=== PATIENT | female | born 1940 | race Caucasian/White ===

== ENCOUNTER → 2018-01-26 07:07 | Outpatient (CLI) | payer MEDICARE, SELFPAY ==
[2018-01-26 07:34] LABS: Hemoglobin A1C% w Est Avg Glu 7.6 % (4.0-6.0)
[2018-01-26 07:50] LABS: Alanine Aminotransferase 28 IU/L (9-52); Aspartate Aminotransferase 26 IU/L (14-36); BUN Creatinine Ratio 33.3 (6-22); Blood Urea Nitrogen 30 mg/dL (7-17); Calcium 10.1 mg/dL (8.4-10.2); Carbon Dioxide 30 mmol/L (22-32); Chloride 100 mmol/L (98-107); Cholesterol 102 mg/dL (140-199); Estimated Glomerular Filt Rate > 60.0 mL/min (>60); Glucose 122 mg/dL (80-110); HDL Cholesterol 42 mg/dL (40-60); HEMOLYSIS < 15 (0-50); LDL Cholesterol Calculated 40 mg/dL (<100); Potassium 4.6 mmol/L (3.4-5.1); Sodium 141 mmol/L (137-145); Triglycerides 101 mg/dL (35-150)
== END ==
PROVIDERS: PCP Internal Medicine; Visit Provider Internal Medicine
DX: I10 Essential (primary) hypertension (principal); E78.00 Pure hypercholesterolemia, unspecified; E11.9 Type 2 diabetes mellitus without complications
CPT/HCPCS: 36415; 80048; 80061; 83036; 84450; 84460

== ENCOUNTER → 2018-09-05 11:50 | Outpatient (CLI) | payer MEDICARE, SELFPAY ==
--- NOTE | 2018-09-05 | DI.RAD.S_ITS ---
PROCEDURE: XR CHEST 2V INDICATIONS: BRONCHITIS TECHNIQUE: 2 views of the chest were acquired. COMPARISON: [facility], , CHEST 1 VIEW, 09/18/2014, 17:53. FINDINGS: Surgical changes and devices: None. Lungs and pleura: Lungs are clear. No pleural effusions or pneumothorax. Bilateral perihilar infiltrates and peribronchial cuffing consistent with bronchitis or bronchopneumonia. Mediastinum: Mediastinal contours are normal. Heart size is normal. Bones and chest wall: No suspicious bony abnormalities. Soft tissues appear unremarkable. IMPRESSION: Bilateral perihilar infiltrates and peribronchial cuffing consistent with bronchitis. Dictated by: Santos Mujica M.D. on 09/05/2018 at 14:16 Approved by: Santos Mujica M.D. on 09/05/2018 at 14:25
== END ==
PROVIDERS: PCP Internal Medicine; Visit Provider Student in an Organized Health Care Education/Training Program
DX: J20.9 Acute bronchitis, unspecified (principal)
CPT/HCPCS: 71046

== ENCOUNTER → 2019-02-24 08:32 | Outpatient (CLI) | payer MEDICARE, SELFPAY | PROVIDERS: PCP Internal Medicine; Visit Provider Internal Medicine | DX: E11.9 Type 2 diabetes mellitus without complications (principal) | CPT/HCPCS: 36415; 83036 ==

== ENCOUNTER 2019-05-08 10:48 | Emergency (ER) | payer MEDICARE, SELFPAY ==
[2019-05-08] VITALS (8 sets, daily range): BP systolic 110–154; BP diastolic 63–100; PULSE 72–122; RESP 20–27; TEMP 36.3; O2SAT 96–98; BMI 24.0
--- NOTE | 2019-05-08 11:20 | DI.RAD.S_ITS ---
PROCEDURE: XR CHEST 2V INDICATIONS: shortness of breath TECHNIQUE: 2 views of the chest were acquired. COMPARISON: [facility], CR, XR CHEST 2V, 09/05/2018, 12:02. FINDINGS: Surgical changes and devices: None. Lungs and pleura: Interstitial prominence within the perihilar regions is present. There slight blunting of left costophrenic angle. No large area of consolidation, effusion, or pneumothorax is evident. Mediastinum: Mediastinal contours are normal. The heart is enlarged, which is increased in the interim. Bones and chest wall: No suspicious bony abnormalities. Soft tissues appear unremarkable. IMPRESSION: 1. Cardiomegaly with mild to moderate vascular congestion, likely representing developing pulmonary edema. No definite pneumonia. 2. Trace left effusion. Dictated by: Clark Bolaños M.D. on 05/08/2019 at 10:39 Approved by: Clark Bolaños M.D. on 05/08/2019 at 10:42
[2019-05-08 11:30] LABS: Add Manual Diff / Slide Review NO; Basophils Absolute Auto 0 /uL (0-100); Basophils Percent Auto 0.5 % (0-2); Eosinophils Absolute Auto 200 /uL (0-450); Eosinophils Percent Auto 2.9 % (2-4); Hematocrit 28.4 % (36-46); Lymphocytes Absolute Auto 1700 /uL (1100-4500); Lymphocytes Percent Auto 22.3 % (25-40); Mean Corpuscular HGB Conc 31.7 % (30-36); Mean Corpuscular Hemoglobin 22.5 PG (26-34); Mean Corpuscular Volume 71.2 fL (80-100); Monocytes Absolute Auto 600 /uL (0-900); Monocytes Percent Auto 7.2 % (3-14); Neutrophils Absolute Auto 5200 /uL (1500-7000); Neutrophils Percent Auto 67.1 % (50-75); Platelet Count 299 X10^3/uL (150-400); Red Blood Cell Count 3.99 X10^6/uL (4.0-5.2); Red Cell Distribution Width 18.4 % (11.6-14.8); White Blood Cell Count 7.8 X10^3/uL (4.5-11.0)
[2019-05-08 11:36] LABS: Alanine Aminotransferase 67 IU/L (<35); Albumin 3.8 g/dL (3.5-5.0); Albumin Globulin Ratio 1.7 (1.0-2.8); Alkaline Phosphatase 99 U/L (38-126); Aspartate Aminotransferase 47 IU/L (14-36); BUN Creatinine Ratio 27.5 (6-22); Blood Urea Nitrogen 22 mg/dL (7-17); Calcium 8.6 mg/dL (8.4-10.2); Carbon Dioxide 22 mmol/L (22-32); Chloride 106 mmol/L (98-107); Estimated Glomerular Filt Rate > 60.0 mL/min (>60); Globulin 2.3 g/dL (1.7-4.1); Glucose 241 mg/dL (80-110); HEMOLYSIS < 15 (0-50); Potassium 4.2 mmol/L (3.4-5.1); Sodium 139 mmol/L (137-145); Total Protein 6.1 g/dL (6.3-8.2)
[2019-05-08 11:53] LABS: Lactate (Lactic Acid) 2.8 mmol/L (0.7-2.1)
--- NOTE | 2019-05-08 12:31 | ED_ITS ---
HPI - SOB/Dyspnea General Chief Complaint: Shortness of Breath/Dyspnea Stated Complaint: suspected hearrt attack Time Seen by Provider: 05/08/19 11:12 Source: patient Mode of arrival: Ambulatory Limitations: no limitations History of Present Illness HPI Narrative: Patient comes emergency department complaining of shortness of breath, especially with this is been going on since this morning, she states. Patient states she has chronic ?puffiness? of her bilateral ankles and feet, but this has not seemed worse than usual. Patient denies any chest pain, nausea or vomiting, fever chills, or cough. She states that she has a history of coronary artery disease and had 3 stents placed back in 2014. She states she sees Dr. Rosa for Cardiology, but her last visit was in 2017. Patient denies any other complaints at this time. Related Data Home Medications Medication Instructions Recorded Confirmed atorvastatin [Lipitor] 20 mg PO DAILY #0 08/22/17 05/08/19 allopurinol 200 mg PO DAILY 05/08/19 05/08/19 aspirin 325 mg PO DAILY 05/08/19 05/08/19 codeine-guaifenesin [Guaifenesin 5 ml PO Q4-6H PRN 05/08/19 05/08/19 AC] gabapentin 300 mg PO TID 05/08/19 05/08/19 insulin NPH isoph U-100 human 10 unit SUBCUT BID 05/08/19 05/08/19 [Novolin N NPH U-100 Insulin] lidocaine HCl 1 applic TOPICAL TID PRN 05/08/19 05/08/19 lisinopril 40 mg PO DAILY 05/08/19 05/08/19 metformin 1,000 mg PO BID 05/08/19 05/08/19 valacyclovir [Valtrex] 2,000 mg PO BID 05/08/19 05/08/19 Previous Rx's Medication Instructions Recorded diltiazem HCl [Cardizem CD] 240 mg PO DAILY #20 cap 05/08/19 furosemide [Lasix] 20 mg PO QAM #7 tab 05/08/19 Allergies Allergy/AdvReac Type Severity Reaction Status Date / Time No Known Drug Allergies Allergy Verified 02/18/19 08:50 Review of Systems Constitutional Constitutional: Denies chills, Denies fatigue, Denies fever(s), Denies frequent falls, Denies lethargy and Denies weakness Eyes Eyes: Denies change in vision, Denies eye discharge, Denies irritation and Den ies loss of vision ENT Ears, Nose, Mouth, and Throat: Denies change in voice, Denies dizziness, Denies neck pain, Denies sore throat and Denies throat swelling Cardiovascular Cardiovascular: Denies chest pain, Denies irregular heart rhythm, Denies lightheadedness, Denies palpitations, Reports dyspnea, Reports dyspnea on exer tion and Denies orthopnea Respiratory Respiratory: Denies cough, Reports dyspnea, Reports dyspnea on exertion and Denies wheezing Gastrointestinal Gastrointestinal: Denies abdominal pain, Denies change in bowel habits, Denies diarrhea, Denies nausea and Denies vomiting Genitourinary Genitourinary: Denies hematuria, Denies flank pain, Denies urinary incontinence and Denies urinary urgency Musculoskeletal Musculoskeletal: Denies back pain, Denies muscle weakness, Denies neck pain, Denies numbness and Denies tingling Integumentary/Breasts Skin/Breast: Denies pruritus, Denies erythema, Denies rash and Denies wounds Neurologic Neurologic: Denies behavioral changes, Denies confusion, Denies dizziness, Denies frequent falls, Denies loss of vision, Denies numbness, Denies tingling and Denies weakness Psychiatric Psychiatric: Denies anxiety, Denies behavioral changes, Denies confusion, Denies depression, Denies homicidal ideation and Denies suicidal ideation Endocrine Endocrine: Denies fatigue, Denies flushing and Denies palpitations Hematologic/Lymphatic Hematologic/Lymphatic: Denies easy bruising Allergic/Immunologic Allergic/Immunologic: Denies urticaria, Denies throat swelling and Denies wheezing Patient History Medical History CAD (coronary artery disease) (Acute) HTN (hypertension) (Acute) Surgical History H/O coronary angioplasty (Acute) Social History Smoking Status: Never smoker alcohol intake frequency: other Substance Use Type: does not use Exam Initial Vital Signs Initial Vital Signs: Vital Signs Temperature 97.3 F L 05/08/19 10:57 Pulse Rate 115 H 05/08/19 10:57 Respiratory Rate 20 05/08/19 10:57 Blood Pressure 154/100 H 05/08/19 10:57 Pulse Oximetry 96 05/08/19 10:57 Const General: cooperative and well developed Nutritional Appearance: well nourished Orientation: alert, awake, oriented x3 and not confused [facility] Head: normocephalic and atraumatic Ears: external ears normal Nose: external nose normal and No nasal discharge Face and sinus: face symmetric and No dry mucous membranes Mouth: oral mucosae normal and moist mucous membranes Teeth and gingiva: dentition normal Eyes General: appearance normal, both eyes and all related structures Eyelids: eyelids normal Conjunctivae: conjunctivae normal Sclera: sclerae normal Pupils: PERRL EOM: EOM intact bilaterally Neck Neck: normal visual inspection, trachea midline, No lymphadenopathy, No midline deformity and No JVD Lymphatic: No lymphedema Chest Chest: normal inspection of the chest Resp Effort & Inspection: normal respiratory effort, able to speak in complete sentences, no respiratory distress and no use of accessory muscles Auscultation: clear to auscultation bilaterally, no rales, no rhonchi and no wheezes Cardio Rate: regular rate Rhythm: regular rhythm Heart Sounds: no click, no gallops, no murmurs and no rubs Pulses: normal peripheral pulses GI Inspection: non-distended Palpation: soft, no hepatosplenomegaly, No guarding, No pulsatile mass and No tender Auscultation: normal bowel sounds Back/Spine/Pelvis Back: No CVA tenderness Cervical Spine: cervical ROM normal and No pain with cervical ROM Thoracic/Lumbar Spine: thoracic and lumbar spine normal to inspection Skin General: no rashes or lesions noted, No jaundice and No petechiae Neuro General: alert, oriented x3, gait normal and no focal motor deficits Speech: speech normal Extrem General: full ROM, no clubbing, cyanosis or edema, no pedal edema and no calf tenderness Psych Appearance: well kempt Mental Status: mental status grossly normal Attitude: cooperative Thought Content: normal and suicidality Judgment: judgment good Course Course Course Narrative: Patient was worked up with labs, EKG, and chest x-ray. She was found to be atrial fibrillation with mild RVR, as as to CHF. She was treated with IV Cardizem and Lasix, to which she did respond very well. patient was found to be feeling much better, and had urinated quite a bit in the emergency department. I felt she was stable for discharge home. The patient is established with Dr. Rosa of Cardiology, with whom she can follow up. I have advised her to call Dr. Rosa's office to set up a follow-up appointment to determine a good long-term plan for her conditions. Orders Ordered: Discontinued Medications Diltiazem HCl (Cardizem) 20 mg IV NOW ONE Stop: 05/08/19 12:29 Last Admin: 05/08/19 12:32 Dose: 20 mg Documented by: PAZ Furosemide (Lasix) 40 mg IV NOW ONE Stop: 05/08/19 13:46 Last Admin: 05/08/19 13:49 Dose: 40 mg Documented by: PAZ Vital Signs Vital signs: Vital Signs - 8 hr 05/08/19 10:57 05/08/19 11:39 05/08/19 12:00 Temperature 97.3 F L Pulse Rate 115 H 79 114 H Respiratory Rate 20 27 H 27 H Blood Pressure 154/100 H Blood Pressure [Left Arm] 137/78 120/63 Pulse Oximetry 96 97 97 MDM - SOB/Dyspnea Medical Records Attestation: I reviewed the patient's medical records. Lab Data Attestation: I reviewed the patient's lab results. Result diagrams: 05/08/19 11:13 05/08/19 11:13 Labs: Lab Results 05/08/19 05/08/19 05/08/19 Range/Units 11:13 11:13 11:25 WBC 7.8 (4.5-11.0) X10^3/uL RBC 3.99 L (4.0-5.2) X10^6/uL Hgb 9.0 L (12.0-16.0) g/dL Hct 28.4 L (36-46) % MCV 71.2 L (80-100) fL MCH 22.5 L (26-34) PG MCHC 31.7 (30-36) % RDW 18.4 H (11.6-14.8) % Plt Count 299 (150-400) X10^3/uL Neut % (Auto) 67.1 (50-75) % Lymph % (Auto) 22.3 L (25-40) % [place] % (Auto) 7.2 (3-14) % Eos % (Auto) 2.9 (2-4) % Baso % (Auto) 0.5 (0-2) % Neut # (Auto) 5200 (9495-8095) /uL Lymph # (Auto) 1700 (4837-2918) /uL [place] # (Auto) 600 (0-900) /uL Eos # (Auto) 200 (0-450) /uL Baso # (Auto) 0 (0-100) /uL Sodium 139 (137-145) mmol/L Potassium 4.2 (3.4-5.1) mmol/L Chloride 106 (98-107) mmol/L Carbon Dioxide 22 (22-32) mmol/L BUN 22 H (7-17) mg/dL Creatinine 0.80 (0.52-1.04) mg/dL Estimated GFR > 60.0 (>60) mL/min BUN/Creatinine Ratio 27.5 H (6-22) Glucose 241 H (80-110) mg/dL Lactate (0.7-2.1) mmol/L Calcium 8.6 (8.4-10.2) mg/dL Total Bilirubin 1.0 (0.2-1.3) mg/dL AST 47 H (14-36) IU/L ALT 67 H (<35) IU/L Alkaline Phosphatase 99 (38-126) U/L Total Creatine Kinase 53 (30-135) U/L CK-MB (CK-2) TNP CK-MB (CK-2) Rel Index TNP Troponin I 0.016 (0.01-0.034) ng/mL B-Natriuretic Peptide (<100) Total Protein 6.1 L (6.3-8.2) g/dL Albumin 3.8 (3.5-5.0) g/dL Globulin 2.3 (1.7-4.1) g/dL Albumin/Globulin Ratio 1.7 (1.0-2.8) 05/08/19 05/08/19 05/08/19 Range/Units 11:35 12:29 13:47 WBC (4.5-11.0) X10^3/uL RBC (4.0-5.2) X10^6/uL Hgb (12.0-16.0) g/dL Hct (36-46) % MCV (80-100) fL MCH (26-34) PG MCHC (30-36) % RDW (11.6-14.8) % Plt Count (150-400) X10^3/uL Neut % (Auto) (50-75) % Lymph % (Auto) (25-40) % [place] % (Auto) (3-14) % Eos % (Auto) (2-4) % Baso % (Auto) (0-2) % Neut # (Auto) (2413-1463) /uL Lymph # (Auto) (9200-6271) /uL [place] # (Auto) (0-900) /uL Eos # (Auto) (0-450) /uL Baso # (Auto) (0-100) /uL Sodium (137-145) mmol/L Potassium (3.4-5.1) mmol/L Chloride (98-107) mmol/L Carbon Dioxide (22-32) mmol/L BUN (7-17) mg/dL Creatinine (0.52-1.04) mg/dL Estimated GFR (>60) mL/min BUN/Creatinine Ratio (6-22) Glucose (80-110) mg/dL Lactate 2.8 H 2.6 H (0.7-2.1) mmol/L Calcium (8.4-10.2) mg/dL Total Bilirubin (0.2-1.3) mg/dL AST (14-36) IU/L ALT (<35) IU/L Alkaline Phosphatase (38-126) U/L Total Creatine Kinase (30-135) U/L CK-MB (CK-2) CK-MB (CK-2) Rel Index Troponin I (0.01-0.034) ng/mL B-Natriuretic Peptide 239 H (<100) Total Protein (6.3-8.2) g/dL Albumin (3.5-5.0) g/dL Globulin (1.7-4.1) g/dL Albumin/Globulin Ratio (1.0-2.8) 05/08/19 05/08/19 Range/Units 13:47 13:47 WBC (4.5-11.0) X10^3/uL RBC (4.0-5.2) X10^6/uL Hgb (12.0-16.0) g/dL Hct (36-46) % MCV (80-100) fL MCH (26-34) PG MCHC (30-36) % RDW (11.6-14.8) % Plt Count (150-400) X10^3/uL Neut % (Auto) (50-75) % Lymph % (Auto) (25-40) % [place] % (Auto) (3-14) % Eos % (Auto) (2-4) % Baso % (Auto) (0-2) % Neut # (Auto) (5995-2261) /uL Lymph # (Auto) (5707-9017) /uL [place] # (Auto) (0-900) /uL Eos # (Auto) (0-450) /uL Baso # (Auto) (0-100) /uL Sodium (137-145) mmol/L Potassium (3.4-5.1) mmol/L Chloride (98-107) mmol/L Carbon Dioxide (22-32) mmol/L BUN (7-17) mg/dL Creatinine (0.52-1.04) mg/dL Estimated GFR (>60) mL/min BUN/Creatinine Ratio (6-22) Glucose (80-110) mg/dL Lactate (0.7-2.1) mmol/L Calcium (8.4-10.2) mg/dL Total Bilirubin (0.2-1.3) mg/dL AST (14-36) IU/L ALT (<35) IU/L Alkaline Phosphatase (38-126) U/L Total Creatine Kinase (30-135) U/L CK-MB (CK-2) CK-MB (CK-2) Rel Index Troponin I 0.014 (0.01-0.034) ng/mL B-Natriuretic Peptide 262 H (<100) Total Protein (6.3-8.2) g/dL Albumin (3.5-5.0) g/dL Globulin (1.7-4.1) g/dL Albumin/Globulin Ratio (1.0-2.8) Imaging Data Chest x-ray: Radiologist's impression: [address] [address] XRay Report Signed Patient: Carlos Zhang#: [id number] : 1Acct:[id number] Age/Sex: 78 / FDate of Service: 05/08/19 Loc: ED Accession Number: [id number] Procedure: XR chest 2V Ordering Provider: Joyce Hua MD PROCEDURE: XR CHEST 2V INDICATIONS: shortness of breath TECHNIQUE: 2 views of the chest were acquired. COMPARISON: [facility], CR, XR CHEST 2V, 09/05/2018, 12:02. FINDINGS: Surgical changes and devices: None. Lungs and pleura: Interstitial prominence within the perihilar regions is present. There slight blunting of left costophrenic angle. No large area of consolidation, effusion, or pneumothorax is evident. Mediastinum: Mediastinal contours are normal. The heart is enlarged, which is increased in the interim. Bones and chest wall: No suspicious bony abnormalities. Soft tissues appear unremarkable. IMPRESSION: 1. Cardiomegaly with mild to moderate vascular congestion, likely representing developing pulmonary edema. No definite pneumonia. 2. Trace left effusion. Dictated by: Clark Bolaños M.D. on 05/08/2019 at 10:39 Approved by: Clark Bolaños M.D. on 05/08/2019 at 10:42 ECG Data Attestation: I personally reviewed and interpreted this ECG as follows: (See below) Interpretation: Twelve lead EKG performed May 08, 2018 at 10:59 a.m., as well as follows: Irregular ventricular rhythm with a rate of 119 beats per minute P waves in [place] intervals undetectable QRS duration 90 milliseconds QTC interval [address] T wave changes Interpretation: Atrial fibrillation with rapid ventricular response; borderline right axis deviation; nonspecific ST T wave abnormality, no signs of acute ischemia; abnormal EKG as interpreted by ED MD. Discharge Plan Departure Patient Disposition: Home Clinical Impression: Atrial fibrillation with rapid ventricular response Congestive heart failure Qualifiers: Heart failure type: unspecified Heart failure chronicity: acute on chronic Qualified Code(s): I50.9 - Heart failure, unspecified Discharge Date/Time: 05/08/19 14:53 Instructions: DI for Heart Failure, DI for Atrial Fibrillation Activity Restrictions/Additional Instructions: There is no evidence of heart attack or pneumonia today. You do have an irregular heart rhythm called atrial fibrillation. Thishas caused some mild congestive heart failure, meaning that there has been some back up of your blood between the right heart and the left heart, and this has caused some fluid to buildup in your lungs. You have been started on a diuretic medication for this today. It is important that you follow up with Dr. Rosa for a recheck regarding these issues. You will be started on a temporary course of a diuretic from the emergency department today, and you also be started on medication for the atrial fibrillation. However, it is up to Dr. Rosa to determine the best long-term plan for these conditions. Please call her office 1st thing tomorrow morning to make an appointment to follow up with her in the next week or two. Prescriptions: New furosemide [Lasix] 20 mg tablet 20 mg PO QAM Qty: 7 RF: 0 diltiazem HCl [Cardizem CD] 240 mg capsule,extended release 24hr 240 mg PO DAILY Qty: 20 RF: 0 No Action atorvastatin [Lipitor] 20 MG tablet 20 mg PO DAILY Qty: 0 RF: 0 allopurinol 100 mg Tablet 200 mg PO DAILY RF: 0 metformin 1,000 mg Tablet 1,000 mg PO BID RF: 0 Novolin N NPH U-100 Insulin 100 unit/mL Suspension 10 unit SUBCUT BID RF: 0 codeine-guaifenesin [Guaifenesin AC] 10-100 mg/5 mL Liquid 5 ml PO Q4-6H PRN (Reason: Cough) RF: 0 lisinopril 40 mg Tablet 40 mg PO DAILY RF: 0 lidocaine HCl 2 % Cream 1 applic TOPICAL TID PRN (Reason: pain) RF: 0 valacyclovir [Valtrex] 1,000 MG tablet 2,000 mg PO BID RF: 0 gabapentin 300 mg Capsule 300 mg PO TID RF: 0 aspirin 325 mg Tablet 325 mg PO DAILY RF: 0 Referrals: Sayda Rosa MD [Physician] - Fariha Rollins MD [Primary Care Provider] -
[2019-05-08] MEDS: dilTIAZem 5 MG/ML SDV 20 MG IV (12:32)
[2019-05-08 12:35] LABS: Creatine Kinase 53 U/L (30-135)
[2019-05-08 12:49] LABS: Troponin I 0.016 ng/mL (0.01-0.034)
[2019-05-08 12:55] LABS: B Type Natriuretic Peptide 239 (<100)
[2019-05-08 13:38] LABS: Reflexed Lactate in 2 Hours Y
[2019-05-08] MEDS: FUROSEMIDE 40 MG/4 ML VIAL IV (13:49)
[2019-05-08 14:06] LABS: Lactate 2HR (Lactic Acid Rflx) 2.6 mmol/L (0.7-2.1)
[2019-05-08 14:08] LABS: B Type Natriuretic Peptide 262 (<100)
[2019-05-08 14:18] LABS: Troponin I 0.014 ng/mL (0.01-0.034)
== END 2019-05-08 14:53 | disposition home or self-care (01) ==
PROVIDERS: Emergency Provider Emergency Medicine; PCP Internal Medicine
DX: I48.20 Chronic atrial fibrillation, unspecified (principal); I50.9 Heart failure, unspecified
CPT/HCPCS: 36415; 71046; 80053; 82550; 83605; 83880; 84484; 85025; 93005; 96374; 96375; 99284; 99285; J1940

== ENCOUNTER → 2019-05-16 17:28 | Outpatient (CLI) | payer MEDICARE, SELFPAY ==
[2019-05-16 18:21] LABS: Magnesium 1.1 mg/dL (1.6-2.3)
[2019-05-16 18:37] LABS: Free T4, Direct Thyroxine 0.97 ng/dL (0.78-2.19)
[2019-05-16 18:51] LABS: Thyroid Stimulating Hormone 2.38 uIU/mL (0.47-4.68)
== END ==
PROVIDERS: PCP Internal Medicine; Visit Provider Internal Medicine
DX: I48.0 Paroxysmal atrial fibrillation (principal)
CPT/HCPCS: 36415; 83735; 84439; 84443

== ENCOUNTER → 2019-05-19 14:39 | Outpatient (CLI) | payer MEDICARE, SELFPAY ==
--- NOTE | 2019-05-19 | DI.ECHO.S_ITS ---
[facility]---------+ [facility] +---------+ : : [address] [place] : : : : [id number] : : : : Phone: [phone]+ Echocardiogram Report + + :Name: RIZWAN SOLIMAN Study Date: 05/19/2019 Height: 64 in : :[facility] Weight: 139 lb : : Gender: Female BSA: 1.7 m2 : :: 1940 Age: 78 yrs BP: 144/78 mmHg: :Reason For Study: Atrial fibrillation - paroxysmal : :Ordering Physician: Sayda : :Moe Escobar Performed By: Flaquita Roman : :Referring: Fariha Rollins : + + Interpretation Summary Afib with controlled rate. Normal LV size and wall thickness; normal wall motion and LV systolic function. Low normal ejection fraction. EF is 50-55%. Severe LA enlargement; mild-moderate RA enlargement. No significant valvular abnormalities. Compared to prior study 01/17/2014 afib is new. LA enlargement progressed from mild to severe. Procedure: A two-dimensional transthoracic echocardiogram with color flow and Doppler was performed. The study quality was technically good. Comparison is made with the echocardiogram of 01-17-14. The patient was in atrial fibrillation with heart rates between 58-84 bpm during the exam. Left Ventricle: The left ventricle is normal in size. There is normal left ventricular wall thickness. The ejection fraction is estimated to be 55-60%. Diastolic function could not be accurately assessed due to atrial fibrillation. Right Ventricle: Borderline right ventricular enlargement. The right ventricular systolic function is normal. Atria: The left atrium is severely dilated. The right atrium is mild to moderately dilated. The interatrial septum is intact with no evidence for an atrial septal defect. Mitral Valve: The mitral valve is grossly normal. There is mild mitral regurgitation. Aortic Valve: The aortic valve is trileaflet. The aortic valve opens well. There is no aortic regurgitation. Tricuspid Valve: The tricuspid valve is not well visualized, but is grossly normal. There is mild tricuspid regurgitation. The right ventricular systolic pressure is estimated to be at least 34 mmHg based on an estimated right atrial pressure of 3 mm Hg. Pulmonic Valve: The pulmonic valve is not well seen, but is grossly normal. There is trace pulmonic regurgitation. Great Vessels: The aortic root is normal size. The dimensions of the ascending aorta are normal. The ascending aorta is normal in size. The IVC is of normal diameter and collapses greater than 50% with a sniff. This suggests a low right atrial pressure of 3 mm Hg. Pericardium/ Pleura There is no pericardial effusion. There is no pleural effusion. MMode/2D Measurements & Calculations LVIDd: 5.3 cm Ao root diam: 2.9 cm LVIDs: 3.7 cm Aortic Jxn: 2.3 cm FS: 29.9 % asc Aorta Diam: 3.0 cm EPSS: 0.69 cm Ao Arch Diam (Prox Trans): 3.0 cm IVSd: 1.0 cm LVPWd: 1.0 cm LV marcos. diameter/BSA (cm/m^2): 3.1 LV sys. diameter/BSA (cm/m^2): 2.2 LA dimension: 4.9 cm RA long axis: 5.8 cm LA A2 area: 27.1 cm2 RA area: 22.1 cm2 LA A4 area: 27.8 cm2 RA vol: 71.9 ml LA length (vol): 6.7 cm RA : 42.9 ml/m2 LA vol: 95.8 ml IVC diam: 1.5 cm LA vol index: 57.2 ml/m2 RVDd major: 6.4 cm RVD1 (basal): 4.1 cm RVD2 (mid): 3.6 cm Doppler Measurements & Calculations Ao V2 max: 146.0 cm/sec MV E max evelio: 104.1 cm/sec Ao V2 mean: 89.2 cm/sec MV A max evelio: 24.8 cm/sec Ao max P.5 mmHg MV E/A: 4.2 Ao mean P.8 mmHg MV dec time: 0.16 sec Ao V2 VTI: 28.7 cm MV P1/2t: 39.2 msec TR max evelio: 277.3 cm/sec MV P1/2t max evelio: 103.5 cm/sec TR max P.8 mmHg MVA(P1/2t): 5.6 cm2 PA V2 max: 97.4 cm/sec PA V2 mean: 58.3 cm/sec PA mean P.6 mmHg PA Accel Time: 0.10 sec Electronically signed by: Sayda Rosa M.D. on Reading Physician:05/23/2019 12:15 PM
== END ==
PROVIDERS: Family Provider Internal Medicine; PCP Internal Medicine; Visit Provider Internal Medicine
DX: I08.1 Rheumatic disorders of both mitral and tricuspid valves (principal); I48.0 Paroxysmal atrial fibrillation
CPT/HCPCS: 93306

== ENCOUNTER → 2019-07-01 09:32 | Outpatient (CLI) | payer MEDICARE, SELFPAY ==
[2019-07-01 10:33] LABS: Alanine Aminotransferase 15 IU/L (<35); Albumin Globulin Ratio 1.5 (1.0-2.8); Alkaline Phosphatase 85 U/L (38-126); Aspartate Aminotransferase 23 IU/L (14-36); BUN Creatinine Ratio 36.7 (6-22); Bilirubin Total 0.5 mg/dL (0.2-1.3); Blood Urea Nitrogen 33 mg/dL (7-17); Calcium 9.2 mg/dL (8.4-10.2); Carbon Dioxide 26 mmol/L (22-32); Chloride 103 mmol/L (98-107); Cholesterol 143 mg/dL (140-199); Estimated Glomerular Filt Rate > 60.0 mL/min (>60); Globulin 2.6 g/dL (1.7-4.1); Glucose 130 mg/dL (80-110); HDL Cholesterol 36 mg/dL (40-60); HEMOLYSIS < 15 (0-50); LDL Cholesterol Calculated 84 mg/dL (<100); Potassium 4.3 mmol/L (3.4-5.1); Sodium 138 mmol/L (137-145); Total Protein 6.6 g/dL (6.3-8.2); Triglycerides 114 mg/dL (35-150)
[2019-07-01 10:50] LABS: Hemoglobin A1C% w Est Avg Glu 7.4 % (4.0-6.0)
== END ==
PROVIDERS: Family Provider Internal Medicine; PCP Internal Medicine; Visit Provider Internal Medicine
DX: E11.65 Type 2 diabetes mellitus with hyperglycemia (principal); E78.00 Pure hypercholesterolemia, unspecified; I10 Essential (primary) hypertension
CPT/HCPCS: 36415; 80053; 80061; 83036

== ENCOUNTER → 2019-07-08 08:20 | Outpatient (CLI) | payer MEDICARE, SELFPAY ==
[2019-07-08 09:19] LABS: Add Manual Diff / Slide Review NO; Basophils Absolute Auto 0 /uL (0-100); Basophils Percent Auto 0.4 % (0-2); Eosinophils Absolute Auto 300 /uL (0-450); Eosinophils Percent Auto 3.4 % (2-4); Hematocrit 31.5 % (36-46); Hemoglobin 9.8 g/dL (12.0-16.0); Lymphocytes Absolute Auto 2500 /uL (1100-4500); Lymphocytes Percent Auto 29.4 % (25-40); Mean Corpuscular Hemoglobin 21.3 PG (26-34); Mean Corpuscular Volume 68.7 fL (80-100); Monocytes Absolute Auto 500 /uL (0-900); Monocytes Percent Auto 6.5 % (3-14); Neutrophils Absolute Auto 5100 /uL (1500-7000); Neutrophils Percent Auto 60.3 % (50-75); Platelet Count 341 X10^3/uL (150-400); Red Blood Cell Count 4.58 X10^6/uL (4.0-5.2); Red Cell Distribution Width 19.9 % (11.6-14.8); White Blood Cell Count 8.4 X10^3/uL (4.5-11.0)
[2019-07-08 10:24] LABS: Hypochromasia 1+
[2019-07-08 10:25] LABS: Acanthocytes 1+; Anisocytosis 1+; Microcytosis 2+
== END ==
PROVIDERS: PCP Internal Medicine; Visit Provider Internal Medicine
DX: D64.89 Other specified anemias (principal)
CPT/HCPCS: 36415; 85025

== ENCOUNTER → 2020-03-08 08:49 | Outpatient (CLI) | payer MEDICARE, SELFPAY ==
[2020-03-08 09:45] LABS: Hemoglobin A1C% w Est Avg Glu 9.1 % (4.0-6.0)
[2020-03-08 10:00] LABS: Alanine Aminotransferase 28 IU/L (<35); Albumin 3.9 g/dL (3.5-5.0); Albumin Globulin Ratio 1.6 (1.0-2.8); Alkaline Phosphatase 115 U/L (38-126); Aspartate Aminotransferase 31 IU/L (14-36); BUN Creatinine Ratio 28.2 (6-22); Bilirubin Total 0.7 mg/dL (0.2-1.3); Blood Urea Nitrogen 29 mg/dL (7-17); Calcium 9.4 mg/dL (8.4-10.2); Carbon Dioxide 28 mmol/L (22-32); Chloride 101 mmol/L (98-107); Cholesterol 142 mg/dL (140-199); Estimated Glomerular Filt Rate 51.7 mL/min (>60); Globulin 2.5 g/dL (1.7-4.1); Glucose 148 mg/dL (80-110); HDL Cholesterol 42 mg/dL (40-60); HEMOLYSIS < 15 (0-50); LDL Cholesterol Calculated 65 mg/dL (<100); Potassium 5.3 mmol/L (3.4-5.1); Sodium 140 mmol/L (137-145); Total Protein 6.4 g/dL (6.3-8.2); Triglycerides 173 mg/dL (35-150)
== END ==
PROVIDERS: PCP Internal Medicine; Referring Provider Internal Medicine; Visit Provider Internal Medicine
DX: I10 Essential (primary) hypertension (principal); E78.00 Pure hypercholesterolemia, unspecified; E11.9 Type 2 diabetes mellitus without complications
CPT/HCPCS: 36415; 80053; 80061; 83036

== ENCOUNTER → 2020-04-16 14:11 | Outpatient (CLI) | payer MEDICARE, SELFPAY ==
[2020-04-18 07:29] LABS: COVID19 Sendout Not Detected (Not Detect)
== END ==
PROVIDERS: PCP Internal Medicine; Visit Provider Physician Assistant
DX: R05 Cough (principal); R06.02 Shortness of breath; R42 Dizziness and giddiness; R50.9 Fever, unspecified
CPT/HCPCS: 87635

== ENCOUNTER → 2020-07-03 14:37 | Outpatient (ROUT) | payer MEDICARE, SELFPAY ==
[2020-07-03 14:47] LABS: Add Manual Diff / Slide Review NO; Basophils Absolute Auto 100 /uL (0-100); Basophils Percent Auto 0.6 % (0-2); Eosinophils Absolute Auto 300 /uL (0-450); Hematocrit 37.5 % (36-46); Hemoglobin 11.4 g/dL (12.0-16.0); Lymphocytes Absolute Auto 2100 /uL (1100-4500); Lymphocytes Percent Auto 24.9 % (25-40); Mean Corpuscular HGB Conc 30.4 % (30-36); Mean Corpuscular Hemoglobin 22.4 PG (26-34); Mean Corpuscular Volume 73.6 fL (80-100); Monocytes Absolute Auto 600 /uL (0-900); Monocytes Percent Auto 7.3 % (3-14); Neutrophils Absolute Auto 5500 /uL (1500-7000); Neutrophils Percent Auto 63.2 % (50-75); Platelet Count 300 X10^3/uL (150-400); Red Blood Cell Count 5.09 X10^6/uL (4.0-5.2); Red Cell Distribution Width 20.1 % (11.6-14.8); White Blood Cell Count 8.6 X10^3/uL (4.5-11.0)
[2020-07-03 14:58] LABS: HEMOLYSIS < 15 (0-50); Iron 33 ug/dL (37-170)
[2020-07-03 15:00] LABS: Alanine Aminotransferase 21 IU/L (<35); Albumin 3.8 g/dL (3.5-5.0); Albumin Globulin Ratio 1.6 (1.0-2.8); Alkaline Phosphatase 152 U/L (38-126); Aspartate Aminotransferase 28 IU/L (14-36); BUN Creatinine Ratio 30.5 (6-22); Bilirubin Total 0.6 mg/dL (0.2-1.3); Blood Urea Nitrogen 25 mg/dL (7-17); Calcium 9.1 mg/dL (8.4-10.2); Carbon Dioxide 29 mmol/L (22-32); Chloride 102 mmol/L (98-107); Cholesterol 161 mg/dL (140-199); Estimated Glomerular Filt Rate > 60.0 mL/min (>60); Globulin 2.4 g/dL (1.7-4.1); Glucose 222 mg/dL (80-110); HDL Cholesterol 36 mg/dL (40-60); HEMOLYSIS < 15 (0-50); LDL Cholesterol Calculated 76 mg/dL (<100); Potassium 4.2 mmol/L (3.4-5.1); Sodium 137 mmol/L (137-145); Total Protein 6.2 g/dL (6.3-8.2); Triglycerides 243 mg/dL (35-150)
[2020-07-03 15:38] LABS: Anisocytosis 2+; Hypochromasia 1+; Microcytosis 2+; Platelet Estimate Adequate on smear; Poikilocytosis 1+
[2020-07-03 15:52] LABS: Percent Iron Saturation 6 % (15-50); Total Iron Binding Capacity 587 ug/dL (265-497); Transferrin 455 mg/dL (206-381)
[2020-07-03 16:19] LABS: Ferritin 6 ng/mL (11-264)
[2020-07-03 16:49] LABS: Folate > 20.0 ng/mL (2.76-20.0); Vitamin B12 645 pg/mL (239-931)
== END ==
PROVIDERS: PCP Internal Medicine; Visit Provider Internal Medicine
DX: I10 Essential (primary) hypertension (principal); D64.9 Anemia, unspecified; E78.5 Hyperlipidemia, unspecified
CPT/HCPCS: 80053; 80061; 82607; 82728; 82746; 83540; 83550; 85025

== ENCOUNTER → 2021-05-17 09:27 | Outpatient (CLI) | payer MEDICARE, SELFPAY ==
--- NOTE | 2021-05-17 | DI.MG.S_ITS ---
BILATERAL DIGITAL SCREENING MAMMOGRAM 3D/2D WITH CAD: 05/17/2021 CLINICAL: Routine screening. Family history of breast cancer. Comparison is made to exams dated: 11/06/2016 mammogram, 06/18/2010 mammogram, and 04/02/2009 mammogram - [facility]. The tissue of both breasts is heterogeneously dense. This may lower the sensitivity of mammography. Current study was also evaluated with a Computer Aided Detection (CAD) system. There are benign calcifications in both breasts. No significant masses, calcifications, or other findings are seen in either breast. There has been no significant interval change. IMPRESSION: BENIGN There is no mammographic evidence of malignancy. A 1 year screening mammogram is recommended. This exam was interpreted at Station ID: [id number]. NOTE: For mammograms, a report in lay terms will be sent to the patient. Approximately 15% of breast malignancies will not be visualized mammographically. In the management of a palpable breast mass, a negative mammogram must not discourage biopsy of a clinically suspicious lesion. Electronically Signed By: Wiliam spear/brooklynn:05/19/2021 09:57:46 letter sent: Normal Exam ACR BI-RADS Category 2: Benign Finding(s) [id number]
== END ==
PROVIDERS: PCP Internal Medicine; Referring Provider Internal Medicine; Visit Provider Internal Medicine
DX: Z12.31 Encounter for screening mammogram for malignant neoplasm of breast (principal); Z80.3 Family history of malignant neoplasm of breast
CPT/HCPCS: 77063; 77067

== ENCOUNTER → 2021-06-23 13:45 | Outpatient (ROUT) | payer MEDICARE, SELFPAY ==
[2021-06-23 13:53] LABS: INR 3.1 (0.9-1.3); Prothrombin Time 35.3 SECONDS (10.1-12.7)
== END ==
PROVIDERS: PCP Internal Medicine; Visit Provider Internal Medicine
DX: I48.91 Unspecified atrial fibrillation (principal); D68.69 Other thrombophilia
CPT/HCPCS: 85610

== ENCOUNTER 2022-08-20 10:09 | Inpatient (IN) | payer MEDICARE, SELFPAY ==
[2022-08-20] VITALS (23 sets, daily range): BP systolic 97–164; BP diastolic 61–96; PULSE 78–114; RESP 16–24; TEMP 36.4–36.8; O2SAT 92–98; BMI 26.9
--- NOTE | 2022-08-20 10:18 | DI.RAD.S_ITS ---
PROCEDURE: XR ANKLE LT 2V INDICATIONS: fall, deformity ankle TECHNIQUE: 2 views of the ankle were acquired. COMPARISON: None. FINDINGS: Bones: There is a comminuted fracture with mild displacement of the distal fibula. Mildly displaced medial malleolar fracture is present. Soft tissues: Ankle edema is present. Achilles tendon appears normal. IMPRESSION: Comminuted distal fibular fracture as well as mildly displaced medial malleolar fracture. Dictated by: Jil Veliz M.D. on 08/20/2022 at 11:22 Approved by: Jil Veliz M.D. on 08/20/2022 at 11:24
--- NOTE | 2022-08-20 10:18 | DI.RAD.S_ITS ---
PROCEDURE: XR ELBOW RT MIN 3V INDICATIONS: fall, deformity ankle TECHNIQUE: 3 views of the elbow were acquired. COMPARISON: None. FINDINGS: Bones: There is a comminuted fracture of the proximal ulna at the olecranon. There is a displaced fracture fragment. Soft tissues: [id number] elbow joint effusion. No suspicious soft tissue calcifications. IMPRESSION: [id number] effusion with comminuted mildly displaced olecranon fracture. Dictated by: Jil Veliz M.D. on 08/20/2022 at 11:24 Approved by: Jil Veliz M.D. on 08/20/2022 at 11:25
--- NOTE | 2022-08-20 10:19 | DI.CT.S_ITS ---
PROCEDURE: CT HEAD/BRAIN WO CON INDICATIONS: Trauma TECHNIQUE: Noncontrast 4.5 mm thick angled axial sections acquired from the foramen magnum to the vertex, with coronal and sagittal reformats. For radiation dose reduction, the following was used: automated exposure control, adjustment of mA and/or kV according to patient size. COMPARISON: None. FINDINGS: Image quality: Excellent. CSF spaces: Basal cisterns are patent. No extra-axial fluid collections. Ventricles are normal in size and shape. Brain: No midline shift. No intracranial masses or hemorrhage. [place]-white matter interface is normal. Skull and face: Calvarium and visualized facial bones are intact, without suspicious lesions. Sinuses: Visualized sinuses and mastoids are clear. IMPRESSION: No evidence acute intracranial abnormality. Dictated by: Rito Ruiz M.D. on 08/20/2022 at 10:40 Approved by: Rito Ruiz M.D. on 08/20/2022 at 10:41
--- NOTE | 2022-08-20 10:19 | DI.RAD.S_ITS ---
PROCEDURE: XR CHEST 1V INDICATIONS: fall, deformity ankle TECHNIQUE: One view of the chest was acquired. COMPARISON: [facility], CR, XR CHEST 2V, 05/08/2019, 11:21. [facility], CR, XR CHEST 2V, 09/05/2018, 12:02. FINDINGS: Surgical changes and devices: None. Lungs and pleura: Elevation of the right hemidiaphragm as before. No definite suspicious focal airspace opacity. Mediastinum: Cardiac silhouette is at the upper limit of normal in size. Mediastinal and hilar contours appear similar to before. Bones and chest wall: No suspicious bony lesions. Overlying soft tissues appear unremarkable. IMPRESSION: No acute cardiopulmonary abnormality. Dictated by: Fercho Medina M.D. on 08/20/2022 at 10:55 Approved by: Fercho Medina M.D. on 08/20/2022 at 10:58
--- NOTE | 2022-08-20 10:19 | DI.CT.S_ITS ---
PROCEDURE: CT CERVICAL SPINE WO CON INDICATIONS: Trauma TECHNIQUE: Noncontrast 3 mm thick sections acquired from the skull base to the T4 level. Sagittal and coronal reformats were then constructed. For radiation dose reduction, the following was used: automated exposure control, adjustment of mA and/or kV according to patient size. COMPARISON: None. FINDINGS: Image quality: Excellent. Bones: No fractures or dislocations. Visualized superior ribs are intact. Cervical spondylosis. Findings include ossification of the posterior longitudinal ligament, which results in canal stenosis, most notably at C4-C5. Soft tissues: Prevertebral soft tissues are normal in thickness. No paravertebral hematomas. No apical pneumothoraces. IMPRESSION: 1. No evidence of acute cervical fracture or dislocation. 2. 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 Dictated by: Rito Ruiz M.D. on 08/20/2022 at 10:41 Approved by: Rito Ruiz M.D. on 08/20/2022 at 10:43
--- NOTE | 2022-08-20 10:20 | ED_ITS ---
HPI - Trauma General Chief Complaint: Fall Stated Complaint: Fall Time Seen by Provider: 08/20/22 10:18 Source: patient, family, EMS and old records reviewed Mode of arrival: EMS Limitations: no limitations History of Present Illness HPI narrative: This is an 81-year-old female who presents after having a fall. Reported that she was walking her dog tripped and fell. Patient does not actually recall the episode she is able to tell me it is actually a family member's dog. Patient does not recall what happened she does not have obvious head trauma but complaint of pain in her neck, right elbow and left ankle. Patient denies headache currently. No vision changes. She is little bit repetitive. She denies chest pain or shortness of breath. No nausea or vomiting. No loss of bowel or bladder control. She denies any hip or pelvic pain. Patient can tell me she takes aspirin, atorvastatin, lisinopril and states she is on some other medications but can not recall these. She currently denies any major surgeries her chart notes prior coronary angioplasty. She denies any known drug allergies. Denies tobacco, alcohol or illicit. She has family that has been living with her the past week but is out of town currently but have been contacted and are returning. Medics state she is been repetitive her mentation has been improving but she does not recall even talking to her family on the phone when they initially called them with the medics. Related Data Home Medications Medication Instructions Recorded Confirmed atorvastatin 20 mg tablet (Lipitor) 20 mg PO DAILY ##0 08/22/17 01/19/21 allopurinol 100 mg tablet 200 mg PO DAILY 05/08/19 01/19/21 aspirin 325 mg tablet 325 mg PO DAILY 05/08/19 01/19/21 codeine 10 mg-guaifenesin 100 mg/5 5 ml PO Q4-6H PRN Cough 05/08/19 01/19/21 mL oral liquid (Guaifenesin AC) gabapentin 300 mg capsule 300 mg PO TID 05/08/19 01/19/21 insulin NPH isoph U-100 human 100 10 unit SUBCUT BID 05/08/19 01/19/21 unit/mL subcutaneous suspension (Novolin N NPH U-100 Insulin isophane) lidocaine HCl 2 % topical cream 1 applic topical TID PRN pain 05/08/19 01/19/21 metformin 1,000 mg tablet 1,000 mg PO BID 05/08/19 01/19/21 valacyclovir 1 gram tablet 2,000 mg PO BID 05/08/19 01/19/21 (Valtrex) lisinopril 40 mg tablet 20 mg PO DAILY 01/19/21 01/19/21 warfarin 5 mg tablet 5 mg PO DAILY 01/19/21 01/19/21 Previous Rx's Medication Instructions Recorded diltiazem HCl 240 mg 240 mg PO DAILY #20 caps 05/08/19 capsule,extended release 24 hr (Cardizem CD) furosemide 20 mg tablet (Lasix) 20 mg PO QAM #7 tabs 05/08/19 Allergies Allergy/AdvReac Type Severity Reaction Status Date / Time No Known Drug Allergies Allergy Verified 08/20/22 10:28 Review of Systems Review of Systems ROS Unobtainable: All systems reviewed & are unremarkable except as noted in HPI and below Patient History Medical History CAD (coronary artery disease) HTN (hypertension) Paroxysmal atrial fibrillation Type 2 diabetes mellitus Surgical History H/O coronary angioplasty Family History Father CAD (coronary artery disease) Mother Cancer Social History household members: family Smoking Status: Never smoker alcohol intake: current Smoking Status: Never smoker alcohol intake frequency: other Substance Use Type: does not use Exam Narrative Exam Narrative: GEN: C-collar prior to arrival. Patient appears in mild distress. HEAD: No evidence of trauma, no raccoon/Wallace sign. NECK: Nontender, painless range of motion, trachea midline [Negative/positive] Nexus criteria, there is mild in lead line tenderness, distracting injury, positive for altered mental status,no neuro deficit, recent EtOH. EYES: PERRLA, EOMI ENT: External inspection normal, trachea is midline, TM's are normal no hemotypanum, Nares are clear, no septal hematoma, no dental or oral injury, airway is normal and with normal occlusion, No bony tenderness RESP: Chest is nontender and has symmetric movement, no ecchymosis, breath sounds are normal no crackles, wheezes or rales CVS: Heart sounds are normal, no murmur noted, No JVD. ABG/GI: Nontender, soft, normal bowel sounds, no distention, no organomegaly, pelvic rock is negative NEURO: Oriented AOx3, neuro is grossly intact, sensation and motor is normal all 4 extremities moving, cranial nerves II through XII are intact, GCS is 14 PSYCH: Normal mood and affect SKIN: Intact, warm and dry, no crepitus and without decubitus BACK: No CVA tenderness, no vertebral tenderness, no step-off's, no crepitus EXT:Patient has obvious hematoma in the right elbow she has tenderness over the elbow itself but does move it, patient also has some deformity of the left ankle. She is neurovascularly intact with sensation in bilateral upper and lower extremities. Patient has palpable pulses bilateral upper and lower extremities. Hips are nontender, no pedal edema, normal color and temperature, normal range of motion of extremities with normal tendon exam and patient's others extremities. Initial Vital Signs Initial Vital Signs: Vital Signs Pulse Rate 82 08/20/22 10:21 Respiratory Rate 16 08/20/22 10:21 Blood Pressure 163/82 H 08/20/22 10:21 Pulse Oximetry 97 08/20/22 10:21 Oxygen Delivery Method Room Air 08/20/22 10:[address] Head Rule Patient on blood thinners: Yes GCS < 15 at 2 hr post trauma: Yes Age greater or equal to 65 years: Yes GCS Angela coma scale eye opening: Spontaneous Angela coma scale verbal response: Orientated Angela coma scale motor response: Obey commands [place] coma scale total score: 15 Nexus Score for C-Spine Focal Neurologic deficit present: No Midline spinal tenderness present: No Altered level of conciousness present: Yes Intoxication present: No Distracting Injury Present: No Nexus Criteria for C-spine: 1 Course Orders Ordered: ED Orders 08/20/22 16:52 EKG-12 Lead Stat 08/21/22 05:00 Complete Blood Count AUTO DIFF DAILY Comprehensive Metabolic Panel DAILY Magnesium DAILY Prothrombin Time INR DAILY 08/22/22 05:00 Complete Blood Count AUTO DIFF DAILY Comprehensive Metabolic Panel DAILY Magnesium DAILY Prothrombin Time INR DAILY 08/23/22 05:00 Complete Blood Count AUTO DIFF DAILY Comprehensive Metabolic Panel DAILY Magnesium DAILY Prothrombin Time INR DAILY Acetaminophen (Acetaminophen 325 Mg Tablet) 650 mg PO Q6H PRN PRN Reason: Fever/Mild Pain (1-3) Dextrose (Dextrose 50 % In Water 25 Gm/50 Ml Syringe) 25 gm IV PRN PRN PRN Reason: Hypoglycemia Diltiazem HCl (Diltiazem Cd 240 Mg Cap) 240 mg PO DAILY NATASHA Hydromorphone HCl (Hydromorphone 0.5 Mg Inj) 0.5 mg IV Q2H PRN PRN Reason: Pain, Severe (7-10) Insulin Glargine (Insulin Glargine 100 Unit/Ml 3ml Pen) 10 unit SUBCUT 2100 NATASHA Insulin Human Lispro (Insulin Lispro 100 Unit/Ml 3ml Vial) 0 unit SUBCUT ACHS NATASHA; Protocol Methocarbamol (Methocarbamol 500 Mg Tablet) 750 mg PO QID PRN PRN Reason: Muscle Spasm Last Admin: 08/20/22 19:04 Dose: 750 mg Documented By: MM Naloxone HCl (Naloxone 0.4 Mg/Ml Vial) 0.2 mg IV Q2MIN PRN PRN Reason: Opiate Reversal Ondansetron HCl (Ondansetron 4 Mg/2 Ml Inj) 4 mg IV Q4HR PRN PRN Reason: Nausea And Vomiting Oxycodone HCl (Oxycodone Ir 5 Mg Tablet) 5 mg PO Q3H PRN PRN Reason: Pain, Moderate (4-6) Last Admin: 08/20/22 19:03 Dose: 5 mg Documented By: MARCELLA Discontinued Medications Dextrose (Dextrose 50 % In Water 25 Gm/50 Ml Syringe) 25 gm IV PRN PRN; Protocol PRN Reason: Hypoglycemia Diltiazem HCl (Diltiazem Cd 240 Mg Cap) 240 mg PO NOW ONE Stop: 08/20/22 16:54 Last Admin: 08/20/22 17:39 Dose: 240 mg Documented By: RB Diphtheria/Tetanus/Acell Pertussis (Tet,Diph,Pertuss(Acell),Vac/Pf 0.5 Ml Syringe) 0.5 ml IM .ONCE ONE Stop: 08/20/22 10:19 Last Admin: 08/20/22 11:05 Dose: 0.5 ml Documented By: JALYN Sodium Chloride (Normal Saline 0.9%) 1,000 mls @ 500 mls/hr IV BOLUS ONE Stop: 08/20/22 18:53 Last Admin: 08/20/22 17:52 Dose: 500 mls/hr Documented By: RB Insulin Human Lispro (Insulin Lispro 100 Unit/Ml 3ml Vial) 5 unit SUBCUT NOW ONE Stop: 08/20/22 16:56 Last Admin: 08/20/22 18:55 Dose: Not Given Documented By: MM Morphine Sulfate (Morphine 4 Mg/Ml Inj) 4 mg IV NOW ONE Stop: 08/20/22 11:01 Last Admin: 08/20/22 11:05 Dose: 4 mg Documented By: JALYN Morphine Sulfate (Morphine 4 Mg/Ml Inj) 4 mg IV NOW ONE Stop: 08/20/22 13:08 Last Admin: 08/20/22 13:12 Dose: 4 mg Documented By: JALYN Ondansetron HCl (Ondansetron 4 Mg/2 Ml Inj) 4 mg IV Q6HR PRN PRN Reason: Nausea And Vomiting Last Admin: 08/20/22 11:05 Dose: 4 mg Documented By: JALYN Phytonadione (Phytonadione (Vit K1) 5 Mg Tablet) 10 mg PO NOW ONE Stop: 08/20/22 16:54 Last Admin: 08/20/22 17:40 Dose: 10 mg Documented By: SANDRA Vital Signs Vital signs: Vital Signs - 8 hr 08/20/22 12:30 08/20/22 12:30 08/20/22 12:41 Pulse Rate 80 81 Respiratory Rate Blood Pressure 161/78 H Pulse Oximetry 94 92 08/20/22 12:41 08/20/22 13:00 08/20/22 13:00 Pulse Rate 83 Respiratory Rate Blood Pressure 136/77 142/80 H Pulse Oximetry 92 08/20/22 13:30 08/20/22 13:30 08/20/22 14:00 Pulse Rate 99 H Respiratory Rate Blood Pressure 131/77 138/69 Pulse Oximetry 93 08/20/22 14:00 08/20/22 14:30 08/20/22 14:30 Pulse Rate 93 H 109 H Respiratory Rate Blood Pressure 121/64 Pulse Oximetry 92 94 08/20/22 15:00 08/20/22 15:01 08/20/22 15:01 Pulse Rate 99 H 106 H Respiratory Rate Blood Pressure 97/61 Pulse Oximetry 92 93 08/20/22 15:30 08/20/22 15:30 08/20/22 16:00 Pulse Rate 112 H Respiratory Rate Blood Pressure 107/72 129/70 Pulse Oximetry 94 08/20/22 16:00 08/20/22 16:30 08/20/22 16:30 Pulse Rate 103 H 108 H Respiratory Rate Blood Pressure 124/70 Pulse Oximetry 92 93 08/20/22 17:00 08/20/22 17:00 Pulse Rate 114 H Respiratory Rate 22 Blood Pressure 139/84 Pulse Oximetry 93 MDM - Trauma Lab Data 08/20/22 10:32 08/20/22 10:32 Labs: Lab Results 08/20/22 08/20/22 08/20/22 Range/Units 10:32 10:32 10:32 WBC 10.9 (4.5-11.0) X10^3/uL RBC 4.86 (4.0-5.2) X10^6/uL Hgb 15.0 (12.0-16.0) g/dL Hct 46.4 H (36-46) % MCV 95.4 (80-100) fL MCH 30.8 (26-34) PG MCHC 32.2 (30-36) % RDW 14.8 (11.6-14.8) % Plt Count 246 (150-400) X10^3/uL Neut % (Auto) 63.7 (50-75) % Lymph % (Auto) 29.4 (25-40) % [place] % (Auto) 5.5 (3-14) % Eos % (Auto) 1.2 L (2-4) % Baso % (Auto) 0.2 (0-2) % Neut # (Auto) 6900 (2606-9032) /uL Lymph # (Auto) 3200 (6900-0919) /uL [place] # (Auto) 600 (0-900) /uL Eos # (Auto) 100 (0-450) /uL Baso # (Auto) 0 (0-100) /uL PT 25.4 H (10.1-12.7) SECONDS INR 2.2 H (0.9-1.3) APTT 34 (26-36) SECONDS Sodium (137-145) mmol/L Potassium (3.4-5.1) mmol/L Chloride (98-107) mmol/L Carbon Dioxide (22-32) mmol/L BUN (7-17) mg/dL Creatinine (0.52-1.04) mg/dL Estimated GFR (>60) mL/min BUN/Creatinine Ratio (6-22) Glucose (80-110) mg/dL Lactate (0.7-2.1) mmol/L Calcium (8.4-10.2) mg/dL Total Bilirubin (0.2-1.3) mg/dL AST (14-36) IU/L ALT (<35) IU/L Alkaline Phosphatase (38-126) U/L Total Creatine Kinase 109 (30-135) U/L CK-MB (CK-2) 1.45 (<2.37) ng/mL CK-MB (CK-2) Rel Index 1.3 L (1.5-5.0) % Troponin I < 0.012 (0.01-0.034) ng/mL Total Protein (6.3-8.2) g/dL Albumin (3.5-5.0) g/dL Globulin (1.7-4.1) g/dL Albumin/Globulin Ratio (1.0-2.8) Lipase (23-300) U/L Ethyl Alcohol ( - 10) mg/dL 08/20/22 08/20/22 08/20/22 Range/Units 10:32 10:32 12:45 WBC (4.5-11.0) X10^3/uL RBC (4.0-5.2) X10^6/uL Hgb (12.0-16.0) g/dL Hct (36-46) % MCV (80-100) fL MCH (26-34) PG MCHC (30-36) % RDW (11.6-14.8) % Plt Count (150-400) X10^3/uL Neut % (Auto) (50-75) % Lymph % (Auto) (25-40) % [place] % (Auto) (3-14) % Eos % (Auto) (2-4) % Baso % (Auto) (0-2) % Neut # (Auto) (7712-1534) /uL Lymph # (Auto) (4832-3350) /uL [place] # (Auto) (0-900) /uL Eos # (Auto) (0-450) /uL Baso # (Auto) (0-100) /uL PT (10.1-12.7) SECONDS INR (0.9-1.3) APTT (26-36) SECONDS Sodium 137 (137-145) mmol/L Potassium 3.8 (3.4-5.1) mmol/L Chloride 100 (98-107) mmol/L Carbon Dioxide 28 (22-32) mmol/L BUN 18 H (7-17) mg/dL Creatinine 0.93 (0.52-1.04) mg/dL Estimated GFR > 60 (>60) mL/min BUN/Creatinine Ratio 19.4 (6-22) Glucose 296 H (80-110) mg/dL Lactate 2.5 H 1.6 (0.7-2.1) mmol/L Calcium 8.7 (8.4-10.2) mg/dL Total Bilirubin 1.3 (0.2-1.3) mg/dL AST 32 (14-36) IU/L ALT 27 (<35) IU/L Alkaline Phosphatase 121 (38-126) U/L Total Creatine Kinase (30-135) U/L CK-MB (CK-2) (<2.37) ng/mL CK-MB (CK-2) Rel Index (1.5-5.0) % Troponin I (0.01-0.034) ng/mL Total Protein 6.9 (6.3-8.2) g/dL Albumin 4.1 (3.5-5.0) g/dL Globulin 2.8 (1.7-4.1) g/dL Albumin/Globulin Ratio 1.5 (1.0-2.8) Lipase 213 (23-300) U/L Ethyl Alcohol < 10 ( - 10) mg/dL Point of Care Testing Glucose POC [address] scan - head: Radiologist's Impression: [address] [address] [address] Scan Report Signed Patient: Sue Zhang MR#: [id number] : 1940 Acct:[id number] Age/Sex: 81 / F Date of Service: 08/20/22 Loc: ED Accession Number: [id number] ?? Procedure: CT head/brain wo con Ordering Provider: Ayde Diallo D.O. PROCEDURE:? CT HEAD/BRAIN WO CON ? INDICATIONS:? Trauma ? TECHNIQUE:? Noncontrast 4.5 mm thick angled axial sections acquired from the foramen magnum to the vertex, with coronal and sagittal reformats.? For radiation dose reduction, the following was used:? automated exposure control, adjustment of mA and/or kV according to patient size.? ? COMPARISON:? None. ? FINDINGS:? Image quality:? Excellent.? ? CSF spaces:? Basal cisterns are patent.? No extra-axial fluid collections.? Ventricles are normal in size and shape.? ? Brain:? No midline shift.? No intracranial masses or hemorrhage.? Marin-white matter interface is normal.? ? Skull and face:? Calvarium and visualized facial bones are intact, without suspicious lesions.? ? Sinuses:? Visualized sinuses and mastoids are clear.? ? IMPRESSION:? No evidence acute intracranial abnormality. ? ? Dictated by: Rito Ruiz M.D. on 08/20/2022 at 10:40 ? ? Approved by: Rito Ruiz M.D. on 08/20/2022 at 10:41?? CT - cervical spine: Radiologist's Impression: [place] [address] CT Scan Report Signed Patient: Sue Zhang MR#: [id number] : 1940 Acct:[id number] Age/Sex: 81 / F Date of Service: 08/20/22 Loc: ED Accession Number: [id number] ?? Procedure: CT head/brain wo con Ordering Provider: Ayde Diallo D.O. PROCEDURE:? CT HEAD/BRAIN WO CON ? INDICATIONS:? Trauma ? TECHNIQUE:? Noncontrast 4.5 mm thick angled axial sections acquired from the foramen magnum to the vertex, with coronal and sagittal reformats.? For radiation dose reduction, the following was used:? automated exposure control, adjustment of mA and/or kV according to patient size.? ? COMPARISON:? None. ? FINDINGS:? Image quality:? Excellent.? ? CSF spaces:? Basal cisterns are patent.? No extra-axial fluid collections.? Ventricles are normal in size and shape.? ? Brain:? No midline shift.? No intracranial masses or hemorrhage.? Marin-white matter interface is normal.? ? Skull and face:? Calvarium and visualized facial bones are intact, without suspicious lesions.? ? Sinuses:? Visualized sinuses and mastoids are clear.? ? IMPRESSION:? No evidence acute intracranial abnormality. ? ? Dictated by: Rito Ruiz M.D. on 08/20/2022 at 10:40 ? ? Approved by: Rito Ruiz M.D. on 08/20/2022 at 10:41?? Chest x-ray: Radiologist's Impression: Close Head CT (Signed) Rito Ruiz - 08/20/22 Chest X-Ray (Signed) Fercho Medina - 08/20/[address] (Signed) Rito Ruiz - 08/20/22 Elbow X-Ray (Signed) Jil Veliz - 08/20/22 Ankle X-Ray (Signed) Jil Veliz - 08/20/22 Mammogram Screening (Signed) Wiliam Burns - 05/17/21 Echocardiogram Ultrasound (Signed) Sayda Rosa - 05/19/19 Chest X-Ray (Signed) Clark Bolaños - 05/08/19 Chest X-Ray (Signed) Woodrow Mujica - 09/05/18 [place] [address] XRay Report Signed Patient: Sue Zhang MR#: [id number] : 1940 Acct:[id number] Age/Sex: 81 / F Date of Service: 08/20/22 Loc: ED Accession Number: [id number] ?? Procedure: XR chest 1V Ordering Provider: Ayde Diallo D.O. PROCEDURE:? XR CHEST 1V ? INDICATIONS:? fall, deformity ankle ? TECHNIQUE:? One view of the chest was acquired.? ? COMPARISON:? [facility], CR, XR CHEST 2V, 05/08/2019, 11:21.? [facility], , XR CHEST 2V, 09/05/2018, 12:02. ? FINDINGS:? ? Surgical changes and devices:? None.? ? Lungs and pleura:? Elevation of the right hemidiaphragm as before.? No definite suspicious focal airspace opacity. ? Mediastinum:? Cardiac silhouette is at the upper limit of normal in size.? Mediastinal and hilar contours appear similar to before. ? Bones and chest wall:? No suspicious bony lesions.? Overlying soft tissues appear unremarkable.? ? IMPRESSION:? No acute cardiopulmonary abnormality. ? ? Dictated by: Fercho Medina M.D. on 08/20/2022 at 10:55 ? ? Approved by: Fercho Medina M.D. on 08/20/2022 at 10:58?? Extremity x-ray #1: Radiologist's Impression: Close Head CT (Signed) Rito Ruiz - 08/20/22 Chest X-Ray (Signed) Fercho Medina - 08/20/[address] (Signed) Rito Ruiz - 08/20/22 Elbow X-Ray (Signed) Jil Veliz - 08/20/22 Ankle X-Ray (Signed) Jil Veliz - 08/20/22 Mammogram Screening (Signed) KatyWiliam - 05/17/21 Echocardiogram Ultrasound (Signed) Sayda Rosa - 05/19/19 Chest X-Ray (Signed) Clark Bolaños - 05/08/19 Chest X-Ray (Signed) Woodrow Mujica - 09/05/18 [place] [address] XRay Report Signed Patient: Sue Zhang MR#: [id number] : 1940 Acct:[id number] Age/Sex: 81 / F Date of Service: 08/20/22 Loc: ED Accession Number: [id number] ?? Procedure: XR elbow RT min 3V Ordering Provider: Ayde Diallo D.O. PROCEDURE:? XR ELBOW RT MIN 3V ? INDICATIONS:? fall, deformity ankle ? TECHNIQUE:? 3 views of the elbow were acquired.? ? COMPARISON:? None. ? FINDINGS:? ? Bones:? There is a comminuted fracture of the proximal ulna at the olecranon.? There is a displaced fracture fragment. ? Soft tissues:? [id number] elbow joint effusion.? No suspicious soft tissue calcifications.? ? ? IMPRESSION:? [id number] effusion with comminuted mildly displaced olecranon fracture. ? ? Dictated by: Jil Veliz M.D. on 08/20/2022 at 11:24 ? ? Approved by: Jil Veliz M.D. on 08/20/2022 at 11:25?? Extremity x-ray #2: Radiologist's Impression: Sue Zhang??81??F??1940 ? Allergy/Adv: No Known Drug Allergies Close Head CT (Signed) [place] - 08/20/22 Chest X-Ray (Signed) Fercho Medina - 08/20/[address] (Signed) Rito Ruiz - 08/20/22 Elbow X-Ray (Signed) Jil Veliz - 08/20/22 Ankle X-Ray (Signed) Jil Veliz - 08/20/22 Mammogram Screening (Signed) Wiliam Burns - 05/17/21 Echocardiogram Ultrasound (Signed) Sayda Rosa - 05/19/19 Chest X-Ray (Signed) Clark Bolaños - 05/08/19 Chest X-Ray (Signed) Woodrow Mujica - 09/05/18 [place] [address] XRay Report Signed Patient: Sue Zhang MR#: [id number] : 1940 Acct:[id number] Age/Sex: 81 / F Date of Service: 08/20/22 Loc: ED Accession Number: [id number] ?? Procedure: XR ankle LT 2V Ordering Provider: Ayde Diallo D.O. PROCEDURE:? XR ANKLE LT 2V ? INDICATIONS:? fall, deformity ankle ? TECHNIQUE: 2 views of the ankle were acquired.? ? COMPARISON:? None. ? FINDINGS:? ? Bones:? There is a comminuted fracture with mild displacement of the distal fibula.? Mildly displaced medial malleolar fracture is present. ? Soft tissues:? Ankle edema is present.? Achilles tendon appears normal.? ? ? IMPRESSION:? Comminuted distal fibular fracture as well as mildly displaced medial malleolar fracture. ? Dictated by: Jil Veliz M.D. on 08/20/2022 at 11:22 ? ? Approved by: Jil Veliz M.D. on 08/20/2022 at 11:24?? MDM Narrative Medical decision making narrative: This is an 81-year-old female who presents with possibly be on stronger thinners but is on aspirin daily according to the patient she is repetitive confused no clear obvious head trauma but appears to have fallen. There is reported witnessed that patient tripped on her dog while walking the. Head CT is negative C-spine is negative this was obtained based on age, confusion and she complained of some mild pain. She is obvious fracture in the elbow and ankle and x-ray, chest x-ray is negative. Patient's labs otherwise are well-appearing and patient mentation has significantly improved here. She is not had any other changes to her workup, exam findings or other changes that make me suspect a different cause of her symptoms today other than trauma causing concussion. Patient case was discussed with Dr. Lewis from Orthopedic surgery regarding her elbow and ankle fracture. She recommends elbow placed in a posterior splint position of comfort greater than 90? proximally 120?, ankle should be placed in a posterior and stirrup splint and can follow up with the office, patient will likely require surgical repair. Patient was placed in splints here. She feels she is likely to be able to be home even though she has a fractured her right arm and left ankle, she does have family locally she lives on the ground floor. Discussed with patient we will see how she is getting around the department once family has arrived. While patient was here developed appears to be atrial flutter with variable AV block rate of 101 QRS 86 QTC 459. Patient has known atrial rhythm. She is anticoagulant warfarin. She did miss her daily medications. Patient case was discussed with Dr. Wing who accepts for inpatient asked that we give her home Cardizem dose, 5 units of Humalog subcutaneous, fluids, vitamin K for reversal. I spoke with Orthopedic surgery, Dr. Higgins and she plans to repair the patient tomorrow patient is NPO after midnight. Discharge Plan Departure Patient Disposition: Admitted As Inpatient Clinical Impression: Concussion, Elbow fracture, right Ankle fracture Qualifiers: Encounter type: initial encounter Fracture type: closed Laterality: left Qualified Code(s): S82.892A - Other fracture of left lower leg, initial encounter for closed fracture Admit Date/Time: 08/20/22 17:17 Admit Provider: Arthur Wing
[2022-08-20 10:35] LABS: Add Manual Diff / Slide Review NO; Basophils Absolute Auto 0 /uL (0-100); Basophils Percent Auto 0.2 % (0-2); Eosinophils Absolute Auto 100 /uL (0-450); Eosinophils Percent Auto 1.2 % (2-4); Hematocrit 46.4 % (36-46); Lymphocytes Absolute Auto 3200 /uL (1100-4500); Lymphocytes Percent Auto 29.4 % (25-40); Mean Corpuscular HGB Conc 32.2 % (30-36); Mean Corpuscular Hemoglobin 30.8 PG (26-34); Mean Corpuscular Volume 95.4 fL (80-100); Monocytes Absolute Auto 600 /uL (0-900); Monocytes Percent Auto 5.5 % (3-14); Neutrophils Absolute Auto 6900 /uL (1500-7000); Neutrophils Percent Auto 63.7 % (50-75); Platelet Count 246 X10^3/uL (150-400); Red Blood Cell Count 4.86 X10^6/uL (4.0-5.2); Red Cell Distribution Width 14.8 % (11.6-14.8); White Blood Cell Count 10.9 X10^3/uL (4.5-11.0)
[2022-08-20 10:38] LABS: INR 2.2 (0.9-1.3); Prothrombin Time 25.4 SECONDS (10.1-12.7)
[2022-08-20 10:40] LABS: PTT Partial Thromboplastin Tim 34 SECONDS (26-36)
[2022-08-20 10:42] LABS: Creatine Kinase 109 U/L (30-135); Lactate (Lactic Acid) 2.5 mmol/L (0.7-2.1)
[2022-08-20 10:44] LABS: Alanine Aminotransferase 27 IU/L (<35); Albumin 4.1 g/dL (3.5-5.0); Albumin Globulin Ratio 1.5 (1.0-2.8); Alkaline Phosphatase 121 U/L (38-126); Aspartate Aminotransferase 32 IU/L (14-36); BUN Creatinine Ratio 19.4 (6-22); Bilirubin Total 1.3 mg/dL (0.2-1.3); Blood Urea Nitrogen 18 mg/dL (7-17); Calcium 8.7 mg/dL (8.4-10.2); Carbon Dioxide 28 mmol/L (22-32); Chloride 100 mmol/L (98-107); Estimated Glomerular Filt Rate > 60 mL/min (>60); Ethanol (ETOH) < 10 mg/dL; Globulin 2.8 g/dL (1.7-4.1); Glucose 296 mg/dL (80-110); HEMOLYSIS < 15 (0-50); Lipase 213 U/L (23-300); Potassium 3.8 mmol/L (3.4-5.1); Sodium 137 mmol/L (137-145); Total Protein 6.9 g/dL (6.3-8.2)
[2022-08-20 10:55] LABS: Troponin I < 0.012 ng/mL (0.01-0.034)
[2022-08-20 10:58] LABS: CKMB % Relative Index 1.3 % (1.5-5.0); Creatine Kinase MB 1.45 ng/mL (<2.37)
[2022-08-20] MEDS: TET,DIPH,PERTUSS(ACELL),VAC/PF 0.5 ML SYRINGE IM (11:05)
[2022-08-20] MEDS: ONDANSETRON 4 MG/2 ML INJ IV ×2 (11:05→22:59)
[2022-08-20] MEDS: MORPHINE 4 MG/ML INJ IV ×2 (11:05→13:12)
--- NOTE | 2022-08-20 11:12 | PC.NURSE ---
C collar removed per verbal order from Dr Diallo. Pt medicated for pain. Pt's friends are at bedside. Daughter enroute to hospital
[2022-08-20 12:32] LABS: Reflexed Lactate in 2 Hours Y
[2022-08-20 13:15] LABS: Lactate 2HR (Lactic Acid Rflx) 1.6 mmol/L (0.7-2.1)
[2022-08-20] MEDS: dilTIAZem CD 240 MG CAP PO (17:39)
[2022-08-20] MEDS: PHYTONADIONE (VIT K1) 5 MG TABLET 10 MG PO (17:40)
[2022-08-20 17:51] LABS: COVID19 -Nasal RAPID Negative (Negative)
[2022-08-20] MEDS: SODIUM CHLORIDE 0.9% 1,000 ML 500 ML IV (17:52)
--- NOTE | 2022-08-20 18:16 | PM.HP.1 ---
History of Present Illness History of Present Illness Date Patient Seen: 08/20/22 Time Patient Seen: 18:16 Chief complaint: fall, Narrative: This is an 81 year old fmeale with PMH of CAD, HTN, pafib, DM2 on insulin, prior CVA who presents after a mechanical fall. She does not recall the fall itself. Family at bedside report speaking to witness, who said that two larger dogs came up to her and encircles around her when she fell. It is still unclear if she hit her head. Patient currently feels sore all over, including all extremities and R chest wall. She denies recent chest pain, shortness of breath, dyspnea on exertion, palpitations, lower extremity edema. Family does report she has been sharp all week since they have been staying with her, but today in the ER she is a bit confused and slow. In the emergency room, the patient was initially hypertensive but improved with pain control. She initially appeared to be in sinus rhythm, but did develop atrial flutter with RVR. She was given her home dose of diltiazem which she probably missed this morning. A right olecranon fracture, as well as a left tibia and fibula fracture. Orthopedic surgery was consulted and plans to fix at least 1 of her extremities tomorrow. EKG showed atrial flutter without evidence of acute ischemia. She did have a CT of her head which showed no bleeding. Laboratory evaluation was unremarkable except for her INR of 2.2, as well as a glucose of 296. Troponin was negative. Patient History Medical History CAD (coronary artery disease) HTN (hypertension) Paroxysmal atrial fibrillation Type 2 diabetes mellitus Surgical History H/O coronary angioplasty Family & Social History Family History Father CAD (coronary artery disease) Mother Cancer Safety & Behavioral: Feels Safe in Current Yes Environment Been Physically Hurt or No Threatened By a Person Tobacco & Substance use: Smoking Status Never smoker alcohol intake frequency other Substance Use Type does not use Meds Home Medications and Allergies Home Medications Medication Instructions Recorded Confirmed Type atorvastatin 20 mg tablet (Lipitor) 20 mg PO DAILY ##0 08/22/17 01/19/21 History allopurinol 100 mg tablet 200 mg PO DAILY 05/08/19 01/19/21 History aspirin 325 mg tablet 325 mg PO DAILY 05/08/19 01/19/21 History codeine 10 mg-guaifenesin 100 mg/5 5 ml PO Q4-6H PRN Cough 05/08/19 01/19/21 History mL oral liquid (Guaifenesin AC) diltiazem HCl 240 mg 240 mg PO DAILY #20 caps 05/08/19 01/19/21 Rx capsule,extended release 24 hr (Cardizem CD) furosemide 20 mg tablet (Lasix) 20 mg PO QAM #7 tabs 05/08/19 01/19/21 Rx gabapentin 300 mg capsule 300 mg PO TID 05/08/19 01/19/21 History insulin NPH isoph U-100 human 100 10 unit SUBCUT BID 05/08/19 01/19/21 History unit/mL subcutaneous suspension (Novolin N NPH U-100 Insulin isophane) lidocaine HCl 2 % topical cream 1 applic topical TID PRN pain 05/08/19 01/19/21 History metformin 1,000 mg tablet 1,000 mg PO BID 05/08/19 01/19/21 History valacyclovir 1 gram tablet 2,000 mg PO BID 05/08/19 01/19/21 History (Valtrex) lisinopril 40 mg tablet 20 mg PO DAILY 01/19/21 01/19/21 History warfarin 5 mg tablet 5 mg PO DAILY 01/19/21 01/19/21 History Allergies Allergy/AdvReac Type Severity Reaction Status Date / Time No Known Drug Allergies Allergy Verified 08/20/22 10:28 Review of Systems Review of Systems Narrative: All other systems reviewed with the patient and are negative unless otherwise stated. Exam Vital Signs (past 8 hours): - 08/20/22 10:24 08/20/22 10:21 08/20/22 10:21 Temperature 98.2 F Pulse Rate 82 Respiratory Rate 16 Blood Pressure 163/82 H Pulse Oximetry 97 Oxygen Delivery Method Room Air 08/20/22 10:50 08/20/22 10:52 08/20/22 10:52 Temperature Pulse Rate 81 82 Respiratory Rate Blood Pressure 164/96 H Pulse Oximetry 96 Oxygen Delivery Method Room Air 08/20/22 11:00 08/20/22 11:00 08/20/22 11:30 Temperature Pulse Rate 86 Respiratory Rate Blood Pressure 161/79 H 137/79 Pulse Oximetry 98 Oxygen Delivery Method 08/20/22 11:30 08/20/22 12:00 08/20/22 12:00 Temperature Pulse Rate 78 80 Respiratory Rate Blood Pressure 148/74 H Pulse Oximetry 92 93 Oxygen Delivery Method Room Air 08/20/22 12:30 08/20/22 12:30 08/20/22 12:41 Temperature Pulse Rate 80 81 Respiratory Rate Blood Pressure 161/78 H Pulse Oximetry 94 92 Oxygen Delivery Method 08/20/22 12:41 08/20/22 13:00 08/20/22 13:00 Temperature Pulse Rate 83 Respiratory Rate Blood Pressure 136/77 142/80 H Pulse Oximetry 92 Oxygen Delivery Method 08/20/22 13:30 08/20/22 13:30 08/20/22 14:00 Temperature Pulse Rate 99 H Respiratory Rate Blood Pressure 131/77 138/69 Pulse Oximetry 93 Oxygen Delivery Method 08/20/22 14:00 08/20/22 14:30 08/20/22 14:30 Temperature Pulse Rate 93 H 109 H Respiratory Rate Blood Pressure 121/64 Pulse Oximetry 92 94 Oxygen Delivery Method 08/20/22 15:00 08/20/22 15:01 08/20/22 15:01 Temperature Pulse Rate 99 H 106 H Respiratory Rate Blood Pressure 97/61 Pulse Oximetry 92 93 Oxygen Delivery Method 08/20/22 15:30 08/20/22 15:30 08/20/22 16:00 Temperature Pulse Rate 112 H Respiratory Rate Blood Pressure 107/72 129/70 Pulse Oximetry 94 Oxygen Delivery Method 08/20/22 16:00 08/20/22 16:30 08/20/22 16:30 Temperature Pulse Rate 103 H 108 H Respiratory Rate Blood Pressure 124/70 Pulse Oximetry 92 93 Oxygen Delivery Method 08/20/22 17:00 08/20/22 17:00 08/20/22 17:30 Temperature Pulse Rate 114 H Respiratory Rate 22 Blood Pressure 139/84 127/76 Pulse Oximetry 93 Oxygen Delivery Method 08/20/22 17:30 08/20/22 18:00 Temperature Pulse Rate 107 H 108 H Respiratory Rate 24 Blood Pressure Pulse Oximetry 93 95 Oxygen Delivery Method Oxygen Delivery Method Room Air Narrative Exam Narrative: General:? Patient is well developed and well nourished, in no distress at this time. HEENT:? Normocephalic, atraumatic, extraocular muscles intact, oral pharynx is clear and mucous membranes are moist. Neck: supple and symmetric, trachea is midline, no cervical adenopathy. Negative for JVD Chest:? Normal AP diameter and contour without kyphoscoliosis, no tachypnea, equal chest rise bilaterally. Lungs:? CTA b/l no wheezing rhonchi or rales. Cardio:?RRR no m/r/g. Abdomen: S NT ND. No CVA tenderness. Musculoskeletal:? Muscle strength and tone are equal within normal limits, no deformity. Extremities: No edema or joint effusions. No cyanosis or clubbing. Skin:? Pale,? Warm to touch,dry and intact without rashes, ulcerations or petechiae.? Neuro:? Alert and orientated x3, though slightly slowed by family. sensation to touch intact in all extremities, no gross deficits noted of cranial nerves. Psych:? Patient has a well-kept appearance, flat affect, mental status attitude thought context and judgment are appropriate for age. Objective Labs 08/20/22 10:32 08/20/22 10:32 Labs: Laboratory Results - last 24 hr 08/20/22 08/20/22 08/20/22 10:32 10:32 10:32 WBC 10.9 RBC 4.86 Hgb 15.0 Hct 46.4 H MCV 95.4 MCH 30.8 MCHC 32.2 RDW 14.8 Plt Count 246 Neut % (Auto) 63.7 Lymph % (Auto) 29.4 [place] % (Auto) 5.5 Eos % (Auto) 1.2 L Baso % (Auto) 0.2 Neut # (Auto) 6900 Lymph # (Auto) 3200 [place] # (Auto) 600 Eos # (Auto) 100 Baso # (Auto) 0 PT 25.4 H INR 2.2 H APTT 34 Sodium Potassium Chloride Carbon Dioxide BUN Creatinine Estimated GFR BUN/Creatinine Ratio Glucose Lactate Calcium Total Bilirubin AST ALT Alkaline Phosphatase Total Creatine Kinase 109 CK-MB (CK-2) 1.45 CK-MB (CK-2) Rel Index 1.3 L Troponin I < 0.012 Total Protein Albumin Globulin Albumin/Globulin Ratio Lipase Ethyl Alcohol SARS-CoV-2 (PCR) 08/20/22 08/20/22 08/20/22 10:32 10:32 12:45 WBC RBC Hgb Hct MCV MCH MCHC RDW Plt Count Neut % (Auto) Lymph % (Auto) [place] % (Auto) Eos % (Auto) Baso % (Auto) Neut # (Auto) Lymph # (Auto) [place] # (Auto) Eos # (Auto) Baso # (Auto) PT INR APTT Sodium 137 Potassium 3.8 Chloride 100 Carbon Dioxide 28 BUN 18 H Creatinine 0.93 Estimated GFR > 60 BUN/Creatinine Ratio 19.4 Glucose 296 H Lactate 2.5 H 1.6 Calcium 8.7 Total Bilirubin 1.3 AST 32 ALT 27 Alkaline Phosphatase 121 Total Creatine Kinase CK-MB (CK-2) CK-MB (CK-2) Rel Index Troponin I Total Protein 6.9 Albumin 4.1 Globulin 2.8 Albumin/Globulin Ratio 1.5 Lipase 213 Ethyl Alcohol < 10 SARS-CoV-2 (PCR) 08/20/22 17:33 WBC RBC Hgb Hct MCV MCH MCHC RDW Plt Count Neut % (Auto) Lymph % (Auto) [place] % (Auto) Eos % (Auto) Baso % (Auto) Neut # (Auto) Lymph # (Auto) [place] # (Auto) Eos # (Auto) Baso # (Auto) PT INR APTT Sodium Potassium Chloride Carbon Dioxide BUN Creatinine Estimated GFR BUN/Creatinine Ratio Glucose Lactate Calcium Total Bilirubin AST ALT Alkaline Phosphatase Total Creatine Kinase CK-MB (CK-2) CK-MB (CK-2) Rel Index Troponin I Total Protein Albumin Globulin Albumin/Globulin Ratio Lipase Ethyl Alcohol SARS-CoV-2 (PCR) Negative Assessment & Plan Assessment & Plan narrative: 1. Left tib / fib fractures, and R olecranon fracture, present on admission - management per orthopedic surgery, per ER discussion NPO @ [place] for probable OR tomorrow. - will check INR in AM, given 10 mg Vit K in ER, may need FFP a few hours prior to OR. Will need to coordinate with OR timing. - orthopedic surgery to see formally in AM. - continue pain management with oral and IV medications as needed 2. Paroxysmal atrial fibrllation / flutter - developed aflutter in the ER with mild tachycardia, improved with home medications - continue tele - continue home diltiazem - given no recent symptoms, no need for further evaluation prior to OR - EKG aflutter without obvious ishcemia, no chest pain, and negative troponin 3. h/o CAD - continue home medication 4. DM2 - patient takes N insulin 15 U BID, start lantus 10, medium sliding scale for now and adjust as needed. 5. HTN, HLD, chronic - continue home medications 6. Suspect Concussion - CT head unremarkable, no focal findings of stroke - consider MRI depending on improvement but highly suspect concussion. Code: full surrogate is patient's daughter dispo: admit as inpatient, probable snf DVT: hold warfarin prior to OR, will resume after I have utilized all available immediate resources to obtain, update, or review the patient's current medications. Discussed with orthopedic provider liquefaction and regasification helper, ER provider, and addtional history obtained from patient's family at bedside. COVID-19 COVID-19 status: Negative Time Spent With Patient Critical Care time: I spent a total of [] minutes of critical care time on this patient's care today; this time is exclusive of procedural time.
--- NOTE | 2022-08-20 18:44 | PC.NURSE ---
Day shift Admission Note: Pt arrived to unit on stretcher from ED @ 1820. Tolerated transfer with slider board well. C/o pain to LLE and RUE d/t fxs. Both extremities splinted and STEVE wrapped by ED RN. Yellow gown, new wrist band, and sock to R foot applied. In the process of changing, we had to cut pt's pants off d/t tighness of pants and the splints on LLE, pt oked. Family at bedside for support. Dinner tray brought up at bedside. Tele applied, and ICU RNs stated that pt was in A flutter, Dr Wing notified while speaking with pt and family. VS: BP 122/94, HR 92, O2 95% RA, TEMP 97.6 F, & RR 16. Bed alarm on, call light in reach. Oriented pt to bed controls and call light.
[2022-08-20] MEDS: OXYCODONE IR 5 MG TABLET PO (19:03)
[2022-08-20] MEDS: methocarbamoL 500 MG TABLET 750 MG PO (19:04)
[2022-08-20] MEDS: HYDROMORPHONE 0.5 MG INJ IV ×2 (20:22→22:59)
[2022-08-20] MEDS: INSULIN GLARGINE 100 UNIT/ML 3ML PEN 10 UNIT SUBCUT (20:34)
[2022-08-20] MEDS: INSULIN LISPRO 100 UNIT/ML 3ML VIAL SUBCUT (20:34)
[2022-08-21] VITALS (13 sets, daily range): BP systolic 106–122; BP diastolic 60–75; PULSE 53–82; RESP 17–18; TEMP 36.1–36.9; O2SAT 94–99
[2022-08-21] MEDS: HYDROMORPHONE 0.5 MG INJ IV ×6 (02:09→17:26)
[2022-08-21 04:52] LABS: INR 2.1 (0.9-1.3); Prothrombin Time 24.6 SECONDS (10.1-12.7)
[2022-08-21 05:00] LABS: Alanine Aminotransferase 24 IU/L (<35); Albumin 3.4 g/dL (3.5-5.0); Albumin Globulin Ratio 1.4 (1.0-2.8); Alkaline Phosphatase 96 U/L (38-126); Aspartate Aminotransferase 26 IU/L (14-36); BUN Creatinine Ratio 24.8 (6-22); Bilirubin Total 1.6 mg/dL (0.2-1.3); Blood Urea Nitrogen 25 mg/dL (7-17); Calcium 8.3 mg/dL (8.4-10.2); Carbon Dioxide 32 mmol/L (22-32); Chloride 100 mmol/L (98-107); Estimated Glomerular Filt Rate 56 mL/min (>60); Globulin 2.4 g/dL (1.7-4.1); Glucose 207 mg/dL (80-110); HEMOLYSIS < 15 (0-50); Magnesium 1.5 mg/dL (1.6-2.3); Potassium 4.3 mmol/L (3.4-5.1); Sodium 136 mmol/L (137-145); Total Protein 5.8 g/dL (6.3-8.2)
[2022-08-21 05:02] LABS: Add Manual Diff / Slide Review NO; Basophils Absolute Auto 0 /uL (0-100); Basophils Percent Auto 0.3 % (0-2); Eosinophils Absolute Auto 300 /uL (0-450); Eosinophils Percent Auto 2.2 % (2-4); Hematocrit 39.9 % (36-46); Lymphocytes Absolute Auto 2600 /uL (1100-4500); Lymphocytes Percent Auto 21.7 % (25-40); Mean Corpuscular HGB Conc 32.5 % (30-36); Mean Corpuscular Hemoglobin 30.6 PG (26-34); Mean Corpuscular Volume 93.9 fL (80-100); Monocytes Absolute Auto 1300 /uL (0-900); Monocytes Percent Auto 10.6 % (3-14); Neutrophils Absolute Auto 7900 /uL (1500-7000); Neutrophils Percent Auto 65.2 % (50-75); Platelet Count 186 X10^3/uL (150-400); Red Blood Cell Count 4.25 X10^6/uL (4.0-5.2); Red Cell Distribution Width 14.7 % (11.6-14.8); White Blood Cell Count 12.2 X10^3/uL (4.5-11.0)
[2022-08-21] MEDS: MAGNESIUM SULFATE 2 GM/50 ML PIGGYBACK IV (06:13)
[2022-08-21 06:58] LABS: Hemoglobin A1C% w Est Avg Glu 11.5 % (4.0-6.0)
--- NOTE | 2022-08-21 07:07 | P.CONS_ITS ---
History of Present Illness Consult details Date Patient Seen: 08/21/22 Time Patient Seen: 07:07 Chief complaint: fall, Reason for consult: Right elbow fracture, left ankle fracture Requesting provider: Ayde Diallo Narrative: Patient is an 81-year-old female that fell while she was walking her dog. She was charged her attacked by 2 other larger dogs and she fell. She sustained an injury to her right elbow and to her left ankle. She was brought to [facility] found to have a displaced right olecranon fracture and a trimalleolar left ankle fracture. She was also supratherapeutic on her INR. She was adm itted for her multiple fractures inability to ambulate and need for surgical fixation. Meds Home Medications and Allergies Home Medications Medication Instructions Recorded Confirmed Type atorvastatin 20 mg tablet (Lipitor) 20 mg PO DAILY ##0 08/22/17 01/19/21 History allopurinol 100 mg tablet 200 mg PO DAILY 05/08/19 01/19/21 History aspirin 325 mg tablet 325 mg PO DAILY 05/08/19 01/19/21 History codeine 10 mg-guaifenesin 100 mg/5 5 ml PO Q4-6H PRN Cough 05/08/19 01/19/21 History mL oral liquid (Guaifenesin AC) diltiazem HCl 240 mg 240 mg PO DAILY #20 caps 05/08/19 01/19/21 Rx capsule,extended release 24 hr (Cardizem CD) furosemide 20 mg tablet (Lasix) 20 mg PO QAM #7 tabs 05/08/19 01/19/21 Rx gabapentin 300 mg capsule 300 mg PO TID 05/08/19 01/19/21 History insulin NPH isoph U-100 human 100 10 unit SUBCUT BID 05/08/19 01/19/21 History unit/mL subcutaneous suspension (Novolin N NPH U-100 Insulin isophane) lidocaine HCl 2 % topical cream 1 applic topical TID PRN pain 05/08/19 01/19/21 History metformin 1,000 mg tablet 1,000 mg PO BID 05/08/19 01/19/21 History valacyclovir 1 gram tablet 2,000 mg PO BID 05/08/19 01/19/21 History (Valtrex) lisinopril 40 mg tablet 20 mg PO DAILY 08/08/21 08/08/21 History warfarin 5 mg tablet 5 mg PO DAILY 01/19/21 01/19/21 History Allergies Allergy/AdvReac Type Severity Reaction Status Date / Time No Known Drug Allergies Allergy Verified 08/20/22 10:28 Review of Systems Review of Systems ROS: Yes All systems reviewed with the patient and are negative except as otherwise documented Exam Vital Signs (past 8 hours): - 08/21/22 02:00 08/21/22 02:00 08/21/22 04:28 Temperature 98.4 F 98.5 F Pulse Rate 72 79 Respiratory Rate 18 18 Blood Pressure 106/60 115/64 Pulse Oximetry 95 95 95 Oxygen Delivery Method Nasal Cannula Oxygen Flow Rate 2 2 2 08/21/22 06:00 Temperature Pulse Rate Respiratory Rate Blood Pressure Pulse Oximetry 95 Oxygen Delivery Method Nasal Cannula Oxygen Flow Rate 2 Oxygen Delivery Method Nasal Cannula Oxygen Flow Rate 2 Narrative Exam Narrative: Alert oriented female in no acute distress lying in bed. Lungs clear to auscultation bilaterally. Heart regular rate Moving upper extremity left without difficulty. Right upper extremity in a long-arm splint. Ecchymosis noted into the lateral hand and digits. He is able to flex and extend all digits. Palpable radial pulse. Sensation grossly intact. Normal shoulder girdle. Normal right lower extremity no tenderness or swelling. 5/5 dorsiflexion plantar flexion. Calf is soft. Left lower extremity in splint. Wiggles toes. Sensation grossly intact. Knee without effusion. Ankle range of motion not assessed due to placement of splint and known fracture. Negative hip log roll bilaterally. Objective Imaging Right elbow x-rays: My impression: Right elbow demonstrating displaced olecranon fracture. Effusion. Intercalary fragment Radiologist's impression: IMPRESSION: [id number] effusion with comminuted mildly displaced olecranon fracture. Dictated by: Jil Veliz M.D. on 08/20/2022 at 11:24 Ankle x-ray left: My impression: Three views of the left ankle AP and lateral demonstrate comminuted fibula fracture at the level of the syndesmosis. Small medial malleolus fracture and small posterior malleolus fracture, trimalleolar left ankle fracture. Radiologist's impression: IMPRESSION: Comminuted distal fibular fracture as well as mildly displaced medial malleolar fracture. Dictated by: Jil Veliz M.D. on 08/20/2022 at 11:22 Approved by: Jil Veliz M.D. on 08/20/2022 at 11:24 Labs 08/21/22 04:20 08/21/22 04:20 Labs: Laboratory Results - last 24 hr 08/20/22 08/20/22 08/20/22 10:32 10:32 10:32 WBC 10.9 RBC 4.86 Hgb 15.0 Hct 46.4 H MCV 95.4 MCH 30.8 MCHC 32.2 RDW 14.8 Plt Count 246 Neut % (Auto) 63.7 Lymph % (Auto) 29.4 [place] % (Auto) 5.5 Eos % (Auto) 1.2 L Baso % (Auto) 0.2 Neut # (Auto) 6900 Lymph # (Auto) 3200 [place] # (Auto) 600 Eos # (Auto) 100 Baso # (Auto) 0 PT 25.4 H INR 2.2 H APTT 34 Sodium Potassium Chloride Carbon Dioxide BUN Creatinine Estimated GFR BUN/Creatinine Ratio Glucose Hemoglobin A1c Lactate Calcium Magnesium Total Bilirubin AST ALT Alkaline Phosphatase Total Creatine Kinase 109 CK-MB (CK-2) 1.45 CK-MB (CK-2) Rel Index 1.3 L Troponin I < 0.012 Total Protein Albumin Globulin Albumin/Globulin Ratio Lipase Ethyl Alcohol SARS-CoV-2 (PCR) 08/20/22 08/20/22 08/20/22 10:32 10:32 12:45 WBC RBC Hgb Hct MCV MCH MCHC RDW Plt Count Neut % (Auto) Lymph % (Auto) [place] % (Auto) Eos % (Auto) Baso % (Auto) Neut # (Auto) Lymph # (Auto) [place] # (Auto) Eos # (Auto) Baso # (Auto) PT INR APTT Sodium 137 Potassium 3.8 Chloride 100 Carbon Dioxide 28 BUN 18 H Creatinine 0.93 Estimated GFR > 60 BUN/Creatinine Ratio 19.4 Glucose 296 H Hemoglobin A1c Lactate 2.5 H 1.6 Calcium 8.7 Magnesium Total Bilirubin 1.3 AST 32 ALT 27 Alkaline Phosphatase 121 Total Creatine Kinase CK-MB (CK-2) CK-MB (CK-2) Rel Index Troponin I Total Protein 6.9 Albumin 4.1 Globulin 2.8 Albumin/Globulin Ratio 1.5 Lipase 213 Ethyl Alcohol < 10 SARS-CoV-2 (PCR) 08/20/22 08/21/22 08/21/22 17:33 04:20 04:20 WBC 12.2 H RBC 4.25 Hgb 13.0 Hct 39.9 MCV 93.9 MCH 30.6 MCHC 32.5 RDW 14.7 Plt Count 186 Neut % (Auto) 65.2 Lymph % (Auto) 21.7 L [place] % (Auto) 10.6 Eos % (Auto) 2.2 Baso % (Auto) 0.3 Neut # (Auto) 7900 H Lymph # (Auto) 2600 [place] # (Auto) 1300 H Eos # (Auto) 300 Baso # (Auto) 0 PT 24.6 H INR 2.1 H APTT Sodium Potassium Chloride Carbon Dioxide BUN Creatinine Estimated GFR BUN/Creatinine Ratio Glucose Hemoglobin A1c Lactate Calcium Magnesium Total Bilirubin AST ALT Alkaline Phosphatase Total Creatine Kinase CK-MB (CK-2) CK-MB (CK-2) Rel Index Troponin I Total Protein Albumin Globulin Albumin/Globulin Ratio Lipase Ethyl Alcohol SARS-CoV-2 (PCR) Negative 08/21/22 08/21/22 04:20 04:20 WBC RBC Hgb Hct MCV MCH MCHC RDW Plt Count Neut % (Auto) Lymph % (Auto) [place] % (Auto) Eos % (Auto) Baso % (Auto) Neut # (Auto) Lymph # (Auto) [place] # (Auto) Eos # (Auto) Baso # (Auto) PT INR APTT Sodium 136 L Potassium 4.3 Chloride 100 Carbon Dioxide 32 BUN 25 H Creatinine 1.01 Estimated GFR 56 L BUN/Creatinine Ratio 24.8 H Glucose 207 H Hemoglobin A1c 11.5 H Lactate Calcium 8.3 L Magnesium 1.5 L Total Bilirubin 1.6 H AST 26 ALT 24 Alkaline Phosphatase 96 Total Creatine Kinase CK-MB (CK-2) CK-MB (CK-2) Rel Index Troponin I Total Protein 5.8 L Albumin 3.4 L Globulin 2.4 Albumin/Globulin Ratio 1.4 Lipase Ethyl Alcohol SARS-CoV-2 (PCR) [facility] Medical History CAD (coronary artery disease) HTN (hypertension) Paroxysmal atrial fibrillation Type 2 diabetes mellitus Surgical History H/O coronary angioplasty Family History Father CAD (coronary artery disease) Mother Cancer Social History household members: family Tobacco & Substance Use Smoking Status: Never smoker alcohol intake: current Assessment & Plan Assessment and plan (1) Elbow fracture, right: Status: Acute (2) Ankle fracture: Qualifiers: Encounter type: initial encounter Fracture type: closed Laterality: left Qualified Code(s): S82.892A - Other fracture of left lower leg, initial encounter for closed fracture Status: Acute (3) Chronic anticoagulation: Status: Acute Plan 81-year-old female with multiple surgical fractures. Indicated for open reduction internal fixation displaced right olecranon fracture. Plan for fixation later today after INR corrected. Goal of surgery to restore joint alignment and extensor mechanism Left displaced trimalleolar ankle fracture indicated for surgical fixation to restore alignment reduce the risk of posttraumatic arthritis and dysfunction. The risks and benefits of the procedures have been discussed with the patient and given the opportunity to ask questions. The risks of surgery include but are not limited to infection, malunion, nonunion, persistence of pain, damage to nerves and blood vessels, posttraumatic arthritis, DVT, PE, coardiopulmonary complications and . The patient expressed a thorough understanding of the risks and benefits of surgery and has elected to proceed. Consent was signed. There was coordinated with the hospitalist team. She is currently INR 2.1. They will be pushing FFP to correct her INR prior to surgical time. Estimated OR time 12 noon. They will push FFP 2 hours prior. Discussed goal for surgery INR below 1.5. Medical decision-making decision for surgery. Polytrauma multiple injuries anticoagulated status. Risks discussed including wound healing problems, hematoma, infection immobility cardiac and pulmonary complications. Update 08/21/2022 8:50 a.m.--- [facility] operating room surgery is now closed due to instrument issues.--surgery canceled for today. Yet to be determined timing when the operating room can be reopened and whether the dante ent can be accommodated at this facility or require transfer elsewhere to address her injuries. COVID-19 COVID-19 status: Negative Time Spent With Patient Time with patient: 30 to 49 minutes with 50% spent counseling/coordinating care Critical Care time: I spent a total of [] minutes of critical care time on this patient's care today; this time is exclusive of procedural time.
[2022-08-21] MEDS: dilTIAZem CD 240 MG CAP PO (08:30)
[2022-08-21] MEDS: INSULIN LISPRO 100 UNIT/ML 3ML VIAL SUBCUT ×4 (09:43→20:47)
[2022-08-21] MEDS: methocarbamoL 500 MG TABLET 750 MG PO ×2 (09:47→23:37)
[2022-08-21] MEDS: OXYCODONE IR 5 MG TABLET PO ×4 (09:48→23:37)
--- NOTE | 2022-08-21 15:24 | P.PN_ITS ---
Subjective Subjective Interval history: 81-year-old female with coronary artery disease, hypertension, paroxysmal atrial fibrillation, insulin-dependent diabetes mellitus type 2, and prior stroke who was admitted with left tib-fib fracture and right olecranon fracture after mechanical fall. Patient was scheduled for surgery today. However due to sterilization issues in the operating room, all surgeries were deferred pending further evaluation. Patient did have urinary retention overnight and required straight catheterization. Patient reports ongoing pain related to her fractures. She denies any new co mplaints. She has had 3 containers of water since her NPO diet was discontinued. Family is at bedside. Exam Vital Signs (past 8 hours): - 08/21/22 08:00 08/21/22 10:22 08/21/22 11:25 Temperature 97.0 F L 97.1 F L Pulse Rate 53 L 80 Respiratory Rate 17 17 Blood Pressure 106/63 113/75 Pulse Oximetry 95 99 95 Oxygen Delivery Method Room Air Oxygen Flow Rate 0 1 08/21/22 11:26 08/21/22 13:56 Temperature Pulse Rate Respiratory Rate Blood Pressure Pulse Oximetry 95 96 Oxygen Delivery Method Nasal Cannula Oxygen Flow Rate 2 2 Oxygen Delivery Method Nasal Cannula Oxygen Flow Rate 2 Narrative Exam Narrative: GEN: Alert and oriented x 3, NAD HEENT:NC, Face symmetric CHEST: Respiratory excursions symmetric, CTAB CV: Regularly irregular, no M/R/G ABD: Firm, moderately distended, nontender, BT present in all 4 quadrants, distention limits exam EXTR: warm, well perfused, no C/C/E, right upper extremity is in a splint, left lower extremity is in a splint SKIN: warm and dry, no rash NEURO: Alert and oriented x 3, nonfocal Objective Labs 08/21/22 04:20 08/21/22 04:20 Labs: Laboratory Results - last 24 hr 08/20/22 08/21/22 08/21/22 17:33 04:20 04:20 WBC 12.2 H RBC 4.25 Hgb 13.0 Hct 39.9 MCV 93.9 MCH 30.6 MCHC 32.5 RDW 14.7 Plt Count 186 Neut % (Auto) 65.2 Lymph % (Auto) 21.7 L [place] % (Auto) 10.6 Eos % (Auto) 2.2 Baso % (Auto) 0.3 Neut # (Auto) 7900 H Lymph # (Auto) 2600 [place] # (Auto) 1300 H Eos # (Auto) 300 Baso # (Auto) 0 PT 24.6 H INR 2.1 H Sodium Potassium Chloride Carbon Dioxide BUN Creatinine Estimated GFR BUN/Creatinine Ratio Glucose Hemoglobin A1c Calcium Magnesium Total Bilirubin AST ALT Alkaline Phosphatase Total Protein Albumin Globulin Albumin/Globulin Ratio SARS-CoV-2 (PCR) Negative Blood Type 08/21/22 08/21/22 08/21/22 04:20 04:20 07:40 WBC RBC Hgb Hct MCV MCH MCHC RDW Plt Count Neut % (Auto) Lymph % (Auto) [place] % (Auto) Eos % (Auto) Baso % (Auto) Neut # (Auto) Lymph # (Auto) [place] # (Auto) Eos # (Auto) Baso # (Auto) PT INR Sodium 136 L Potassium 4.3 Chloride 100 Carbon Dioxide 32 BUN 25 H Creatinine 1.01 Estimated GFR 56 L BUN/Creatinine Ratio 24.8 H Glucose 207 H Hemoglobin A1c 11.5 H Calcium 8.3 L Magnesium 1.5 L Total Bilirubin 1.6 H AST 26 ALT 24 Alkaline Phosphatase 96 Total Protein 5.8 L Albumin 3.4 L Globulin 2.4 Albumin/Globulin Ratio 1.4 SARS-CoV-2 (PCR) Blood Type O Positive [facility] Medical History CAD (coronary artery disease) HTN (hypertension) Paroxysmal atrial fibrillation Type 2 diabetes mellitus Surgical History H/O coronary angioplasty Family History Father CAD (coronary artery disease) Mother Cancer Social History household members: family Smoking Status: Never smoker alcohol intake: current Assessment & Plan Assessment & Plan narrative: 1. Left tib-fib fracture, right olecranon fracture after mechanical fall Currently surgery is on hold pending reopening of the operating rooms. Will advance diet. INR was 2.1 this morning. There was a plan for FFP but as surgery has been delayed, this has been held. I am told her surgery has been rescheduled for 9:00 a.m. on August 23. Will make her NPO after midnight tomorrow. Goal INR will be less than 1.5. 2. Paroxysmal atrial fibrillation/atrial flutter Will resume warfarin anticoagulation. Remains on telemetry. Presently rate controlled. Plan to hold warfarin after tonight's dose. 4. Abdominal distention with associated oliguria Bladder scan to be done in approximately 15 minutes. Patient last had a bowel movement 2 days ago. Will monitor closely. It is possible she needs additional diuresis. She only takes 5 mg of furosemide daily. Additionally, it maybe she now has some bladder distention related to retention issues. Could also be contributed to by constipation. Adding senna and Colace once daily today. 4. Coronary artery disease Continue usual home medications 5. Diabetes mellitus type 2, insulin dependent At baseline she is on NPH 15 units b.i.d.. She was initiated on Lantus 10 units with middle range sliding scale. Blood sugars here have ranged from 188-253. W ill increase Lantus to 15 units daily. Continue sliding scale. 6. Hypertension Blood pressures are normotensive here. Given plans for surgery, will hold lisinopril for now. 7. Hyperlipidemia Resume atorvastatin. 8. Possible concussion CT scan of the head was unremarkable. Will continue monitoring. Code status full Prophylaxis Resuming anticoagulation pending determination of when her surgery will be rescheduled Disposition Acute care Time Spent With Patient Critical Care time: I spent a total of [] minutes of critical care time on this patient's care today; this time is exclusive of procedural time. Quality VTE Deep Vein Thrombosis/Pulmonary Embolism Present on Admission: No
--- NOTE | 2022-08-21 15:53 | PC.NURSE ---
Day shift: Per Dr Adams surgery planned for 899. INR needs to be 1.5 or less and NPO at midnight per protocol. Dr Roe made aware.
[2022-08-21] MEDS: FUROSEMIDE 20 MG TABLET 5 MG PO (16:17)
--- NOTE | 2022-08-21 16:32 | CM.DANOTE ---
Initial DCP Assessment Note Pt is an 81 yo female, resident of [place], arrives after a fall while walking her dog and subsequent elbow and ankle fractures requiring surgical repair. PCP: Fariha Rollins Payer: [facility] OR is not available today and so patient awaiting the reopening of the OR to get scheduled for surgical repair Meanwhile, met w/patient, dtr Amanda and her Renato at bedside, introduced self and role Patient had been walking multiple times daily, indp and active until this event. Patient states multiple times to this [employer] she would like to return home w/assist from her family upon discharge. Family admit they are unsure if this will be a safe plan but willing to wait for therapy recommendations after patient's surgery Patient's spouse last month and adult children have recently moved from their home in [place] to assist patient. CM team will plan to follow closely along as medical plan of care unfolds and therapy recommendations are documented after initial MEENAKSHI Reynoso Discharge Planning/Care Management CM Discharge Assessment Start: 08/21/22 16:29 Freq: Status: Active Protocol: Document 08/21/22 16:29 LELAND (Rec: 08/21/22 16:32 LELAND [id number]) Discharge Planning Assessment Assigned Manager Multicultural MEENAKSHI Marks DPOA/Assigned Designee Name Amanda Zhang Contact Information [phone] Advance Directives? Yes: Advance Directive Advance Directives on File Yes History Provided By Patient,Family Member,Medical Record Prior Living Arrangements House Household Members family Type of transporation used prior to Relies on Others admit Independent with ADL's Yes Is patient alert and oriented? Yes Barriers to Discharge Yes Comment Awaiting surgical repair of multiple fractures; CM team following closely for reassessment of need post opertaively and after PT/OT katt Whiteboard Updated in Patient Room with Yes name and ext. # of Manager Multicultural
--- NOTE | 2022-08-21 17:59 | P.PN_ITS ---
Subjective Subjective Date Patient Seen: 08/21/22 Time Patient Seen: 17:59 Interval history: UPDATE: Surgery now planned for Wednesday08/23/22 at 9AM-- request INR 1.5 or less for surgery NPO MN 08/22/22 Exam Vital Signs (past 8 hours): - 08/21/22 10:22 08/21/22 11:25 08/21/22 11:26 Temperature 97.1 F L Pulse Rate 80 Respiratory Rate 17 Blood Pressure 113/75 Pulse Oximetry 99 95 95 Oxygen Delivery Method Room Air Oxygen Flow Rate 1 2 08/21/22 13:56 08/21/22 15:00 Temperature 97.3 F L Pulse Rate 81 Respiratory Rate 17 Blood Pressure 122/71 Pulse Oximetry 96 95 Oxygen Delivery Method Nasal Cannula Oxygen Flow Rate 2 0 Oxygen Delivery Method Nasal Cannula Oxygen Flow Rate 0 Objective Labs 08/21/22 04:20 08/21/22 04:20 Labs: Laboratory Results - last 24 hr 08/21/22 08/21/22 08/21/22 04:20 04:20 04:20 WBC 12.2 H RBC 4.25 Hgb 13.0 Hct 39.9 MCV 93.9 MCH 30.6 MCHC 32.5 RDW 14.7 Plt Count 186 Neut % (Auto) 65.2 Lymph % (Auto) 21.7 L [place] % (Auto) 10.6 Eos % (Auto) 2.2 Baso % (Auto) 0.3 Neut # (Auto) 7900 H Lymph # (Auto) 2600 [place] # (Auto) 1300 H Eos # (Auto) 300 Baso # (Auto) 0 PT 24.6 H INR 2.1 H Sodium 136 L Potassium 4.3 Chloride 100 Carbon Dioxide 32 BUN 25 H Creatinine 1.01 Estimated GFR 56 L BUN/Creatinine Ratio 24.8 H Glucose 207 H Hemoglobin A1c Calcium 8.3 L Magnesium 1.5 L Total Bilirubin 1.6 H AST 26 ALT 24 Alkaline Phosphatase 96 Total Protein 5.8 L Albumin 3.4 L Globulin 2.4 Albumin/Globulin Ratio 1.4 Blood Type 08/21/22 08/21/22 04:20 07:40 WBC RBC Hgb Hct MCV MCH MCHC RDW Plt Count Neut % (Auto) Lymph % (Auto) [place] % (Auto) Eos % (Auto) Baso % (Auto) Neut # (Auto) Lymph # (Auto) [place] # (Auto) Eos # (Auto) Baso # (Auto) PT INR Sodium Potassium Chloride Carbon Dioxide BUN Creatinine Estimated GFR BUN/Creatinine Ratio Glucose Hemoglobin A1c 11.5 H Calcium Magnesium Total Bilirubin AST ALT Alkaline Phosphatase Total Protein Albumin Globulin Albumin/Globulin Ratio Blood Type O Positive [facility] Medical History CAD (coronary artery disease) HTN (hypertension) Paroxysmal atrial fibrillation Type 2 diabetes mellitus Surgical History H/O coronary angioplasty Family History Father CAD (coronary artery disease) Mother Cancer Social History household members: family Smoking Status: Never smoker alcohol intake: current Assessment & Plan Time Spent With Patient Critical Care time: I spent a total of [] minutes of critical care time on this patient's care today; this time is exclusive of procedural time. Quality VTE Deep Vein Thrombosis/Pulmonary Embolism Present on Admission: No
[2022-08-21 18:29] LABS: Appearance Urine UA CLEAR; Bilirubin Urine UA NEGATIVE (NEGATIVE); Color Urine UA YELLOW; Glucose Urine UA TRACE g/dL (Negative); Ketones Urine UA NEGATIVE (NEGATIVE); Leukocyte Esterase Urine UA NEGATIVE (NEGATIVE); Nitrite Urine UA NEGATIVE (Negative); Occult Blood Urine UA NEGATIVE (Negative); Protein Urine UA NEGATIVE (Negative); Specific Gravity Urine UA >=1.030 (1.000-1.035); Urobilinogen Urine UA 0.2 E.U./dL (0.2)
[2022-08-21 18:47] LABS: Bacteria Urine None Seen; Culture Indicated Urine Cult Not Indicated; Hyaline Casts Urine 1-5/LPF; RBC Urine 0-1/HPF (0-5/HPF); Squamous Epithelial Cell Urine 0-1 /HPF (0-5/HPF); Transitional Epi Cells Urine 0-1/HPF (0-5/HPF); WBC Urine 1-5/HPF (0-5/HPF)
[2022-08-21] MEDS: ATORVASTATIN 20 MG TABLET PO (20:42)
[2022-08-21] MEDS: GABAPENTIN 100 MG CAPSULE 200 MG PO (20:42)
[2022-08-21] MEDS: SENNOSIDES 8.6 MG TABLET PO (20:42)
[2022-08-21] MEDS: INSULIN GLARGINE 100 UNIT/ML 3ML PEN 15 UNIT SUBCUT (20:48)
[2022-08-22] VITALS (10 sets, daily range): BP systolic 102–145; BP diastolic 62–79; PULSE 64–85; RESP 17–18; TEMP 35.7–37.7; O2SAT 94–96
[2022-08-22] MEDS: HYDROMORPHONE 0.5 MG INJ IV ×5 (02:42→20:51)
[2022-08-22] MEDS: OXYCODONE IR 5 MG TABLET PO ×2 (04:38→14:32)
[2022-08-22] MEDS: ACETAMINOPHEN 325 MG TABLET 650 MG PO (04:38)
[2022-08-22 05:10] LABS: INR 1.6 (0.9-1.3); Prothrombin Time 18.5 SECONDS (10.1-12.7)
[2022-08-22 05:14] LABS: Add Manual Diff / Slide Review NO; Basophils Absolute Auto 0 /uL (0-100); Basophils Percent Auto 0.2 % (0-2); Eosinophils Absolute Auto 100 /uL (0-450); Eosinophils Percent Auto 0.5 % (2-4); Hematocrit 38.4 % (36-46); Hemoglobin 12.6 g/dL (12.0-16.0); Lymphocytes Absolute Auto 1800 /uL (1100-4500); Lymphocytes Percent Auto 10.3 % (25-40); Mean Corpuscular HGB Conc 32.8 % (30-36); Mean Corpuscular Hemoglobin 31.1 PG (26-34); Mean Corpuscular Volume 94.8 fL (80-100); Monocytes Absolute Auto 1800 /uL (0-900); Monocytes Percent Auto 10.5 % (3-14); Neutrophils Absolute Auto 13800 /uL (1500-7000); Neutrophils Percent Auto 78.5 % (50-75); Platelet Count 170 X10^3/uL (150-400); Red Blood Cell Count 4.05 X10^6/uL (4.0-5.2); Red Cell Distribution Width 14.6 % (11.6-14.8); White Blood Cell Count 17.6 X10^3/uL (4.5-11.0)
[2022-08-22 05:16] LABS: Alanine Aminotransferase 23 IU/L (<35); Albumin 3.5 g/dL (3.5-5.0); Albumin Globulin Ratio 1.3 (1.0-2.8); Alkaline Phosphatase 106 U/L (38-126); Aspartate Aminotransferase 24 IU/L (14-36); BUN Creatinine Ratio 29.6 (6-22); Bilirubin Total 1.8 mg/dL (0.2-1.3); Blood Urea Nitrogen 29 mg/dL (7-17); Calcium 8.2 mg/dL (8.4-10.2); Carbon Dioxide 28 mmol/L (22-32); Chloride 95 mmol/L (98-107); Estimated Glomerular Filt Rate 58 mL/min (>60); Globulin 2.6 g/dL (1.7-4.1); Glucose 338 mg/dL (80-110); HEMOLYSIS < 15 (0-50); Magnesium 2.1 mg/dL (1.6-2.3); Potassium 4.4 mmol/L (3.4-5.1); Sodium 129 mmol/L (137-145); Total Protein 6.1 g/dL (6.3-8.2)
[2022-08-22] MEDS: allopurinoL 100 MG TABLET 200 MG PO (08:22)
[2022-08-22] MEDS: DOCUSATE 100 MG CAPSULE PO (08:23)
[2022-08-22] MEDS: FUROSEMIDE 20 MG TABLET 5 MG PO (08:23)
[2022-08-22] MEDS: GABAPENTIN 100 MG CAPSULE 200 MG PO ×3 (08:24→20:51)
[2022-08-22] MEDS: methocarbamoL 500 MG TABLET 750 MG PO (08:24)
[2022-08-22] MEDS: INSULIN LISPRO 100 UNIT/ML 3ML VIAL SUBCUT ×3 (08:25→17:20)
[2022-08-22] MEDS: dilTIAZem CD 240 MG CAP PO (08:30)
--- NOTE | 2022-08-22 11:00 | DI.RAD.S_ITS ---
PROCEDURE: XR CLAVICLE RT INDICATIONS: right clavicle pain at SC joint; s/p fall TECHNIQUE: 2 views of the clavicle were acquired. COMPARISON: None. FINDINGS: Bones: The right 2nd and 3rd ribs have fractures laterally. No fracture of the clavicle is identified. No suspicious bony lesions. Degenerative changes of the glenohumeral joint and acromioclavicular joint. Soft tissues: No suspicious soft tissue calcifications. IMPRESSION: 1. Fractures of the right 2nd and 3rd ribs laterally. 2. Degenerative changes of the glenohumeral joint and acromioclavicular joint. Dictated by: Wyatt Milian M.D. on 08/22/2022 at 10:47 Approved by: Wyatt Milian M.D. on 08/22/2022 at 10:50
--- NOTE | 2022-08-22 11:01 | DI.RAD.S_ITS ---
PROCEDURE: XR SHOULDER RT MIN 2V INDICATIONS: right shoulder pain s/p fall TECHNIQUE: 3 views of the shoulder were acquired. COMPARISON: None. FINDINGS: Bones: Fractures of the right 2nd, 3rd, 4th, 5th and 6th ribs are identified. Degenerative changes of the right glenohumeral joint and acromioclavicular joint. No fractures or dislocations. No suspicious bony lesions. Visualized ribs appear intact. No pneumothorax. Soft tissues: No suspicious soft tissue calcifications. IMPRESSION: Fractures of the right 2nd through 6th ribs. No pneumothorax. Dictated by: Wyatt Milian M.D. on 08/22/2022 at 10:52 Approved by: Wyatt Milian M.D. on 08/22/2022 at 10:53
--- NOTE | 2022-08-22 11:03 | PM.PN.1 ---
Subjective Subjective Date Patient Seen: 08/22/22 Time Patient Seen: 11:03 Interval history: Patient is complaining of moderate right elbow pain, moderate left ankle pain. She is also complaining of right clavicle pain neck pain and right shoulder pain. She is not had any imaging on her clavicle or shoulder yet. Her family is at bedside. INR is currently 1.6 this morning, she has NPO orders for midnight tonight. Surgery for her right elbow and left ankle is planned for tomorrow. Exam Vital Signs (past 8 hours): - 08/22/22 05:31 08/22/22 06:00 08/22/22 09:00 Temperature 99.8 F H 97.3 F L Pulse Rate 73 85 Respiratory Rate 18 17 Blood Pressure 139/79 127/71 Pulse Oximetry 95 95 96 Oxygen Delivery Method Room Air Oxygen Flow Rate 0 Fraction of Inspired Oxygen 28 Oxygen Delivery Method Room Air Oxygen Flow Rate 0 Narrative Exam Narrative: 81-year-old female, resting comfortably in bed, no acute distress. Right clavicle is moderately tender to palpation over the SC joint and there is possible mild deformity noted here as compared to the left SC joint. Right shoulder is tender to palpation over the humeral head. Bilateral upper extremity: Motor functions are grossly intact, sensation is grossly intact to light touch. Bilateral lower extremity: Patient is able to wiggle her toes, sensation is grossly intact to light touch, calves are soft and nontender to palpation. Objective Labs 08/22/22 04:38 08/22/22 04:38 Labs: Laboratory Results - last 24 hr 08/21/22 08/21/22 08/22/22 07:40 17:40 04:38 WBC 17.6 H RBC 4.05 Hgb 12.6 Hct 38.4 MCV 94.8 MCH 31.1 MCHC 32.8 RDW 14.6 Plt Count 170 Neut % (Auto) 78.5 H Lymph % (Auto) 10.3 L [place] % (Auto) 10.5 Eos % (Auto) 0.5 L Baso % (Auto) 0.2 Neut # (Auto) 56328 H Lymph # (Auto) 1800 [place] # (Auto) 1800 H Eos # (Auto) 100 Baso # (Auto) 0 PT INR Sodium Potassium Chloride Carbon Dioxide BUN Creatinine Estimated GFR BUN/Creatinine Ratio Glucose Calcium Magnesium Total Bilirubin AST ALT Alkaline Phosphatase Total Protein Albumin Globulin Albumin/Globulin Ratio Urine Color Yellow Urine Appearance Clear Urine pH 5.0 Ur Specific [place] >=1.030 H Urine Protein Negative Urine Glucose (UA) Trace H Urine Ketones Negative Urine Occult Blood Negative Urine Nitrate Negative Urine Bilirubin Negative Urine Urobilinogen 0.2 Ur Leukocyte Esterase Negative Urine RBC 0-1/hpf Urine WBC 1-5/hpf Ur Squamous Epith Cells 0-1 /hpf Ur Transition Epith Cell 0-1/hpf Urine Bacteria None seen Hyaline Casts 1-5/lpf Ur Culture Indicated? Cult not indicated Blood Type O Positive 08/22/22 08/22/22 04:38 04:38 WBC RBC Hgb Hct MCV MCH MCHC RDW Plt Count Neut % (Auto) Lymph % (Auto) [place] % (Auto) Eos % (Auto) Baso % (Auto) Neut # (Auto) Lymph # (Auto) [place] # (Auto) Eos # (Auto) Baso # (Auto) PT 18.5 H D INR 1.6 H Sodium 129 L Potassium 4.4 Chloride 95 L Carbon Dioxide 28 BUN 29 H Creatinine 0.98 Estimated GFR 58 L BUN/Creatinine Ratio 29.6 H Glucose 338 H D Calcium 8.2 L Magnesium 2.1 Total Bilirubin 1.8 H AST 24 ALT 23 Alkaline Phosphatase 106 Total Protein 6.1 L Albumin 3.5 Globulin 2.6 Albumin/Globulin Ratio 1.3 Urine Color Urine Appearance Urine pH Ur Specific [place] Urine Protein Urine Glucose (UA) Urine Ketones Urine Occult Blood Urine Nitrate Urine Bilirubin Urine Urobilinogen Ur Leukocyte Esterase Urine RBC Urine WBC Ur Squamous Epith Cells Ur Transition Epith Cell Urine Bacteria Hyaline Casts Ur Culture Indicated? Blood Type PFSH Medical History CAD (coronary artery disease) HTN (hypertension) Paroxysmal atrial fibrillation Type 2 diabetes mellitus Surgical History H/O coronary angioplasty Family History Father CAD (coronary artery disease) Mother Cancer Social History household members: family Smoking Status: Never smoker alcohol intake: current Assessment & Plan Assessment & Plan narrative: 81-year-old female with multiple surgical fractures. Indicated for open reduction internal fixation displaced right olecranon fracture. Plan for fixation 08/23/22, as long as INR <1.5. Goal of surgery to restore joint alignment and extensor mechanism Left displaced trimalleolar ankle fracture indicated for surgical fixation to restore alignment reduce the risk of posttraumatic arthritis and dysfunction. The care is coordinated with the hospitalist team. She is currently INR 1.6. Discussed goal for surgery INR below 1.5. Appreciate the hospitalist team with help regarding her polytrauma multiple injuries anticoagulated status. Risks discussed including wound healing problems, hematoma, infection immobility cardiac and pulmonary complications. -ordered right clavicle and right shoulder x-rays today. The patient had a neck CT scan done upon admission. -NPO after midnight tonight, INR less than 1.5 for surgery planned tomorrow, 08/23/2022 at 9:00 a.m. Time Spent With Patient Critical Care time: I spent a total of [] minutes of critical care time on this patient's care today; this time is exclusive of procedural time. Quality VTE Deep Vein Thrombosis/Pulmonary Embolism Present on Admission: No
--- NOTE | 2022-08-22 14:27 | CM.DPNOTE ---
Discharge Planning Note: Patient is scheduled for surgery at 0900 tomorrow morning for repair of R elbow fx and L ankle fx caused by GLF. Discussed with daughter Abhinav and her spouse Renato regarding aftercare. They live in [place] and are not capable of caring for her mom postop and so the plan is SNF. [facility]st Choice [facility], 2nd: [facility], 3rd: [facility]. Patient has AARP Medicare ([facility]). Spoke with Asim at [facility] she thinks they can accept [facility]. Will fax them and [facility] initial referrals. Plan: Follow up on referrals. Follow for discharge needs. Keep daughter updated. Marta Mixon RN/DCP
--- NOTE | 2022-08-22 16:45 | PM.PN.1 ---
Subjective Subjective Interval history: 81-year-old female with coronary artery disease, hypertension, paroxysmal atrial fibrillation, insulin-dependent diabetes mellitus type 2, and prior stroke who was admitted with left tib-fib fracture and right olecranon fracture after mechanical fall.? Patient was scheduled for surgery yesterday. However due to sterilization issues in the operating room, all surgeries were deferred pending further evaluation.? Surgery has now been rescheduled for tomorrow morning at 9:00 a.m.. Patient reports ongoing pain related to her fractures.? This morning she was complaining of right-sided clavicle pain and shoulder pain. She underwent x-rays which revealed right 2nd through 6th rib fractures without pneumothorax. Patient denies any shortness of breath or chest pain. She expresses significant frustration with her multiple injuries. Exam Vital Signs (past 8 hours): - 08/22/22 10:00 08/22/22 14:00 08/22/22 09:00 Temperature 97.3 F L Pulse Rate 85 Respiratory Rate 17 Blood Pressure 127/71 Pulse Oximetry 94 94 96 Oxygen Delivery Method Nasal Cannula Nasal Cannula Oxygen Flow Rate 2 2 0 08/22/22 13:00 Temperature 97.1 F L Pulse Rate 64 Respiratory Rate 17 Blood Pressure 127/67 Pulse Oximetry 96 Oxygen Delivery Method Oxygen Flow Rate 2 Fraction of Inspired Oxygen 28 Oxygen Delivery Method Nasal Cannula Oxygen Flow Rate 2 Narrative Exam Narrative: GEN: Alert and oriented x 3, NAD HEENT:NC, Face symmetric, flushed cheeks CHEST: Respiratory excursions symmetric, CTAB CV:? Irregularly irregular, no M/R/G ABD:? Slightly Firm, moderately distended, nontender, BT present in all 4 quadrants, no appreciable organomegaly or masses EXTR: warm, well perfused, no C/C/E, right upper extremity is in a splint, left lower extremity is in a splint SKIN: warm and dry, no rash NEURO: Alert and oriented x 3, nonfocal Objective Labs 08/22/22 04:38 08/22/22 04:38 Labs: Laboratory Results - last 24 hr 08/21/22 08/21/22 08/22/22 07:40 17:40 04:38 WBC 17.6 H RBC 4.05 Hgb 12.6 Hct 38.4 MCV 94.8 MCH 31.1 MCHC 32.8 RDW 14.6 Plt Count 170 Neut % (Auto) 78.5 H Lymph % (Auto) 10.3 L [place] % (Auto) 10.5 Eos % (Auto) 0.5 L Baso % (Auto) 0.2 Neut # (Auto) 10286 H Lymph # (Auto) 1800 [place] # (Auto) 1800 H Eos # (Auto) 100 Baso # (Auto) 0 PT INR Sodium Potassium Chloride Carbon Dioxide BUN Creatinine Estimated GFR BUN/Creatinine Ratio Glucose Calcium Magnesium Total Bilirubin AST ALT Alkaline Phosphatase Total Protein Albumin Globulin Albumin/Globulin Ratio Urine Color Yellow Urine Appearance Clear Urine pH 5.0 Ur Specific [place] >=1.030 H Urine Protein Negative Urine Glucose (UA) Trace H Urine Ketones Negative Urine Occult Blood Negative Urine Nitrate Negative Urine Bilirubin Negative Urine Urobilinogen 0.2 Ur Leukocyte Esterase Negative Urine RBC 0-1/hpf Urine WBC 1-5/hpf Ur Squamous Epith Cells 0-1 /hpf Ur Transition Epith Cell 0-1/hpf Urine Bacteria None seen Hyaline Casts 1-5/lpf Ur Culture Indicated? Cult not indicated Blood Type O Positive 08/22/22 08/22/22 04:38 04:38 WBC RBC Hgb Hct MCV MCH MCHC RDW Plt Count Neut % (Auto) Lymph % (Auto) [place] % (Auto) Eos % (Auto) Baso % (Auto) Neut # (Auto) Lymph # (Auto) [place] # (Auto) Eos # (Auto) Baso # (Auto) PT 18.5 H D INR 1.6 H Sodium 129 L Potassium 4.4 Chloride 95 L Carbon Dioxide 28 BUN 29 H Creatinine 0.98 Estimated GFR 58 L BUN/Creatinine Ratio 29.6 H Glucose 338 H D Calcium 8.2 L Magnesium 2.1 Total Bilirubin 1.8 H AST 24 ALT 23 Alkaline Phosphatase 106 Total Protein 6.1 L Albumin 3.5 Globulin 2.6 Albumin/Globulin Ratio 1.3 Urine Color Urine Appearance Urine pH Ur Specific [place] Urine Protein Urine Glucose (UA) Urine Ketones Urine Occult Blood Urine Nitrate Urine Bilirubin Urine Urobilinogen Ur Leukocyte Esterase Urine RBC Urine WBC Ur Squamous Epith Cells Ur Transition Epith Cell Urine Bacteria Hyaline Casts Ur Culture Indicated? Blood Type PFSH Medical History CAD (coronary artery disease) HTN (hypertension) Paroxysmal atrial fibrillation Type 2 diabetes mellitus Surgical History H/O coronary angioplasty Family History Father CAD (coronary artery disease) Mother Cancer Social History household members: family Smoking Status: Never smoker alcohol intake: current Assessment & Plan Assessment & Plan narrative: 1. Left tib-fib fracture, right olecranon fracture after mechanical fall, with newly identified right 2nd through 6th rib fractures Currently surgery is on hold pending reopening of the operating rooms with a plan for surgery tomorrow at 9:00 a.m.. INR is down to 1.6. Goal is 1.5 or less. Warfarin has been held.? She will be NPO after midnight. Given the diagnosis of rib fractures, I have added incentive spirometry q.2 hours while awake. Explained the patient that while it will be uncomfortable for her it is imperative that she have good pulmonary hygiene to avoid pneumonia. She expresses agreement. 2. Paroxysmal atrial fibrillation/atrial flutter Will continue to hold warfarin anticoagulation.? Remains on telemetry.? Presently rate controlled.? 4. Abdominal distention with associated oliguria Urine output is improved today. She put out 1050 yesterday and 1000 so far today. She is drinking fairly well at this time. Will be NPO after midnight. For now, will defer additional IV fluids as she is also on Lasix chronically and the goal would be to avoid volume overload. 4. Coronary artery disease Continue usual home medications 5.? Diabetes mellitus type 2, insulin dependent At baseline she is on NPH 15 units b.i.d..? Lantus was increased from 10 units to 15 units daily yesterday. Blood sugars have been in the high 200 to low 300s. Will give an additional 10 units of Lantus today. And to resume her usual NPH insulin postoperatively. Continue sliding scale. 6. Hypertension Blood pressures remain normotensive.? Given plans for surgery, will hold lisinopril for now. 7. Hyperlipidemia Continue atorvastatin. 8. Possible concussion CT scan of the head was unremarkable.? Will continue monitoring. Code status ?full Prophylaxis Holding anticoagulation as surgery is planned for tomorrow. Disposition Acute care ? Time Spent With Patient Critical Care time: I spent a total of [] minutes of critical care time on this patient's care today; this time is exclusive of procedural time. Quality VTE Deep Vein Thrombosis/Pulmonary Embolism Present on Admission: No
[2022-08-22] MEDS: INSULIN GLARGINE 100 UNIT/ML 3ML PEN 10 UNIT SUBCUT (17:27)
[2022-08-22] MEDS: ATORVASTATIN 20 MG TABLET PO (20:51)
[2022-08-22] MEDS: SENNOSIDES 8.6 MG TABLET PO (20:52)
[2022-08-22] MEDS: INSULIN GLARGINE 100 UNIT/ML 3ML PEN 15 UNIT SUBCUT (20:57)
[2022-08-22] MEDS: SODIUM CHLORIDE 0.9% 1,000 ML 60 ML IV (21:17)
[2022-08-23] VITALS (20 sets, daily range): BP systolic 81–139; BP diastolic 44–72; PULSE 56–80; RESP 10–18; TEMP 35.5–37.9; O2SAT 90–98; BMI 26.9
--- NOTE | 2022-08-23 | DI.RAD.S_ITS ---
PROCEDURE: XR ELBOW RT 2V INDICATIONS: RT ELBOW ORIF TECHNIQUE: 3 views of the elbow were acquired. COMPARISON: None. FINDINGS: Intraoperative fluoroscopic views of ORIF IMPRESSION: Intraoperative fluoroscopic views of ORIF Dictated by: Wyatt Milian M.D. on 08/23/2022 at 12:24 Approved by: Wyatt Milian M.D. on 08/23/2022 at 12:24
--- NOTE | 2022-08-23 | DI.RAD.S_ITS ---
PROCEDURE: XR ANKLE LT 2V INDICATIONS: ORIF TECHNIQUE: 3 views of the ankle were acquired. COMPARISON: [facility], CR, XR ANKLE LT 2V, 08/20/2022, 10:24. FINDINGS: Bones: No fractures or dislocations. Ankle mortise is normally aligned. No suspicious bony lesions. Postoperative changes of distal fibular and medial malleolar fixation. Soft tissues: No tibiotalar joint effusion. Achilles tendon appears normal. IMPRESSION: Postoperative changes. Dictated by: Wyatt Milian M.D. on 08/23/2022 at 10:11 Approved by: Wyatt Milian M.D. on 08/23/2022 at 10:12
[2022-08-23] MEDS: HYDROMORPHONE 0.5 MG INJ IV (01:19)
[2022-08-23] MEDS: OXYCODONE IR 5 MG TABLET PO ×4 (03:43→23:59)
[2022-08-23 04:20] LABS: Add Manual Diff / Slide Review NO; Basophils Absolute Auto 0 /uL (0-100); Basophils Percent Auto 0.3 % (0-2); Eosinophils Absolute Auto 100 /uL (0-450); Eosinophils Percent Auto 0.7 % (2-4); Hematocrit 34.8 % (36-46); Hemoglobin 11.5 g/dL (12.0-16.0); Lymphocytes Absolute Auto 1700 /uL (1100-4500); Mean Corpuscular HGB Conc 33.1 % (30-36); Mean Corpuscular Hemoglobin 31.1 PG (26-34); Mean Corpuscular Volume 93.9 fL (80-100); Monocytes Absolute Auto 1500 /uL (0-900); Neutrophils Absolute Auto 11900 /uL (1500-7000); Platelet Count 176 X10^3/uL (150-400); Red Blood Cell Count 3.71 X10^6/uL (4.0-5.2); Red Cell Distribution Width 15.1 % (11.6-14.8); White Blood Cell Count 15.2 X10^3/uL (4.5-11.0)
[2022-08-23 04:29] LABS: Alanine Aminotransferase 29 IU/L (<35); Albumin Globulin Ratio 1.1 (1.0-2.8); Alkaline Phosphatase 97 U/L (38-126); Aspartate Aminotransferase 66 IU/L (14-36); BUN Creatinine Ratio 35.1 (6-22); Bilirubin Total 1.5 mg/dL (0.2-1.3); Blood Urea Nitrogen 40 mg/dL (7-17); Carbon Dioxide 25 mmol/L (22-32); Chloride 97 mmol/L (98-107); Estimated Glomerular Filt Rate 48 mL/min (>60); Globulin 2.7 g/dL (1.7-4.1); Glucose 336 mg/dL (80-110); HEMOLYSIS < 15 (0-50); Magnesium 2.1 mg/dL (1.6-2.3); Potassium 4.6 mmol/L (3.4-5.1); Sodium 131 mmol/L (137-145); Total Protein 5.7 g/dL (6.3-8.2)
[2022-08-23 04:37] LABS: INR 1.3 (0.9-1.3); Prothrombin Time 15.3 SECONDS (10.1-12.7)
[2022-08-23] MEDS: INSULIN LISPRO 100 UNIT/ML 3ML VIAL SUBCUT ×4 (05:47→21:30)
--- NOTE | 2022-08-23 08:11 | PM.PREOP ---
Pre-operative Note Interval Note History & Physical reviewed/Exam performed by Physician: Yes Changes to H&P: No
[2022-08-23] MEDS: dilTIAZem CD 240 MG CAP PO (08:24)
[2022-08-23] MEDS: LACTATED RINGERS 1,000 ML 42 ML IV ×2 (08:49→11:33)
--- NOTE | 2022-08-23 08:59 | SUR.HOLD ---
Patient in holding area for surgery. GCS 15; Afib noted on monitor of controlled rate 72; lungs clear on auscultation; bae catheter draining bertin colored urine to bedside bag. Patient has splint noted to LLE; unable to palpate dorsalis pedal pulse due to splint. Able to wiggle toes, cap refill WNL. 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 Blood sugar 253; Insulin drip provided to anesthesiologist.
[2022-08-23] MEDS: CEFAZOLIN 2 GM/100 ML PREMIX 100 ML IV ×2 (09:18→16:59)
[2022-08-23] MEDS: INSULIN DRIP PREMIX 100 UNIT/100 ML PLAST..BAG IV (09:30)
--- NOTE | 2022-08-23 09:33 | SUR.OPER ---
Supine on padded OR bed, head on pillow, arms secured on padded arm boards at <90 degrees abduction, legs uncrossed, safety belt at thigh, tape over blanket over non operative leg, operative leg bump under hip, towel bump under leg. Pt positioned per direction and supervision of Dr Zambrano. Lateral on a saldivar bag, head on pillow, gel axillary roll in place, bottom leg bent with gel pad under knee to foot, upper leg straight and supported with pillows. Upper arm supported by pillows and secured over bottom arm to padded arm board. Safety belt at hip, tape over blanket lower legs. Pt positioned per direction and supervision of Dr Zambrano.
--- NOTE | 2022-08-23 11:22 | PC.NURSE ---
Addendum entered by Nadia Reyes R.N. 08/23/22 12:48: call from QUIN graham. patient still in surgery, her LE is completed, and the surgery is now being completed on her arm. daughter and son in law are downstairs in the waiting area. report to DEMETRI modi Original Note: 71: patient is a/o, awaiting surgery this AM at 0900. NPO since midnight. patient appears to be alot more comfortable this morning compared to yesterday. reports 2/10 pain at rest, 4/10 w/ movement. call from Flower MOSQUERA from OR. instructed to check patient's glucose, give SSI, and cardizem. glucose 273, fast acting coverage given per protocol. accepted cardizem w/ sip of water. daughter and son in law are present in room. Dr Zambrano in to review consent. expected surgery time is approx 4-5 hours. patient off floor at approx 0800.
[2022-08-23] MEDS: BUPIVACAINE 0.25% W/ EPI 30 ML VIAL INJ (12:09)
--- NOTE | 2022-08-23 13:03 | P.OP_ITS ---
Operative Date/Time/Diagnoses Date of procedure: 08/23/22 Time of procedure: 09:03 Pre-op diagnosis: 1. Right comminuted olecranon fracture 2. Left trimalleolar ankle fracture displaced 3. AFib with RVR 4. Chronic anticoagulation 5. Diabetes with hyperglycemia Post-op diagnosis: same Procedure & Clinicians Procedure: 1. Open reduction internal fixation left trimalleolar ankle fracture without posterior lip CPT code 13545 2. open reduction internal fixation syndesmotic disruption left ankle CPT code 17048 3. Open reduction internal fixation right olecranon fracture CPT code 98984- 59 Same procedure as scheduled: Yes Indications: Patient is an 81-year-old right-hand dominant female that fell when she was charged by large dogs. She sustained a closed right olecranon fracture and closed left trimalleolar ankle fracture. She has medical comorbidities of diabetes and atrial fibrillation on chronic anticoagulation. She was indicated for hospital admission due to her inability to ambulate due to bilateral extremity fractures as well as right 2 through 6 rib fractures. She was indicated for open reduction internal fixation of her right olecranon fracture to restore her extensor mechanism and to fix her left displaced trimalleolar ankle fracture in order to align the joint reduced the risk of posttraumatic arthritis and dysfunction. The risks and benefits of the procedure have been discussed with the patient and given the opportunity to ask questions. The risks of surgery include but are not limited to infection, malunion, nonunion, persistence of pain, damage to nerves and blood vessels, posttraumatic arthritis, DVT, PE, cardiopulmonary complications and . The patient expressed a thorough understanding of the risks and benefits of surgery and has elected to proceed. Consent was signed. She required correction of her INR and was 1.3 on the date of surgery. Surgeon: Lorrie Zambrano Click Yes if Unassisted: Yes Anesthesia Type: General and Local Operative Notes Findings: Displaced comminuted right olecranon fracture stabilized with a 4 hole Plaza and Nephew anatomic olecranon plate utilizing 2.7 nonlocking and locking screws in the proximal fragment and 3.5 locking and nonlocking screws in the shaft. Extensor mechanism intact after fixation. Displaced left trimalleolar ankle fracture. Osteoporotic fracture. Fibula was fixed with a 3.8 x 130 Arthrex fibular locked nail medial malleolus was fixed with a 4.0 cannulated screw the posterior malleolus was treated closed and the syndesmosis was treated with syndesmotic screws interlocked through the fibula locked nail. Syndesmosis was stable after fixation. Closure Type: primary Specimen(s): none sent Prosthetic devices, grafts, tissues, transplants, or devices: Left ankle: Arthrex fibulock nail 130 x 3.8. 3.0 cancellous distal screws. 3.5 x 2 syndesmotic screws, medial malleolus 1 long thread 4.0 cannulated screw Right olecranon: Plaza and Nephew anatomic 4 hole tined olecranon plate from the [employer] small set 2.7 screws proximally, 3.5 screws distally Estimated Blood Loss (mL): 50 Blood products transfused: none Tourniquet time (min): 60 Procedure in detail: Patient was seen in the preoperative area the site of surgery was marked informed consent confirmed she was brought back to the operating room by the anesthesia team positioned supine on operative table. General anesthetic was administered. The left lower extremity was prepped and draped in the standard sterile fashion a formal time-out procedure was performed confirming the patient's side and site of surgery administration of appropriate preoperative antibiotic. All were in agreement. Attention turned to the left ankle the Esmarch was used for exsanguination the tourniquet elevated on the thigh to 250 mm of mercury. This stayed elevated for 60 minutes. C-arm was brought in and the fibula and level of the fracture were marked out. Then a small incision about 1 cm distal to the fibula was made through the skin. The guidewire was inserted to the tip of the fibula and then through the fibula and across the fracture site and confirmed on AP and lateral planes to be intramedullary. Once it was completed the opening Reamer was inserted and then this was removed and then the 3.2 followed by the 4.0 reamers. The 3.8 x 130 mm fibular locked nail was selected. This was then inserted in the standard fashion. Once the appropriate depth was confirmed the proximal tines were deployed and then the 2 distal screws were placed. At 1st a 2.7 screw was placed with this pulled directly back out of the nail stuck to the screwdriver therefore this was exchanged for a 3.0 cancellous screw and an additional 3.0 cancellous screw was placed in the other lateral to medial screw hole. Next the medial malleolus was noted to reduce well with reduction of the fibula. Therefore the syndesmosis was pinned and then fixed with 2 3.5 syndesmotic screws through the fibular locked nail utilizing the guide.. The posterior malleolus was treated closed. Then attention was turned to the medial malleolus small incision was made medially identifying the medial malleolar fracture this was cleaned out and clamped in place with a bone clamp then a guidewire was utilized to carefully direct a 4.0 cannulated screw across the small medial malleolar fracture. This was inserted vertical in order to engage the lateral cortex for better bite and osteoporotic bone. Once this was completed the ankle was taken through range of motion syndesmosis was stable. Mortise was symmetric. Tourniquet was released hemostasis was achieved wounds were irrigated and closed in a layered fashion with 2-0 Vicryl 4-0 Monocryl and 3-0 nylon suture. Sterile dressing and splint was applied. Next the drapes removed and the patient was re-prepped and draped in the lateral decubitus position to dress the right elbow. Care was taken to make sure all bony prominences were well padded a well-padded axillary roll was placed. Another time-out procedure was performed confirming implants consent and team agreement. Esmarch was used for exsanguination the tourniquet was raised on the brachium to 250 mmHg. This was elevated for 40 minutes and then released. Attention turned to the elbow. A incision was taken along the back of the elbow curving to the lateral side of the olecranon and then down the subcutaneous border of the ulna. This was taken through the skin subcutaneous tissue. Care was taken to raise full-thickness flaps. Fracture hematoma was immediately encountered. There is a comminuted olecranon fracture with 1 main proximal piece with the triceps attachment and then several smaller comminuted cancellous pieces along the joint. This was meticulously cleaned and then the fracture and elbow were brought into extension reducing the fracture and pinning it in place with a K-wire. This was checked on intraoperative fluoroscopy then the 4 hole Plaza and Nephew anatomic plate was placed with the tines into the triceps insertion on the proximal fragment this was provisionally secured with an olive wire and then this was re moved and a 3.5 screw was placed through the oblong hole this was placed down loosely and then attention was turned proximally and 1 of the proximal home-run screws was placed with a nonlocking screw further advancing the plate down to bone once this was completed the oblong hole screw was fully tightened. At this time a 2nd home-run screw was placed proximally using a 2.7 locking screw and an additional 2.7 locking screw in the tip of the proximal fragment. Two additional locking 3.5 screws were placed in the shaft distally. Elbow was taken through range of motion was full flexion and extension full pronation and supination. Final intraoperative x-rays were obtained tourniquet was released. Hemostasis was achieved the wound was irrigated and closed in a layered fashion with 2-0 Vicryl 4-0 Monocryl 3-0 nylon and ryland. A well-padded posterior splint was applied. The patient was woken from anesthesia and taken to recovery room in good condition. There no immediate complications from this procedure. Counts were correct. Complications: none Post-operative Condition: stable Disposition: PACU Plan for aftercare: 1. 2 lb weight limit right upper extremity will stay in resting splint for 2 weeks then will return for suture and staple removal. And will go into sling. They also have resting 90 degree splint up to 4 weeks. We will start therapy for gentle range of motion after the 2 week wound check. 2. Left lower extremity 25% weight-bearing in splint for transfers. Follow-up in 2 weeks for wound check and suture removal. If swelling then sutures will be maintained longer. Can go into walking boot at 1st follow-up may advance to 50% weight-bearing at 2 weeks postop continue 50% weight-bearing through 6 weeks, then as tolerated Will resume her baseline warfarin. Discharge per primary when safe for home or rehab.
--- NOTE | 2022-08-23 13:28 | SUR.PHASEI ---
Patient remains very drowsy but opening eyes and following simple commands when prompted. Falls back to sleep quickly. Appears to be in no distress. VSS. Remains in atrial fibrillation at a rate of 58-72. Oxygen saturation at 95% on 3 liters via nasal cannula.
--- NOTE | 2022-08-23 15:41 | PM.PN.1 ---
Subjective Subjective Interval history: 81-year-old female with coronary artery disease, hypertension, paroxysmal atrial fibrillation, insulin-dependent diabetes mellitus type 2, and prior stroke who was admitted with left tib-fib fracture and right olecranon fracture after mechanical fall.? She was subsequently found also to have right 2nd through 6th rib fractures. Patient was scheduled for surgery on 08/21/2022.? However due to sterilization issues in the operating room, all surgeries were deferred pending further evaluation.? Surgery was rescheduled for this morning and she underwent ORIF of left trimalleolar ankle fracture without posterior lip, ORIF syndesmotic disruption left ankle, and ORIF right olecranon fracture. Patient is still sedated and drowsy after her surgery. She does arouse easily and denies complaint. Son and [id number] are present at bedside. They have no concerns. We discussed the importance of good pulmonary hygiene in the setting of her rib fractures. Family also notes that she seemed more sit in at her baseline mental status this morning. They also report she smiled this morning which was the 1st time she would done that since her injury. Exam Vital Signs (past 8 hours): - 08/23/22 08:00 08/23/22 08:55 08/23/22 12:57 Temperature 97.9 F 97.8 F 98.4 F Pulse Rate 76 73 73 Respiratory Rate 16 16 11 L Blood Pressure 110/56 L 108/52 L 84/44 L Pulse Oximetry 95 91 94 Oxygen Delivery Method Room Air Nasal Cannula Oxygen Flow Rate 5 08/23/22 13:00 08/23/22 13:06 08/23/22 13:12 Temperature Pulse Rate 74 64 66 Respiratory Rate 11 L 12 10 L Blood Pressure 94/56 L 81/51 L 117/49 L Pulse Oximetry 93 93 93 Oxygen Delivery Method Nasal Cannula Nasal Cannula Nasal Cannula Oxygen Flow Rate 5 5 5 08/23/22 13:16 08/23/22 13:21 08/23/22 13:36 Temperature Pulse Rate 73 76 75 Respiratory Rate 12 11 L 11 L Blood Pressure 122/50 L 134/72 139/68 Pulse Oximetry 94 96 94 Oxygen Delivery Method Nasal Cannula Nasal Cannula Nasal Cannula Oxygen Flow Rate 5 4 3 Fraction of Inspired Oxygen 24 Oxygen Delivery Method Nasal Cannula Oxygen Flow Rate 3 Narrative Exam Narrative: GEN: Sleeping, sedate, postop, NAD HEENT:NC, Face symmetric, flushed cheeks CHEST: Respiratory excursions symmetric, CTAB CV:? Irregularly irregular, no M/R/G ABD:? Slightly Firm, moderately distended, nontender, BT present in all 4 quadrants, no appreciable organomegaly or masses EXTR: warm, well perfused, no C/C/E, postoperative dressings to right and left leg SKIN: warm and dry, no rash NEURO: Drowsy, nonfocal Objective Labs 08/23/22 04:05 08/23/22 04:05 Labs: Laboratory Results - last 24 hr 08/23/22 08/23/22 08/23/22 04:05 04:05 04:05 WBC 15.2 H RBC 3.71 L Hgb 11.5 L Hct 34.8 L MCV 93.9 MCH 31.1 MCHC 33.1 RDW 15.1 H Plt Count 176 Neut % (Auto) 78.0 H Lymph % (Auto) 11.0 L [place] % (Auto) 10.0 Eos % (Auto) 0.7 L Baso % (Auto) 0.3 Neut # (Auto) 67780 H Lymph # (Auto) 1700 [place] # (Auto) 1500 H Eos # (Auto) 100 Baso # (Auto) 0 PT 15.3 H INR 1.3 Sodium 131 L Potassium 4.6 Chloride 97 L Carbon Dioxide 25 BUN 40 H Creatinine 1.14 H Estimated GFR 48 L BUN/Creatinine Ratio 35.1 H Glucose 336 H Calcium 8.0 L Magnesium 2.1 Total Bilirubin 1.5 H AST 66 H ALT 29 Alkaline Phosphatase 97 Total Protein 5.7 L Albumin 3.0 L Globulin 2.7 Albumin/Globulin Ratio 1.1 PFSH Medical History CAD (coronary artery disease) HTN (hypertension) Paroxysmal atrial fibrillation Type 2 diabetes mellitus Surgical History H/O coronary angioplasty Family History Father CAD (coronary artery disease) Mother Cancer Social History household members: family Smoking Status: Never smoker alcohol intake: current Assessment & Plan Assessment & Plan narrative: 1. Left tib-fib fracture, right olecranon fracture after mechanical fall, with newly identified right 2nd through 6th rib fractures Patient is now postop day 0 from ORIF of her left tib-fib fracture and right olecranon fracture. INR is down to 1.3 today. Warfarin was held in preparation for surgery. Likely restarting anticoagulation tomorrow as long as she has no concern for postoperative bleeding. Continue working on good pulmonary hygiene with rib fractures. 2. Paroxysmal atrial fibrillation/atrial flutter Will continue to hold warfarin anticoagulation today with plan to restart tomorrow.? As her INR has now normalized, she may benefit from bridging therapy or at least adding DVT dosed Lovenox. Remains on telemetry.? Presently rate controlled.? 4. Abdominal distention with associated oliguria Urine output was 1250 yesterday. Only 350 documented today but she has been off the floor in the operating room. Baldwin catheter remains in place. Continue to monitor. 4. Coronary artery disease Continue usual home medications 5.? Diabetes mellitus type 2, insulin dependent At baseline she is on NPH 15 units b.i.d..? L she continues on Lantus 15 units subQ b.i.d. here. Overall, blood sugars are better. Continue fingersticks and sliding scale. Controlled carb diet. 6. Hypertension Blood pressures remain normotensive.? Lisinopril has been held in the setting surgery. 7. Hyperlipidemia Continue atorvastatin. 8. Possible concussion CT scan of the head was unremarkable.? Will continue monitoring. Code status ?full Prophylaxis Plan to restart anticoagulation tomorrow as long as she is no significant postoperative bleeding. Disposition Acute care Time Spent With Patient Critical Care time: I spent a total of [] minutes of critical care time on this patient's care today; this time is exclusive of procedural time. Quality VTE Deep Vein Thrombosis/Pulmonary Embolism Present on Admission: No
--- NOTE | 2022-08-23 16:07 | PC.NURSE ---
Patient back from surgery earlier. She has a splint on her R.elbow and L.ankle. She had ORIFs x2. PPx2, patient is groggy but easily wakes up.She is tolerating her iv fluids and is resting comfortably.
[2022-08-23] MEDS: WARFARIN 5 MG TABLET PO (16:57)
[2022-08-23] MEDS: INSULIN GLARGINE 100 UNIT/ML 3ML PEN 15 UNIT SUBCUT (21:28)
[2022-08-23] MEDS: ATORVASTATIN 20 MG TABLET PO (21:29)
[2022-08-23] MEDS: GABAPENTIN 100 MG CAPSULE 200 MG PO (21:29)
[2022-08-23] MEDS: SENNOSIDES 8.6 MG TABLET PO (21:31)
[2022-08-23] MEDS: SODIUM CHLORIDE 0.9% 1,000 ML 60 ML IV (21:31)
--- NOTE | 2022-08-23 23:24 | PC.NURSE ---
Patient is alert but oriented only to self, birthdate, place and situation. Responses are delayed and has difficulty finding appropriate words at times. Breath sounds CTA and was on oxygen at shift change but has now been weaned down to 0.5L/min and sat is at 92%. HR irregular with telemetry reading of aflutter. Denies nausea. BT present and states she is passing flatus but has not had a BM since 08/19; medicated with senna. Indwelling catheter is patent. Splint + billy wrap to right UE and left LE are CDI. Has some tingling/numbness in right hand/fingers but is able to feel all fingers and can wiggle them; good capillary refill and pulse. Has some tingling in left foot but able to wiggle all toes and has good cap refill and pulse. Did complain of 6/10 pain when asked and indicates pain is in right shoulder so was medicated with oxycodone. Right hand (below splint) is edematous and bruised but previous RN states it has been like that. Is being repositioned q2h as is not able to move herself. Gait not assessed at this time but will be partial weight bearing. Fall risk score is high and bed alarm is activated.
[2022-08-23] MEDS: ACETAMINOPHEN 325 MG TABLET 650 MG PO (23:59)
[2022-08-24] VITALS (14 sets, daily range): BP systolic 114–125; BP diastolic 59–69; PULSE 74–91; RESP 17–20; TEMP 36.3–37.9; O2SAT 92–99
[2022-08-24] MEDS: CEFAZOLIN 2 GM/100 ML PREMIX 100 ML IV (00:29)
[2022-08-24] MEDS: methocarbamoL 500 MG TABLET 750 MG PO ×3 (03:11→18:22)
[2022-08-24] MEDS: OXYCODONE IR 5 MG TABLET PO ×3 (03:11→09:42)
[2022-08-24 05:35] LABS: Add Manual Diff / Slide Review NO; Basophils Absolute Auto 0 /uL (0-100); Basophils Percent Auto 0.3 % (0-2); Eosinophils Absolute Auto 300 /uL (0-450); Hematocrit 29.2 % (36-46); Hemoglobin 9.7 g/dL (12.0-16.0); Lymphocytes Absolute Auto 1600 /uL (1100-4500); Lymphocytes Percent Auto 17.6 % (25-40); Mean Corpuscular HGB Conc 33.4 % (30-36); Mean Corpuscular Hemoglobin 31.5 PG (26-34); Mean Corpuscular Volume 94.5 fL (80-100); Monocytes Absolute Auto 1200 /uL (0-900); Monocytes Percent Auto 13.3 % (3-14); Neutrophils Absolute Auto 6000 /uL (1500-7000); Neutrophils Percent Auto 65.8 % (50-75); Platelet Count 182 X10^3/uL (150-400); Red Blood Cell Count 3.09 X10^6/uL (4.0-5.2); Red Cell Distribution Width 14.8 % (11.6-14.8); White Blood Cell Count 9.2 X10^3/uL (4.5-11.0)
[2022-08-24 05:43] LABS: INR 1.2 (0.9-1.3); Prothrombin Time 14.3 SECONDS (10.1-12.7)
[2022-08-24 05:48] LABS: BUN Creatinine Ratio 37.5 (6-22); Blood Urea Nitrogen 36 mg/dL (7-17); Calcium 7.1 mg/dL (8.4-10.2); Carbon Dioxide 25 mmol/L (22-32); Chloride 103 mmol/L (98-107); Estimated Glomerular Filt Rate 59 mL/min (>60); Glucose 224 mg/dL (80-110); HEMOLYSIS < 15 (0-50); Potassium 4.1 mmol/L (3.4-5.1); Sodium 133 mmol/L (137-145)
--- NOTE | 2022-08-24 07:36 | P.PN_ITS ---
Subjective Subjective Interval history: 81-year-old female with coronary artery disease, hypertension, paroxysmal atrial fibrillation, insulin-dependent diabetes mellitus type 2, and prior stroke who was admitted with left tib-fib fracture and right olecranon fracture after mechanical fall.? She was subsequently found also to have right 2nd through 6th rib fractures. Patient was scheduled for surgery on 08/21/2022.? However due to sterilization issues in the operating room, all surgeries were deferred pending further evaluation.? Surgery was rescheduled for this morning and she underwent ORIF of left trimalleolar ankle fracture without posterior lip, ORIF syndesmotic disruption left ankle, and ORIF right olecranon fracture. Patient having pain from her fractures, but willing to work with PT today. Exam Vital Signs (past 8 hours): - 08/23/22 23:59 08/24/22 00:00 08/24/22 02:43 Temperature 100.3 F H 100.3 F H 98.3 F Pulse Rate 74 Respiratory Rate 18 Blood Pressure 119/69 Pulse Oximetry 92 93 Oxygen Delivery Method Oxygen Flow Rate 0.5 1 08/24/22 02:43 08/24/22 06:37 Temperature 98.1 F Pulse Rate 78 Respiratory Rate 18 Blood Pressure 116/65 Pulse Oximetry 93 95 Oxygen Delivery Method Nasal Cannula Oxygen Flow Rate 1 1 Fraction of Inspired Oxygen 24 SaO2/FiO2 Ratio 391 Oxygen Delivery Method Nasal Cannula Oxygen Flow Rate 1 Narrative Exam Narrative: GEN: appears in pain, NAD HEENT:NC, Face symmetric, flushed cheeks CHEST: Respiratory excursions symmetric, CTAB CV:? Irregularly irregular, no M/R/G ABD:? Slightly Firm, moderately distended, nontender, BT present in all 4 quadrants, no appreciable organomegaly or masses EXTR: warm, well perfused, no C/C/E, postoperative dressings to right and left leg SKIN: warm and dry, no rash NEURO: Nonfocal, alert and oriented x3 Objective Labs 08/24/22 05:25 08/24/22 05:25 Labs: Laboratory Results - last 24 hr 08/21/22 08/24/22 08/24/22 07:40 05:25 05:25 WBC 9.2 RBC 3.09 L Hgb 9.7 L Hct 29.2 L MCV 94.5 MCH 31.5 MCHC 33.4 RDW 14.8 Plt Count 182 Neut % (Auto) 65.8 Lymph % (Auto) 17.6 L [place] % (Auto) 13.3 Eos % (Auto) 3.0 Baso % (Auto) 0.3 Neut # (Auto) 6000 Lymph # (Auto) 1600 [place] # (Auto) 1200 H Eos # (Auto) 300 Baso # (Auto) 0 PT 14.3 H INR 1.2 Sodium Potassium Chloride Carbon Dioxide BUN Creatinine Estimated GFR BUN/Creatinine Ratio Glucose Calcium Blood Type O Positive 08/24/22 05:25 WBC RBC Hgb Hct MCV MCH MCHC RDW Plt Count Neut % (Auto) Lymph % (Auto) [place] % (Auto) Eos % (Auto) Baso % (Auto) Neut # (Auto) Lymph # (Auto) [place] # (Auto) Eos # (Auto) Baso # (Auto) PT INR Sodium 133 L Potassium 4.1 Chloride 103 Carbon Dioxide 25 BUN 36 H Creatinine 0.96 Estimated GFR 59 L BUN/Creatinine Ratio 37.5 H Glucose 224 H D Calcium 7.1 L Blood Type [facility] Medical History CAD (coronary artery disease) HTN (hypertension) Paroxysmal atrial fibrillation Type 2 diabetes mellitus Surgical History H/O coronary angioplasty Family History Father CAD (coronary artery disease) Mother Cancer Social History household members: family Smoking Status: Never smoker alcohol intake: current Assessment & Plan Assessment & Plan narrative: 1. Left tib-fib fracture, right olecranon fracture after mechanical fall, with newly identified right 2nd through 6th rib fractures Patient is now postop day 1 from ORIF of her left tib-fib fracture and right olecranon fracture. Pain meds PRN with laxatives. Continue working on good pulmonary hygiene with rib fractures. Working with therapies and will likely need SNF. 2. Paroxysmal atrial fibrillation/atrial flutter Restarted warfarin postop on 08/23 with lovenox bridge as INR 1.2. Remains on telemetry.? Presently rate controlled.?Check daily INR's. 4. Coronary artery disease Continue usual home medications 5.? Diabetes mellitus type 2, insulin dependent At baseline she is on NPH 15 units b.i.d..? Blood sugars still quite high so will raise to 15 units NPH TID. Continue fingersticks and sliding scale. Controlled carb diet. 6. Hypertension Blood pressures remain normotensive.? Lisinopril has been held in the setting surgery. 7. Hyperlipidemia Continue atorvastatin. 8. Possible concussion CT scan of the head was unremarkable.? Will continue monitoring. Code status ?full Prophylaxis Warfarin with lovenox bridge Disposition SNF in 1-2 days. Time Spent With Patient Critical Care time: I spent a total of [] minutes of critical care time on this patient's care to day; this time is exclusive of procedural time. Quality VTE Deep Vein Thrombosis/Pulmonary Embolism Present on Admission: No
--- NOTE | 2022-08-24 08:28 | PM.PNPO.1 ---
Subjective Subjective Date Patient Seen: 08/24/22 Time Patient Seen: 08:28 Interval history: Ankle and elbow pain has been moderate to severe. Denies fever or chills. No nausea vomiting. No numbness and tingling in her upper or lower extremities. Exam Vital Signs (past 8 hours): - 08/24/22 02:43 08/24/22 02:43 08/24/22 06:37 Temperature 98.3 F 98.1 F Pulse Rate 74 78 Respiratory Rate 18 18 Blood Pressure 119/69 116/65 Pulse Oximetry 93 93 95 Oxygen Delivery Method Nasal Cannula Oxygen Flow Rate 1 1 1 Fraction of Inspired Oxygen 24 SaO2/FiO2 Ratio 391 Oxygen Delivery Method Nasal Cannula Oxygen Flow Rate 1 Narrative Exam Narrative: 81-year-old female resting comfortably in bed in no apparent distress. Splint is in place. Radial pulse 2 + right upper extremity. Able to move all fingers and flex and extend wrist. Sensation grossly intact to light touch. Left lower extremity is in a splint. Able to move all toes. Good capillary refill. Sensation intact to light touch. Const General: cooperative and comfortable Nutritional Appearance: well nourished Resp Effort & Inspection: normal respiratory effort and able to speak in complete sentences Objective Labs 08/24/22 05:25 08/24/22 05:25 Labs: Laboratory Results - last 24 hr 08/21/22 08/24/22 08/24/22 07:40 05:25 05:25 WBC 9.2 RBC 3.09 L Hgb 9.7 L Hct 29.2 L MCV 94.5 MCH 31.5 MCHC 33.4 RDW 14.8 Plt Count 182 Neut % (Auto) 65.8 Lymph % (Auto) 17.6 L [place] % (Auto) 13.3 Eos % (Auto) 3.0 Baso % (Auto) 0.3 Neut # (Auto) 6000 Lymph # (Auto) 1600 [place] # (Auto) 1200 H Eos # (Auto) 300 Baso # (Auto) 0 PT 14.3 H INR 1.2 Sodium Potassium Chloride Carbon Dioxide BUN Creatinine Estimated GFR BUN/Creatinine Ratio Glucose Calcium Blood Type O Positive 08/24/22 05:25 WBC RBC Hgb Hct MCV MCH MCHC RDW Plt Count Neut % (Auto) Lymph % (Auto) [place] % (Auto) Eos % (Auto) Baso % (Auto) Neut # (Auto) Lymph # (Auto) [place] # (Auto) Eos # (Auto) Baso # (Auto) PT INR Sodium 133 L Potassium 4.1 Chloride 103 Carbon Dioxide 25 BUN 36 H Creatinine 0.96 Estimated GFR 59 L BUN/Creatinine Ratio 37.5 H Glucose 224 H D Calcium 7.1 L Blood Type [facility] Medical History CAD (coronary artery disease) HTN (hypertension) Paroxysmal atrial fibrillation Type 2 diabetes mellitus Surgical History H/O coronary angioplasty Family History Father CAD (coronary artery disease) Mother Cancer Social History household members: family Smoking Status: Never smoker alcohol intake: current Assessment & Plan Post-op Postoperative Procedures: Procedures Operation Date: 08/23/22 10:00 Actual Procedure Side Surgeon p ORIF Ankle Fracture Left Lorrie Zambrano MD s ORIF olecranon fracture Right Lorrie Zambrano MD Operation Date: 08/24/22 11:00 <No data on this case meets the specified criteria> Postoperative day: 1 Postoperative status: marginal pain control Postoperative status narrative: Stable status post open reduction internal fixation left trimalleolar ankle fracture, open reduction internal fixation syndesmotic disruption left ankle, open reduction internal fixation right olecranon fracture. Postoperative plan narrative: 1. 2 lb weight limit right upper extremity will stay in resting splint for 2 weeks then will return for suture and staple removal. And will go into sling. They also have resting 90 degree splint up to 4 weeks. We will start therapy for gentle range of motion after the 2 week wound check. 2. Left lower extremity 25% weight-bearing in splint for transfers. Follow-up in 2 weeks for wound check and suture removal. If swelling then sutures will be maintained longer. Can go into walking boot at 1st follow-up may advance to 50% weight-bearing at 2 weeks postop continue 50% weight-bearing through 6 weeks, then as tolerated Will resume her baseline warfarin. Discharge per primary when safe for home or rehab. Quality VTE Deep Vein Thrombosis/Pulmonary Embolism Present on Admission: No
[2022-08-24] MEDS: INSULIN LISPRO 100 UNIT/ML 3ML VIAL SUBCUT ×3 (09:03→17:13)
[2022-08-24] MEDS: DOCUSATE 100 MG CAPSULE PO (09:41)
[2022-08-24] MEDS: GABAPENTIN 100 MG CAPSULE 200 MG PO ×3 (09:42→21:45)
[2022-08-24] MEDS: INSULIN NPH 100 UNIT/ML 10ML VIAL 15 UNIT SUBCUT ×3 (09:43→21:43)
[2022-08-24] MEDS: FUROSEMIDE 20 MG TABLET 5 MG PO (09:43)
[2022-08-24] MEDS: dilTIAZem CD 240 MG CAP PO (09:43)
[2022-08-24] MEDS: ENOXAPARIN 40 MG/0.4 ML SYRINGE SUBCUT (09:43)
[2022-08-24] MEDS: HYDROMORPHONE 0.5 MG INJ IV (10:15)
--- NOTE | 2022-08-24 10:52 | PT.IIE ---
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 (08/20/22) Surgery Performed Operation Date: 08/23/22 10:00 Actual Procedures p ORIF Ankle Fracture(Left) - Lorrie Zambrano MD s ORIF olecranon fracture(Right) - Lorrie Zambrano MD Operation Date: 08/24/22 11:00 <No data on this case meets the specified criteria> Surgical History (Last Reviewed 08/24/22 @ 08:32 by Elmer Riojas PA-C) H/O coronary angioplasty Medical History (Last Reviewed 08/24/22 @ 08:32 by Elmer Riojas PA-C) CAD (coronary artery disease) HTN (hypertension) Paroxysmal atrial fibrillation Type 2 diabetes mellitus Physical Therapy Inpatient Evaluation/Re-Eval M1 PT/OT-IP Prior Functional Status Start: 08/24/22 09:06 Freq: NEEDED Status: Active Protocol: Document 08/24/22 10:52 AW (Rec: 08/24/22 12:39 AW [id number]) Medical Review Prior Functional Status Medical History Reviewed Yes Communication Pt is an effective verbal communicator. Mobility and Gait Independent without AD. She denies falls in the past one year. Activities of Daily Living and IADL's Pt is right hand dominant. She is typically independent with all ADL's. Social History Household Members family Living Arrangements House Number of Floors (Floors) Two Floors Number of Stairs To Enter/Railing? 1 platform step and short threshhold to enter the home. Pt's family states this entrance would be accessible with a standard manual wheelchair. Pt stays on the main Home Environment High Toilet,Walk in Shower Home Equipment Hand Held Shower,Grab Bars In Shower Additional Social History Comment Pt's daughter and son-in-law live in the upstairs of her house and provide some assist. Her spouse ~a month ago. M2 PT-IP Current Condition Start: 08/24/22 09:06 Freq: NEEDED Status: Active Protocol: Document 08/24/22 10:52 AW (Rec: 08/24/22 12:39 AW [id number]) Physical Therapy Current Condition Current Condition Evaluation Date 08/24/22 Treatment Diagnosis L trimalleolar fx and R olecranon fx; R 2-6 rib fx; impaired mobility Onset Date 08/20/22 M3 PT-IP Subjective Start: 08/24/22 09:06 Freq: NEEDED Status: Active Protocol: Document 08/24/22 10:52 AW (Rec: 08/24/22 12:39 AW [id number]) Subjective Physical Therapy Visit Type Type Initial Evaluation Visit Start Time 10:09 Visit Stop Time 10:52 Total Visit Minutes 43 Notes Co-eval with OT due to pt's complex mobility needs Number of REGULATORY LEAD Visits 0 Physical Therapy Visit Comments Patient Comments Pt is hesitant to mobilize but receptive to education on importance of early mobility. Therapy Pain Assessment Pain When Pain Assessed At Rest Pain Present Pain Present Pain Reported Location Right Arm Intensity 7 Scale Used general LLE, RUE, neck, ribs Pain Behaviors Facial Grimacing,Wincing Pain Management Techniques Apply Cold,Distraction,Re- positioning,Timing of Activity with Medications M4 PT-IP Mobility and Gait Start: 08/24/22 09:06 Freq: NEEDED Status: Active Protocol: Document 08/24/22 10:52 AW (Rec: 08/24/22 12:39 AW [id number]) PT-Bed Mobility Assessment Supine to Sit Supine to Sit Maximum Assistance,2 Person Assistance,Head of Bed Elevated,Bedrails Sit to Supine Sit to Supine Maximum Assistance,2 Person Assistance Scooting Scooting to Edge of Bed Maximum Assistance Scooting Up and Down in Bed Maximum Assistance PT-Transfer Assessment Comments Mobility Comments Educated pt on weightbearing status for RUE (essentially NWB) and LLE (25% PWB). Pt received IV pain meds just prior to mobilization and reported wooziness sitting EOB. She needed max assist x 2 to sit up EOB. BP was stable before, during, and after assessment ~114/59-125/68 with HR ranging 74-82. In sitting, she had difficulty maintaining midline orientation and tended to drift posteriorly and toward the left. Pt grew more groggy in sitting and was unable to progress to standing or transfers. Max A x 2 was required to return to supine. Pt participated in repositioning by pushing with her right leg and pulling with her left arm but still needed max assist. Pt was left with OT for continued assessment. Gait Assessment Comments Gait Comments Unable this date. PT-Balance Assessment Sitting Balance and Reactions Static Sitting Balance Ability Fair Dynamic Sitting Balance Ability Fair Comments Other Balance Tests/Deviations/Treatment Pt needed min to mod assist : for sitting balance initially and as she fatigued. She was able to sit midline for brief periods ~5 seconds intermittently. M5 PT-IP Objective Assessments Start: 08/24/22 09:06 Freq: NEEDED Status: Active Protocol: Document 08/24/22 10:52 AW (Rec: 08/24/22 12:39 AW [id number]) Orientation Orientation/Cognition Level of Alertness Confusional State Orientation Name,Place,Situation Language Function Ability No Deficits Noted Safety Awareness Understands Safety Issues Comments Pt presents with increased confusion and anxiety. She benefits from reassurance and cues for measured breathing. Gross Range of Motion Upper Extremity ROM Assessment Right Impaired Impairments Pt in splint with swollen hand /fingers Lower Extremity ROM Assessment Left Impaired Impairments Able to flex/extend toes on a limited basis Strength Upper Extremity Strength Assessment Right Impaired Lower Extremity Strength Assessment Left Impaired Comments Strength Comments R hip flexion 4/5. R knee flex /ext 4+/5. R ankle 4+/5 DF. L hip flexion 4-/5. Sensation Assessment Sensation Gross Sensation WNL M6 PT-IP Treatment Start: 08/24/22 09:06 Freq: NEEDED Status: Active Protocol: Document 08/24/22 10:52 AW (Rec: 08/24/22 12:39 AW [id number]) Physical Therapy Treatment Education Education Provided Weight Bearing Status,Safety Other Treatments Other Treatment Performed Educated pt and her family extensively on weightbearing status RUE and LLE. M7 PT-IP Assessment and Plan Start: 08/24/22 09:06 Freq: NEEDED Status: Active Protocol: Document 08/24/22 10:52 AW (Rec: 08/24/22 12:39 AW [id number]) PT Summary Assessment and Plan Potential Rehabilitation Potential Good Status of Condition at Evaluation Evolving Summary Impairments Pain,ROM,Strength,Balance, Cognition,Bed Mobility, Transfers,Gait,Activity Tolerance Assessment Summary Sue is an 81 yo woman admitted after a fall which resulted in left trimalleolar ankle fracture, right olecranon fracture, and right rib fractures (2-6). Today, she is POD1 s/p ORIF of her fractures and is to maintain PWB LLE 25% and no more than 2 pounds RUE (essentially NWB). PLOF: Pt states she is independently mobile and manages her ADL's without assist. She is right hand dominant. She lives on the main level of a 2-story home with her daughter and son-in- law. CLOF: Pt understands her weightbearing status and presents with some confusion and anxiety but ultimately consents to PT assessment. She required max assist x 2 for bed mobility and was limited due to effects of pain medication. Sitting balance was challenged, requiring min- mod assist intermittently. Of note, pt complained of neck pain and hesitated to rotate her neck. Cervical CT was clear at time of admission. Hospitalist was informed. Given her weightbearing restrictions and need for high level of mobility assist, pt will require SNF rehab to progress her strength and mobility independence. Goals Bed Mobility Goal Minimal Assistance Other Goals - Pt will complete slide board transfer with min assist - Pt will complete stand pivot transfer with LRAD and min assist Days to Meet Goals 10 Frequency of Treatment Frequency Of Treatment Once a Day Treatment Plan Physical Therapy Treatment Plan Bed Mobility Training,Transfer Training,Gait Training, Therapeutic Exercise,Balance Retraining,Post Op Education, Discharge Planning,Hot or Cold Pack,Neuromuscular Re-ed Other Recommendations and Next Treatment bed mobility and transfers ( Focus slide board recommended initially, progressing to sit to stand and pivot transfers as able) Weight Bearing Status Allowed Weight Bearing Amount (enter % Per ortho note - RUE: 2 lb or #) (%) weight limit right upper extremity will stay in resting splint for 2 weeks then will return for suture and staple removal. And will go into sling. They also have resting 90 degree splint up to 4 weeks. We will start therapy for gentle range of motion after the 2 week wound check. LLE: 25% weight-bearing in splint for transfers. Recommendations To Nursing Amount of Assist Needed Mechanical Lift Discharge Recommendations PT Discharge Recommendations SNF Rehab Transportation Needs at Discharge Wheelchair/Cabulance
--- NOTE | 2022-08-24 10:52 | OT.IP.EVAL ---
Current Diagnoses Unspecified fracture of lower end of right humerus, initial encounter for closed fracture (08/20/22) Unspecified fracture of shaft of left tibia, initial encounter for closed fracture (08/20/22) Other fracture of left lower leg, initial encounter for closed fracture (08/20/22) custodial (current) use of anticoagulants (08/20/22) Surgery Performed Operation Date: 08/23/22 10:00 Actual Procedures p ORIF Ankle Fracture(Left) - Lorrie Zambrano MD s ORIF olecranon fracture(Right) - Lorrie Zambrano MD Operation Date: 08/24/22 11:00 <No data on this case meets the specified criteria> Past Medical History (Last Reviewed 08/24/22 @ 08:32 by Elmer Riojas PA-C) CAD (coronary artery disease) HTN (hypertension) Paroxysmal atrial fibrillation Type 2 diabetes mellitus Surgical History (Last Reviewed 08/24/22 @ 08:32 by Elmer Riojas PA-C) H/O coronary angioplasty Occupational Therapy Inpatient Evaluation/Re-Eval M1 PT/OT-IP Prior Functional Status Start: 08/24/22 09:06 Freq: NEEDED Status: Active Protocol: Document 08/24/22 10:52 AW (Rec: 08/24/22 12:39 AW [id number]) Medical Review Prior Functional Status Medical History Reviewed Yes Communication Pt is an effective verbal communicator. Mobility and Gait Independent without AD. She denies falls in the past one year. Activities of Daily Living and IADL's Pt is right hand dominant. She is typically independent with all ADL's. Social History Household Members family Living Arrangements House Number of Floors (Floors) Two Floors Number of Stairs To Enter/Railing? 1 platform step and short threshhold to enter the home. Pt's family states this entrance would be accessible with a standard manual wheelchair. Pt stays on the main Home Environment High Toilet,Walk in Shower Home Equipment Hand Held Shower,Grab Bars In Shower Additional Social History Comment Pt's daughter and son-in-law live in the upstairs of her house and provide some assist. Her spouse ~a month ago. M2 OT-IP Current Condition Start: 08/24/22 12:05 Freq: Status: Active Protocol: Document 08/24/22 09:20 CCC (Rec: 08/24/22 12:40 [facility] [id number]) Occupational Therapy Current Condition Current Condition Evaluation Date 08/24/22 Treatment Diagnosis Fall, s/p ORIF Left ankle, ORIF right olecranon fx Diagnosis Onset Date 08/20/22 Weight Bearing Status Allowed Weight Bearing Amount (enter % 2lb weight limit RUE- resting or #) (%) splint for 2 weeks LLE 25% weight bearing M3 OT- IP Subjective and Pain Start: 08/24/22 12:05 Freq: Status: Active Protocol: Document 08/24/22 09:20 [facility] (Rec: 08/24/22 12:40 [facility] [id number]) OT- Subjective Occupational Therapy Visit Type Type Initial Evaluation Visit Start Time 09:20 Visit Stop Time 10:52 Total Visit Minutes 52 Notes Pt seen [phone] and [id number]. Occupational Therapy Visit Comments Patient Comments Pt agreed to have pain medication and able to do OT eval with PT as pt needing extensive skilled assisted for mobility needs. Patient/Caregiver Goals To get better OT Pain Assessment Pain When Pain Assessed At Rest Pain Present Pain Present Pain Reported M4 OT- IP ADL's Start: 08/24/22 12:05 Freq: Status: Active Protocol: Document 08/24/22 09:20 [facility] (Rec: 08/24/22 12:40 [facility] [id number]) OT [id number] Comments OT Self-Feeding Comments Pt will need assist for set-up of tray as pt only able to use her left hand to eat which is her non-dominant hand. OT ADL-Grooming General Evaluation Grooming Ability Maximum Assistance Areas Needing Assistance Combing/Brushing Hair Comments OT Grooming Comments Pt able to sit at edge of the bed from close SBA to MODA as OT able to assist to brush and help de-tangle her hair. OT ADL-Oral Care Comments Oral Care Comments not performed OT ADL-Dressing General Eval Upper Body Dressing Ability Total Assistance Lower Body Dressing Ability Total Assistance Areas Needing Assistance Socks Comments OT Dressing Comments Pt will need MAX/TOtal asisst due to weight limit for RUE 2lbs and LLE 25% weight bearing. OT ADL-Toileting General Evaluation Toileting Ability Total Assistance Comments OT Toileting Comments [place] in place OT ADL-Bathing Comments OT Bathing Comments Sponge bath more appropriate at this time. M5 OT- IP IADL's Start: 08/24/22 12:05 Freq: Status: Active Protocol: Document 08/24/22 09:20 [facility] (Rec: 08/24/22 12:40 [facility] [id number]) OT-Instrumental Activities of Daily Living Home Safety Awareness Home Safety Comments Pt a bit groggy from pain medications. Pt has a supportive family to be able to assist pt for all her needs. Medication Management Medication Management Caregiver Provides Supervision Money Management Money Management Caregiver Provides Assistance Ironworker Ironworker Caregiver Provides Assist M6 OT- IP Functional Cognition Start: 08/24/22 12:05 Freq: Status: Active Protocol: Document 08/24/22 09:20 [facility] (Rec: 08/24/22 12:40 [facility] [id number]) Cognitive Factors Limiting Selfcare Function Cognitive Ability Level of Alertness Alert,Drowsy Patient Orientation Name,Place,Situation Attention Span Ability Capable of Focused Attention, Capable of Sustained Attention Ability to Follow Commands Able to Follow One Step Commands with Increased Time, Able to Follow One Step Commands with Repetition Cognitive Comments Cognitive Assessment Comments Pt a bit groggy from pain medications and able to follow simple concrete commands for bed mobility and ADL needs. OT- Vision and Hearing OT- Hearing Assessment OT- Hearing Assessment WFL OT- Vision Assessment Visual Acuity Glasses For Reading Vision Assessment Comments Pt able to more her eyes and read the clock but states not totally clear. Pt having difficulty to move her head and tends to move her eyes instead to see. M7 OT- IP Mobility and Balance Start: 08/24/22 12:05 Freq: Status: Active Protocol: Document 08/24/22 09:20 [facility] (Rec: 08/24/22 12:40 [facility] [id number]) OT- Bed Mobility Assessment Supine to Sit Supine to Sit Assist Maximum Assistance,2 Person Assistance Sit to Supine Sit to Supine Assist Maximum Assistance,2 Person Assistance OT-Transfer Assessment Comments Mobility Comments MAXA x2 and heavy use of green pad to assist to move the pt and with HOB up. Pt reminded not to use her RUE to assist. OT- Balance Assessment Sitting Balance and Reactions Static Sitting Balance Ability Poor Dynamic Sitting Balance Ability Poor Comments Other Balance Tests/Deviations/Treatment Pt needing from close SBA and : after tiring, and once pain medications kicked in pt leaning posteriorly and needing MODA for sitting balance. M8 OT- IP Objective Assessments Start: 08/24/22 12:05 Freq: Status: Active Protocol: Document 08/24/22 09:20 [facility] (Rec: 08/24/22 12:40 [facility] [id number]) OT Gross Range of Motion Upper Extremity Range of Motion Assessment Right Impaired OT- Coordination Assessment Upper Extremity Finger to Nose Test Right UE Impaired Comments Coordination Comments Pt able to move her right thumb and after gentle PROM for right hand able to move her fingers to to 1/4 fist. OT-Muscle Tone Assessment Muscle Tone WNL Yes OT Sensation Assessment Edema Edema Present Edema Comments Right hand swollen and able to elevate her hand on pillows and able to do gentle rom for her hand. M9 OT- IP Assessment and Plan Start: 08/24/22 12:05 Freq: Status: Active Protocol: Document 08/24/22 09:20 [facility] (Rec: 08/24/22 12:40 [facility] [id number]) OT Summary Assessment and Plan Potential Rehabilitation Potential Good Analytic Complexity at Evaluation High Summary OT Impairments Pain,Range of Motion,Strength, Balance,Coordination, Functional Mobility,Self- Feeding,Grooming,Dressing, Toileting,Bathing,Toilet Transfers,Shower Transfers, Activity Tolerance Progress Towards Goals Slow Progress due to Pain,Slow Progress due to Medical Issues,Slow Progress due to Activity Tolerance,Slow Progress due to Cognition Assessment Summary Pt HIGH complexity and main barriers are pain, step at home, and now dependent for all needs due to recent fall and s/p ORIF Right Olecranon and Left ankle in addition to rib fractures. Pt will benefit from skilled rehab. Pt has a very supportive family who have just moved in with her as her just recently passed. Pt to go to skilled rehab when medically stable. Goals Grooming Goal Standby Assistance Dressing Goal Moderate Assistance Toileting Goal Moderate Assistance Bathing Goal Moderate Assistance Toilet Transfer Goal Moderate Assistance Shower Transfer Goal Moderate Assistance Days to Meet Goals 20 Frequency of Treatment Frequency Of Treatment Once a Day Treatment Plan OT Treatment Plan ADL Training,Functional Mobility,Patient/Family Education,Discharge Planning Other Treatment Recommendations and Next sliding board transfer to drop Treatment Focus arm commode Discharge Recommendations OT Discharge Recommendations SNF Rehab Transportation Needs at Discharge Wheelchair/Cabulance
--- NOTE | 2022-08-24 11:57 | CM.DPC ---
DCP/continued: Reviewed EMR at this time patient is not medically stable for d/c. Met with patient and family at bedside. Current plan is for patient to go to [facility] when medically stable. Placed call to November at [facility], she reports they do have bed for patient when she is ready to d/c. PASRR completed. P: [facility] when medically stable. MARION
[2022-08-24] MEDS: polyethylene glycoL 3350 17 GM POWD.PACK PO (12:01)
[2022-08-24] MEDS: SENNOSIDES 8.6 MG TABLET PO ×2 (12:02→21:45)
[2022-08-24] MEDS: OXYCODONE IR 5 MG TABLET 10 MG PO ×2 (15:06→23:23)
[2022-08-24] MEDS: WARFARIN 5 MG TABLET PO (17:44)
[2022-08-24] MEDS: ACETAMINOPHEN 325 MG TABLET 650 MG PO (21:45)
[2022-08-24] MEDS: ATORVASTATIN 20 MG TABLET PO (21:45)
[2022-08-25] VITALS (7 sets, daily range): BP systolic 114–135; BP diastolic 63–88; PULSE 65–96; RESP 17–18; TEMP 36.1–36.5; O2SAT 94–98
[2022-08-25] MEDS: methocarbamoL 500 MG TABLET 750 MG PO (00:15)
[2022-08-25] MEDS: OXYCODONE IR 5 MG TABLET 10 MG PO ×3 (02:54→11:57)
[2022-08-25 05:27] LABS: Add Manual Diff / Slide Review NO; Basophils Absolute Auto 0 /uL (0-100); Basophils Percent Auto 0.2 % (0-2); Eosinophils Absolute Auto 300 /uL (0-450); Eosinophils Percent Auto 2.9 % (2-4); Hematocrit 29.3 % (36-46); Hemoglobin 9.8 g/dL (12.0-16.0); Lymphocytes Absolute Auto 1600 /uL (1100-4500); Lymphocytes Percent Auto 13.4 % (25-40); Mean Corpuscular HGB Conc 33.5 % (30-36); Mean Corpuscular Hemoglobin 31.4 PG (26-34); Mean Corpuscular Volume 93.7 fL (80-100); Monocytes Absolute Auto 1100 /uL (0-900); Monocytes Percent Auto 9.4 % (3-14); Neutrophils Absolute Auto 8900 /uL (1500-7000); Neutrophils Percent Auto 74.1 % (50-75); Platelet Count 197 X10^3/uL (150-400); Red Blood Cell Count 3.12 X10^6/uL (4.0-5.2); Red Cell Distribution Width 14.9 % (11.6-14.8)
[2022-08-25 05:50] LABS: BUN Creatinine Ratio 25.9 (6-22); Blood Urea Nitrogen 21 mg/dL (7-17); Calcium 7.7 mg/dL (8.4-10.2); Carbon Dioxide 28 mmol/L (22-32); Chloride 101 mmol/L (98-107); Estimated Glomerular Filt Rate > 60 mL/min (>60); Glucose 172 mg/dL (80-110); HEMOLYSIS < 15 (0-50); Magnesium 1.8 mg/dL (1.6-2.3); Potassium 4.1 mmol/L (3.4-5.1); Sodium 133 mmol/L (137-145)
[2022-08-25 06:34] LABS: INR 1.3 (0.9-1.3); Prothrombin Time 15.4 SECONDS (10.1-12.7)
[2022-08-25] MEDS: DOCUSATE 100 MG CAPSULE PO (08:27)
[2022-08-25] MEDS: SENNOSIDES 8.6 MG TABLET PO (08:27)
[2022-08-25] MEDS: GABAPENTIN 100 MG CAPSULE 200 MG PO ×2 (08:27→14:05)
[2022-08-25] MEDS: ENOXAPARIN 40 MG/0.4 ML SYRINGE SUBCUT (08:27)
[2022-08-25] MEDS: dilTIAZem CD 240 MG CAP PO (08:27)
[2022-08-25] MEDS: FUROSEMIDE 20 MG TABLET 5 MG PO (08:27)
[2022-08-25] MEDS: polyethylene glycoL 3350 17 GM POWD.PACK PO (08:28)
[2022-08-25] MEDS: INSULIN LISPRO 100 UNIT/ML 3ML VIAL SUBCUT ×2 (08:28→11:59)
[2022-08-25] MEDS: INSULIN NPH 100 UNIT/ML 10ML VIAL 15 UNIT SUBCUT ×2 (08:30→14:05)
--- NOTE | 2022-08-25 09:02 | P.PN_ITS ---
Subjective Subjective Date Patient Seen: 08/25/22 Time Patient Seen: 09:03 Interval history: Patient states she is still having moderate to severe pain. Denies fever or chills. No nausea or vomiting. Exam Vital Signs (past 8 hours): - 08/25/22 03:00 08/25/22 02:53 08/25/22 05:11 Temperature 97.2 F L 97.7 F Pulse Rate 96 H 79 Respiratory Rate 18 18 Blood Pressure 135/69 114/63 Pulse Oximetry 94 94 96 Oxygen Delivery Method Room Air Oxygen Flow Rate 2 1 08/25/22 07:53 08/25/22 07:53 08/25/22 08:39 Temperature 97.3 F L Pulse Rate 79 Respiratory Rate 17 Blood Pressure 123/67 Pulse Oximetry 98 96 Oxygen Delivery Method Nasal Cannula Nasal Cannula Oxygen Flow Rate 1 1 Fraction of Inspired Oxygen 24 SaO2/FiO2 Ratio 391 Oxygen Delivery Method Nasal Cannula Oxygen Flow Rate 1 Narrative Exam Narrative: 81-year-old female resting comfortably in bed in no apparent distress. Right arm is in a splint. Able to move all fingers. Able to flex and extend her wrist. Good capillary refill. Sensation grossly intact to light touch right upper extremity. Left lower extremities in his splint. She is able to wiggle her toes. She has good capillary refill left lower extremity. Sensation grossly intact to light touch. Const General: cooperative and comfortable Nutritional Appearance: average body habitus Orientation: alert Resp Effort & Inspection: normal respiratory effort and able to speak in complete sentences Objective Labs 08/25/22 04:40 08/25/22 04:40 Labs: Laboratory Results - last 24 hr 08/25/22 08/25/22 08/25/22 04:40 04:40 04:40 WBC 12.0 H RBC 3.12 L Hgb 9.8 L Hct 29.3 L MCV 93.7 MCH 31.4 MCHC 33.5 RDW 14.9 H Plt Count 197 Neut % (Auto) 74.1 Lymph % (Auto) 13.4 L [place] % (Auto) 9.4 Eos % (Auto) 2.9 Baso % (Auto) 0.2 Neut # (Auto) 8900 H Lymph # (Auto) 1600 [place] # (Auto) 1100 H Eos # (Auto) 300 Baso # (Auto) 0 PT 15.4 H INR 1.3 Sodium Potassium Chloride Carbon Dioxide BUN Creatinine Estimated GFR BUN/Creatinine Ratio Glucose Calcium Magnesium 1.8 08/25/22 04:40 WBC RBC Hgb Hct MCV MCH MCHC RDW Plt Count Neut % (Auto) Lymph % (Auto) [place] % (Auto) Eos % (Auto) Baso % (Auto) Neut # (Auto) Lymph # (Auto) [place] # (Auto) Eos # (Auto) Baso # (Auto) PT INR Sodium 133 L Potassium 4.1 Chloride 101 Carbon Dioxide 28 BUN 21 H Creatinine 0.81 Estimated GFR > 60 BUN/Creatinine Ratio 25.9 H Glucose 172 H Calcium 7.7 L Magnesium [facility] Medical History CAD (coronary artery disease) HTN (hypertension) Paroxysmal atrial fibrillation Type 2 diabetes mellitus Surgical History H/O coronary angioplasty Family History Father CAD (coronary artery disease) Mother Cancer Social History household members: family Smoking Status: Never smoker alcohol intake: current Assessment & Plan Post-op Postoperative Procedures: Procedures Operation Date: 08/23/22 10:00 Actual Procedure Side Surgeon p ORIF Ankle Fracture Left Lorrie Zambrano MD s ORIF olecranon fracture Right Lorrie Zambrano MD Operation Date: 08/24/22 11:00 <No data on this case meets the specified criteria> Postoperative day: 2 Postoperative status: marginal pain control Postoperative plan narrative: 1. 2 lb weight limit right upper extremity will stay in resting splint for 2 weeks then will return to [facility]. for suture and staple removal. And will go into sling. They also have resting 90 degree splint up to 4 weeks. We will start therapy for gentle range of motion after the 2 week wound check. 2. Left lower extremity 25% weight-bearing in splint for transfers. Follow-up in 2 weeks for wound check and suture removal. If swelling then sutures will be maintained longer. Can go into walking boot at 1st follow-up may advance to 50% weight-bearing at 2 weeks postop continue 50% weight-bearing through 6 weeks, then as tolerated Will resume her baseline warfarin. Discharge per primary when safe for home or rehab. Quality VTE Deep Vein Thrombosis/Pulmonary Embolism Present on Admission: No
--- NOTE | 2022-08-25 09:30 | PT.IPTN ---
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 (08/20/22) Surgery Performed Operation Date: 08/23/22 10:00 Actual Procedures p ORIF Ankle Fracture(Left) - Lorrie Zambrano MD s ORIF olecranon fracture(Right) - Lorrie Zambrano MD Operation Date: 08/24/22 11:00 <No data on this case meets the specified criteria> Physical Therapy Treatment Note M2 PT-IP Current Condition Start: 08/24/22 09:06 Freq: NEEDED Status: Active Protocol: Document 08/24/22 10:52 AW (Rec: 08/24/22 12:39 AW [id number]) Physical Therapy Current Condition Current Condition Evaluation Date 08/24/22 Treatment Diagnosis L trimalleolar fx and R olecranon fx; R 2-6 rib fx; impaired mobility Onset Date 08/20/22 M3 PT-IP Subjective Start: 08/24/22 09:06 Freq: NEEDED Status: Active Protocol: Document 08/25/22 11:06 TS (Rec: 08/25/22 11:50 TS [id number]) Subjective Physical Therapy Visit Type Type Treatment Note Visit Start Time 09:30 Visit Stop Time 10:02 Total Visit Minutes 32 Notes BP:137/78 sitting EOB Physical Therapy Visit Comments Patient Comments Pt reports having a terrible night last night and is hesitant to mobilize this morning due to pain. She c/o pain in her neck due to bruising and her broken bones. She is agreeable to PT session. Therapy Pain Assessment Pain When Pain Assessed During Mobility Pain Present Pain Present Pain Reported Location Right Arm Description Aching,Acute Pain Behaviors Facial Grimacing,Wincing Pain Management Techniques Apply Cold,Distraction,Re- positioning,Timing of Activity with Medications M4 PT-IP Mobility and Gait Start: 08/24/22 09:06 Freq: NEEDED Status: Active Protocol: Document 08/25/22 11:06 TS (Rec: 08/25/22 11:50 TS [id number]) PT-Bed Mobility Assessment Supine to Sit Supine to Sit Maximum Assistance,2 Person Assistance,Head of Bed Elevated,Bedrails Sit to Supine Sit to Supine Moderate Assistance,Maximum Assistance,2 Person Assistance Scooting Scooting to Edge of Bed Maximum Assistance Scooting Up and Down in Bed Maximum Assistance PT-Transfer Assessment Comments Mobility Comments Pt found resting in bed, daughter and son-in-law present, agreeable to PT session. Provided her education on WBering status for RUE and LLE, brought scale to demonstrate amount of weight she can use on LLE. She performed supine to sit MaxA x2 with LUE handrail support for uprighting trunk and LE's off EOB. She required cues for hand support on bed to support self in sitting and core act progressing from [place] to CGA. She c/o some dizziness sitting EOB, BP unremarkable. She performed sit to supine ModA for LE's back into bed but MaxA for trunk. She required MaxA x2 and LUE handrail support for scooting to HOB. Pt left in bed, call light nearby, family in room and requesting a bath . Gait Assessment Comments Gait Comments Unable this date. PT-Balance Assessment Sitting Balance and Reactions Static Sitting Balance Ability Fair Dynamic Sitting Balance Ability Fair Comments Other Balance Tests/Deviations/Treatment Pt initally required [place] to : maintain midline, progressed to CGA with LUE support on bed and cues for core act. M5 PT-IP Objective Assessments Start: 08/24/22 09:06 Freq: NEEDED Status: Active Protocol: Document 08/24/22 10:52 AW (Rec: 08/24/22 12:39 AW [id number]) Orientation Orientation/Cognition Level of Alertness Confusional State Orientation Name,Place,Situation Language Function Ability No Deficits Noted Safety Awareness Understands Safety Issues Comments Pt presents with increased confusion and anxiety. She benefits from reassurance and cues for measured breathing. Gross Range of Motion Upper Extremity ROM Assessment Right Impaired Impairments Pt in splint with swollen hand /fingers Lower Extremity ROM Assessment Left Impaired Impairments Able to flex/extend toes on a limited basis Strength Upper Extremity Strength Assessment Right Impaired Lower Extremity Strength Assessment Left Impaired Comments Strength Comments R hip flexion 4/5. R knee flex /ext 4+/5. R ankle 4+/5 DF. L hip flexion 4-/5. Sensation Assessment Sensation Gross Sensation WNL M6 PT-IP Treatment Start: 08/24/22 09:06 Freq: NEEDED Status: Active Protocol: Document 08/25/22 11:06 TS (Rec: 08/25/22 11:50 TS [id number]) Physical Therapy Treatment Education Education Provided Weight Bearing Status,Safety Other Treatments Other Treatment Performed Educated pt on WBering status on RUE and LLE. Demonstrated amount of wbering with scale for LLE. M7 PT-IP Assessment and Plan Start: 08/24/22 09:06 Freq: NEEDED Status: Active Protocol: Document 08/25/22 11:06 TS (Rec: 08/25/22 11:50 TS [id number]) PT Summary Assessment and Plan Potential Rehabilitation Potential Good Status of Condition at Evaluation Evolving Summary Impairments Pain,ROM,Strength,Balance, Cognition,Bed Mobility, Transfers,Gait,Activity Tolerance Assessment Summary Sue remains MaxA x2 for bed mobility due to multiple fractures and her pain. She is unable to stand or transfer with slideboard at this time due to fractures and pain. She progressed her sit to supine requiring less assistance for LE's from MaxA to ModA from previous session. PT continues to recommend SNF to improve her functional mobility and strength. She remains very motivated to improve and get back to her daily life. Goals Bed Mobility Goal Minimal Assistance Other Goals - Pt will complete slide board transfer with min assist - Pt will complete stand pivot transfer with LRAD and min assist Days to Meet Goals 10 Frequency of Treatment Frequency Of Treatment Once a Day Treatment Plan Physical Therapy Treatment Plan Bed Mobility Training,Transfer Training,Gait Training, Therapeutic Exercise,Balance Retraining,Post Op Education, Discharge Planning,Hot or Cold Pack,Neuromuscular Re-ed Other Recommendations and Next Treatment bed mobility and transfers ( Focus slide board recommended initially, progressing to sit to stand and pivot transfers as able) Weight Bearing Status Allowed Weight Bearing Amount (enter % Per ortho note - RUE: 2 lb or #) (%) weight limit right upper extremity will stay in resting splint for 2 weeks then will return for suture and staple removal. And will go into sling. They also have resting 90 degree splint up to 4 weeks. We will start therapy for gentle range of motion after the 2 week wound check. LLE: 25% weight-bearing in splint for transfers. Recommendations To Nursing Amount of Assist Needed 2 Person Assist,Mechanical Lift Discharge Recommendations PT Discharge Recommendations SNF Rehab Transportation Needs at Discharge Wheelchair/Cabulance
[2022-08-25 11:11] LABS: COVID19 -Nasal RAPID Negative (Negative)
[2022-08-25] MEDS: ACETAMINOPHEN 325 MG TABLET 650 MG PO (11:57)
--- NOTE | 2022-08-25 12:31 | CM.DPC ---
DCP Discharge SNF Per MD, pt is medically stable to d/c to SNF today and no identified barriers to discharge. JOEY called [facility] admissions and confirmed they can still accept pt today and can transport around 1400. SW faxed signed med list, scripts, PASRR, orders to [facility] to review and RN obtained updated COVID negative swab and just awaiting d/c summary to be finalized. 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 SW provided RN report number to call. Plan: Patient to d/c to [facility] rehab prior to safe return home. MEENAKSHI Mckeon
--- NOTE | 2022-08-25 13:38 | P.DS_ITS ---
History of Present Illness History of Present Illness Date Patient Seen: 08/25/22 Time Patient Seen: 13:38 Chief complaint: fall, Narrative: This is an 81 year old fmeale with PMH of CAD, HTN, pafib, DM2 on insulin, prior CVA who presents after a mechanical fall. She does not recall the fall itself. Family at bedside report speaking to witness, who said that two larger dogs came up to her and encircles around her when she fell. It is still unclear if she hit her head. Patient currently feels sore all over, including all extremities and R chest wall. She denies recent chest pain, shortness of breath, dyspnea on exertion, palpitations, lower extremity edema. Family does report she has been sharp all week since they have been staying with her, but today in the ER she is a bit confused and slow. In the emergency room, the patient was initially hypertensive but improved with pain control. She initially appeared to be in sinus rhythm, but did develop atrial flutter with RVR. She was given her home dose of diltiazem which she probably missed this morning. A right olecranon fracture, as well as a left tibia and fibula fracture. Orthopedic surgery was consulted and plans to fix at least 1 of her extremities tomorrow. EKG showed atrial flutter without evidence of acute ischemia. She did have a CT of her head which showed no bleeding. Laboratory evaluation was unremarkable except for her INR of 2.2, as well as a glucose of 296. Troponin was negative. Discharge Providers Provider Date of admission: 08/20/22 17:17 Discharge Date: 08/25/22 Primary care physician: Fariha Rollins MD Consults: 08/20/22 18:23 Consult to Orthopedic Surgery Routine Comment: Consulting Provider: Lorrie Zambrano Reason for consultation: tib / fib fx, olecranon fx Has provider been notified: Yes 08/21/22 08:35 Consult to Pharmacy Routine Comment: Resume warfarin pls. Surgery cancelled 08/22/22 07:34 Consult to Pharmacy Routine Comment: Surgery in am, holding warfarin 08/23/22 13:53 Consult to Discharge Planning Routine Comment: Consult to Physical Therapy Evaluate & Treat Comment: 25% weight-bearing left lower extremity. 2# RUE Physician Instructions: Evaluate and Treat 08/24/22 08:37 Consult to Occupational Therapy Evaluate & Treat Comment: Physician Instructions: Evaluate and treat Discharge provider: Calixto Bolden DO Summary Hospital Course Discharge Diagnosis: 1. Left tib-fib fracture, right olecranon fracture after mechanical fall, with newly identified right 2nd through 6th rib fractures Patient is now postop day 1 from ORIF of her left tib-fib fracture and right olecranon fracture.? Pain meds PRN with laxatives. Continue working on good pulmonary hygiene with rib fractures. Working with therapies and will likely ne ed SNF. 2. Paroxysmal atrial fibrillation/atrial flutter Restarted warfarin postop on 08/23 with lovenox bridge as INR 1.2. Remains on telemetry.? Presently rate controlled.?Check daily INR's. 4. Coronary artery disease Continue usual home medications 5.? Diabetes mellitus type 2, insulin dependent At baseline she is on NPH 15 units b.i.d..? Blood sugars still quite high so will raise to 15 units NPH TID. Continue fingersticks and sliding scale.? Controlled carb diet. 6. Hypertension Blood pressures remain normotensive.? Lisinopril has been held in the setting surgery. 7. Hyperlipidemia Continue atorvastatin. 8. Possible concussion CT scan of the head was unremarkable.? Will continue monitoring. Hospital Course: Fell while walking dog and broke left leg, right elbow and several ribs. Warfarin was held for surgery and INR 1.2 after so started on lovenox bridge until therapeutic. PT rec SNF. He BG were high so home NPH changed to TID from BID with better control. Time Spent with Patient Time spent: Greater than 30 minutes Exam Vital Signs (past 8 hours): - 08/25/22 07:53 08/25/22 07:53 08/25/22 08:39 Temperature 97.3 F L Pulse Rate 79 Respiratory Rate 17 Blood Pressure 123/67 Pulse Oximetry 98 96 Oxygen Delivery Method Nasal Cannula Nasal Cannula Oxygen Flow Rate 1 1 08/25/22 11:00 08/25/22 11:44 Temperature 97.0 F L Pulse Rate 65 Respiratory Rate 17 Blood Pressure 126/88 Pulse Oximetry 96 94 Oxygen Delivery Method Nasal Cannula Oxygen Flow Rate 1 1 Fraction of Inspired Oxygen 24 SaO2/FiO2 Ratio 391 Oxygen Delivery Method Nasal Cannula Oxygen Flow Rate 1 Narrative Exam Narrative: GEN: appears in pain, NAD HEENT:NC, Face symmetric, flushed cheeks CHEST: Respiratory excursions symmetric, CTAB CV:? Irregularly irregular, no M/R/G ABD:? Slightly Firm, moderately distended, nontender, BT present in all 4 quadrants, no appreciable organomegaly or masses EXTR: warm, well perfused, no C/C/E, postoperative dressings to right and left leg SKIN: warm and dry, no rash NEURO: Nonfocal, alert and oriented x3 Objective Labs 08/25/22 04:40 08/25/22 04:40 Labs: Laboratory Results - last 24 hr 08/25/22 08/25/22 08/25/22 04:40 04:40 04:40 WBC 12.0 H RBC 3.12 L Hgb 9.8 L Hct 29.3 L MCV 93.7 MCH 31.4 MCHC 33.5 RDW 14.9 H Plt Count 197 Neut % (Auto) 74.1 Lymph % (Auto) 13.4 L [place] % (Auto) 9.4 Eos % (Auto) 2.9 Baso % (Auto) 0.2 Neut # (Auto) 8900 H Lymph # (Auto) 1600 [place] # (Auto) 1100 H Eos # (Auto) 300 Baso # (Auto) 0 PT 15.4 H INR 1.3 Sodium Potassium Chloride Carbon Dioxide BUN Creatinine Estimated GFR BUN/Creatinine Ratio Glucose Calcium Magnesium 1.8 SARS-CoV-2 (PCR) 08/25/22 08/25/22 04:40 10:40 WBC RBC Hgb Hct MCV MCH MCHC RDW Plt Count Neut % (Auto) Lymph % (Auto) [place] % (Auto) Eos % (Auto) Baso % (Auto) Neut # (Auto) Lymph # (Auto) [place] # (Auto) Eos # (Auto) Baso # (Auto) PT INR Sodium 133 L Potassium 4.1 Chloride 101 Carbon Dioxide 28 BUN 21 H Creatinine 0.81 Estimated GFR > 60 BUN/Creatinine Ratio 25.9 H Glucose 172 H Calcium 7.7 L Magnesium SARS-CoV-2 (PCR) Negative [facility] Medical History CAD (coronary artery disease) HTN (hypertension) Paroxysmal atrial fibrillation Type 2 diabetes mellitus Surgical History H/O coronary angioplasty Family History Father CAD (coronary artery disease) Mother Cancer Social History household members: family Smoking Status: Never smoker alcohol intake: current Discharge Plan Discharge Plan Transfer to: [facility] Discharge orders & Medications Discharge Orders: Discharge (Order); Ordered 08/25/22 Ordered By: Calixto Bolden Prescriptions: New enoxaparin [Lovenox] 40 mg/0.4 mL Syringe 40 mg SUBCUT DAILY 30 Days Qty: 4 0RF Rx Instructions: until INR levels therapeutic Humulin N NPH U-100 Insulin 100 unit/mL Suspension 15 unit SUBCUT TID Qty: 10 0RF oxycodone 5 mg Tablet 10 mg PO Q3H PRN (Reason: Pain, Moderate (4-6)) Qty: 3 0RF lidocaine [Lidoderm] 5 % adhesive patch,medicated 1 patch topical DAILY Qty: 30 0RF Rx Instructions: leave on most painful area for up to 12 hrs Continued warfarin 5 mg tablet 5 mg PO DAILY Rx Instructions: 2.5mg on tuesdays atorvastatin [Lipitor] 20 MG tablet 20 mg PO DAILY Qty: 0 furosemide [Lasix] 20 mg tablet 5 mg PO QAM allopurinol 100 mg Tablet 200 mg PO DAILY metformin 1,000 mg Tablet 500 mg PO BID lidocaine HCl 2 % Cream 1 applic TOPICAL TID PRN (Reason: pain) gabapentin 300 mg Capsule 200 mg PO TID aspirin 325 mg Tablet 325 mg PO DAILY diltiazem HCl [Cardizem CD] 240 mg capsule,extended release 24hr 240 mg PO DAILY Qty: 20 0RF lisinopril 40 mg tablet 20 mg PO DAILY Discontinued Novolin N NPH U-100 Insulin 100 unit/mL Suspension 15 unit SUBCUT BID Rx Instructions: increase as directed Follow up/Referrals: Lorrie Zambrano MD [Physician] - ([facility] to schedule 2 weeks follow up ) Fariha Rollins MD [Physician] - 2 Weeks ([facility] to schedule ) Fariha Rollins MD [Primary Care Provider] - Diet/Activity/Treatments Activity: 1. 2 lb weight limit right upper extremity will stay in resting splint for 2 weeks then will return to [facility] for suture and staple removal. And will go into sling. They also have resting 90 degree splint up to 4 weeks. We will start therapy for gentle range of motion after the 2 week wound check. 2. Left lower extremity 25% weight-bearing in splint for transfers. Follow-up in 2 weeks for wound check and suture removal. If swelling then sutures will be maintained longer. Can go into walking boot at 1st follow-up may advance to 50% weight-bearing at 2 weeks postop continue 50% weight-bearing through 6 weeks, then as tolerated Visit Report/Discharge Packet Instructions: Blood Glucose, How to Check Your Blood Glucose, Complications of Type 2 Diabetes, Hypoglycemia, Type 2 Diabetes, Concussion, Taking Care of Your Diabetes When You Are Sick Stand Alone Forms: Patient Portal/API Discharge Data Primary Care Provider: Fariha Rollins VTE Deep Vein Thrombosis/Pulmonary Embolism Present on Admission: No
== END 2022-08-25 14:26 | DRG 493 ==
LOC: ED 16:57 → AC 17:18
PROVIDERS: Family Medicine; Orthopaedic Surgery Foot and Ankle Surgery; Student in an Organized Health Care Education/Training Program; Admitting Provider Internal Medicine; Emergency Provider Emergency Medicine; PCP Internal Medicine; Referring Provider Emergency Medicine; Visit Provider Internal Medicine
PROC: 0QSK04Z Reposition Left Fibula with Internal Fixation Device, Open Approach (ICD-10-PCS; principal; 2022-08-23 10:00)
PROC: 0RSL04Z Reposition Right Elbow Joint with Internal Fixation Device, Open Approach (ICD-10-PCS; 2022-08-23 10:00)
DX: S82.202A Unspecified fracture of shaft of left tibia, initial encounter for closed fracture (principal); I48.92 Unspecified atrial flutter; S22.41XA Multiple fractures of ribs, right side, initial encounter for closed fracture; S82.402A Unspecified fracture of shaft of left fibula, initial encounter for closed fracture; S52.021A Displaced fracture of olecranon process without intraarticular extension of right ulna, initial encounter for closed fracture; I48.0 Paroxysmal atrial fibrillation; I25.10 Atherosclerotic heart disease of native coronary artery without angina pectoris; E78.5 Hyperlipidemia, unspecified; I10 Essential (primary) hypertension; E11.65 Type 2 diabetes mellitus with hyperglycemia; S06.0X0A Concussion without loss of consciousness, initial encounter; W18.30XA Fall on same level, unspecified, initial encounter; Y93.K1 Activity, walking an animal; Z79.84 Long term (current) use of oral hypoglycemic drugs; Z79.4 Long term (current) use of insulin; Z79.01 Long term (current) use of anticoagulants; Z20.822 Contact with and (suspected) exposure to COVID-19; Z23 Encounter for immunization
CPT/HCPCS: 36415; 70450; 71045; 72125; 73000; 73030; 73070; 73080; 73600; 76000; 80048; 80053; 80320; 81001; 82550; 82553; 82962; 83036; 83605; 83690; 83735; 84484; 85025; 85610; 85730; 86900; 86901; 86927; 87635; 90471; 93005; 94760; 96374; 96375; 96376; 97162; 97167; 97530; 99284; C9803; 90715; J0690; J1170; J1650; J1815; J2270; J2405; J2704; J3010; J3475

== ENCOUNTER 2022-09-09 21:24 | Emergency (ER) | payer MEDICARE, SELFPAY ==
[2022-08-20 18:29] VITALS: BMI 26.9
[2022-09-09] VITALS (7 sets, daily range): BP systolic 123–155; BP diastolic 72–83; PULSE 82–91; RESP 16; TEMP 36.9; O2SAT 96–97; BMI 24.0
--- NOTE | 2022-09-09 21:44 | ED.GENADULT ---
HPI - General Adult General Chief complaint: Abdominal Pain Stated complaint: Constipation Time Seen by Provider: 09/09/22 21:31 Source: patient and EMS Mode of arrival: EMS History of Present Illness HPI narrative: Patient is an 81-year-old female who was sent over from the living facility where she is staying for evaluation of constipation. Is reported that the patient has been given a laxative and stool softeners without any improvement. States she has not had a bowel movement for the past couple days. She feels like her abdomen is distended and discomfort. No vomiting. She also states that she has not urinated since yesterday she except for very small amount earlier in the day. She states that she feels like there is stool in her rectum ready to come out but is unable to produce any stool. Related Data Home Medications Medication Instructions Recorded Confirmed atorvastatin 20 mg tablet (Lipitor) 20 mg PO DAILY ##0 08/22/17 08/21/22 allopurinol 100 mg tablet 200 mg PO DAILY 05/08/19 08/21/22 aspirin 325 mg tablet 325 mg PO DAILY 05/08/19 08/21/22 gabapentin 300 mg capsule 200 mg PO TID 05/08/19 08/21/22 lidocaine HCl 2 % topical cream 1 applic topical TID PRN pain 05/08/19 08/21/22 metformin 1,000 mg tablet 500 mg PO BID 05/08/19 08/21/22 lisinopril 40 mg tablet 20 mg PO DAILY 01/19/21 08/21/22 warfarin 5 mg tablet 5 mg PO DAILY 01/19/21 08/21/22 furosemide 20 mg tablet (Lasix) 5 mg PO QAM 08/21/22 08/21/22 Previous Rx's Medication Instructions Recorded diltiazem HCl 240 mg 240 mg PO DAILY #20 caps 05/08/19 capsule,extended release 24 hr (Cardizem CD) enoxaparin 40 mg/0.4 mL 40 mg (0.4 mL) SUBCUT DAILY 30 08/25/22 subcutaneous syringe (Lovenox) days #4 mL insulin NPH isoph U-100 human 100 15 unit (0.15 mL) SUBCUT TID #10 mL 08/25/22 unit/mL subcutaneous suspension (Humulin N NPH U-100 Insulin (isophane susp)) lidocaine 5 % topical patch 1 patch topical DAILY #30 ea 08/25/22 (Lidoderm) oxycodone 5 mg tablet 10 mg PO Q3H PRN Pain, Moderate 08/25/22 (4-6) #3 tabs Allergies Allergy/AdvReac Type Severity Reaction Status Date / Time No Known Drug Allergies Allergy Verified 08/20/22 10:28 Review of Systems Constitutional Constitutional: Reports system reviewed and no additional complaints, except as documented Gastrointestinal Gastrointestinal: Reports system reviewed and no additional complaints, except as documented Genitourinary Genitourinary: Reports system reviewed and no additional complaints, except as documented Hematologic/Lymphatic On Anticoagulants: No Patient History Medical History CAD (coronary artery disease) HTN (hypertension) Paroxysmal atrial fibrillation Type 2 diabetes mellitus Surgical History H/O coronary angioplasty Family History Father CAD (coronary artery disease) Mother Cancer Social History household members: family Smoking Status: Never smoker alcohol intake: current Smoking Status: Never smoker alcohol intake frequency: other Substance Use Type: does not use Exam Initial Vital Signs Initial Vital Signs: Vital Signs Temperature 98.4 F 09/09/22 21:28 Pulse Rate 84 09/09/22 21:28 Respiratory Rate 16 09/09/22 21:28 Blood Pressure 134/72 09/09/22 21:28 Pulse Oximetry 97 09/09/22 21:28 Oxygen Delivery Method Room Air 09/09/22 21:28 Const General: cooperative GI Inspection: distended Palpation: firm, No guarding and tender Skin General: no rashes or lesions noted Course Orders Ordered: ED Orders 09/09/22 21:54 Basic Metabolic Panel Stat Complete Blood Count AUTO DIFF Stat Vital Signs Vital signs: Vital Signs - 8 hr 09/09/22 21:28 09/09/22 21:28 09/09/22 21:30 Temperature 98.4 F Pulse Rate 84 91 H Respiratory Rate 16 Blood Pressure 134/72 134/72 Pulse Oximetry 97 97 Oxygen Delivery Method Room Air 09/09/22 21:30 09/09/22 21:31 03/29/23 21:31 Temperature Pulse Rate 90 86 Respiratory Rate Blood Pressure 155/75 H Pulse Oximetry 97 96 Oxygen Delivery Method 09/09/22 22:26 09/09/22 22:27 09/09/22 22:27 Temperature Pulse Rate 87 86 Respiratory Rate Blood Pressure 123/83 Pulse Oximetry 96 96 Oxygen Delivery Method 09/09/22 22:30 09/09/22 23:00 Temperature Pulse Rate 86 82 Respiratory Rate Blood Pressure Pulse Oximetry 96 96 Oxygen Delivery Method Medical Decision Making Lab Data Lab results reviewed: Yes I reviewed the patient's lab results. 09/09/22 21:54 09/09/22 21:54 Labs: Lab Results 09/09/22 09/09/22 Range/Units 21:54 21:54 WBC 11.3 H (4.5-11.0) X10^3/uL RBC 3.91 L (4.0-5.2) X10^6/uL Hgb 12.0 (12.0-16.0) g/dL Hct 36.9 (36-46) % MCV 94.4 (80-100) fL MCH 30.7 (26-34) PG MCHC 32.6 (30-36) % RDW 15.7 H (11.6-14.8) % Plt Count 487 H (150-400) X10^3/uL Neut % (Auto) 67.0 (50-75) % Lymph % (Auto) 21.6 L (25-40) % [place] % (Auto) 7.2 (3-14) % Eos % (Auto) 2.6 (2-4) % Baso % (Auto) 1.6 (0-2) % Neut # (Auto) 7600 H (7691-3363) /uL Lymph # (Auto) 2400 (9522-9731) /uL [place] # (Auto) 800 (0-900) /uL Eos # (Auto) 300 (0-450) /uL Baso # (Auto) 200 H (0-100) /uL Sodium 138 (137-145) mmol/L Potassium 4.4 (3.4-5.1) mmol/L Chloride 106 (98-107) mmol/L Carbon Dioxide 19 L (22-32) mmol/L BUN 20 H (7-17) mg/dL Creatinine 0.67 (0.52-1.04) mg/dL Estimated GFR > 60 (>60) mL/min BUN/Creatinine Ratio 29.9 H (6-22) Glucose 102 (80-110) mg/dL Calcium 9.0 (8.4-10.2) mg/dL Urine Dip Bedside Urine Glucose Negative Bedside Urine Bilirubin - Negative Bedside Urine Ketone - Negative Urine Specific [place] 1.020 Bedside Urine Occult Blood - Negative Bedside Urine pH 5.0 Bedside Urine Protein - Negative Bedside Urine Urobilinogen - Negative Bedside Urine Nitrite - Negative Bedside Urine Leukocytes - Negative Esterase Point of care testing: Urine Dip Bedside Urine Glucose Negative Bedside Urine Bilirubin - Negative Bedside Urine Ketone - Negative Urine Specific [place] 1.020 Bedside Urine Occult Blood - Negative Bedside Urine pH 5.0 Bedside Urine Protein - Negative Bedside Urine Urobilinogen - Negative Bedside Urine Nitrite - Negative Bedside Urine Leukocytes - Negative Esterase MDM Narrative Medical decision making narrative: Patient did have a distended abdomen. Bladder scan shows greater than 600 cc of urine. A Baldwin catheter was placed with greater than 800 cc return. Patient was also able to have a large soft bowel movement here in the emergency department. After this patient states she feels much better. Her abdomen is now soft. She is not had any vomiting. No fevers. I have do feel that after the improvement with a Baldwin catheter in her bowel movement that we can hold on any CT scan for now. We will leave the Baldwin catheter in place and have her follow-up with Urology. She was given return precautions. She expressed understanding and agreement. Discharge Plan Departure Patient Disposition: SNF Clinical Impression: Acute urinary retention, Acute constipation Activity Restrictions/Additional Instructions: I recommend that you continue to take all of your medications as directed. Tomorrow contact the urologist at the number provided below for follow-up probably the beginning of next week. Return to the emergency department for any new symptoms. Prescriptions: No Action warfarin 5 mg tablet 5 mg PO DAILY Rx Instructions: 2.5mg on tuesdays atorvastatin [Lipitor] 20 MG tablet 20 mg PO DAILY Qty: 0 furosemide [Lasix] 20 mg tablet 5 mg PO QAM enoxaparin [Lovenox] 40 mg/0.4 mL Syringe 40 mg SUBCUT DAILY 30 Days Qty: 4 0RF Rx Instructions: until INR levels therapeutic Humulin N NPH U-100 Insulin 100 unit/mL Suspension 15 unit SUBCUT TID Qty: 10 0RF oxycodone 5 mg Tablet 10 mg PO Q3H PRN (Reason: Pain, Moderate (4-6)) Qty: 3 0RF lidocaine [Lidoderm] 5 % adhesive patch,medicated 1 patch topical DAILY Qty: 30 0RF Rx Instructions: leave on most painful area for up to 12 hrs allopurinol 100 mg Tablet 200 mg PO DAILY metformin 1,000 mg Tablet 500 mg PO BID lidocaine HCl 2 % Cream 1 applic TOPICAL TID PRN (Reason: pain) gabapentin 300 mg Capsule 200 mg PO TID aspirin 325 mg Tablet 325 mg PO DAILY diltiazem HCl [Cardizem CD] 240 mg capsule,extended release 24hr 240 mg PO DAILY Qty: 20 0RF lisinopril 40 mg tablet 20 mg PO DAILY Stand Alone Forms: Patient Portal/API
[2022-09-09 22:13] LABS: Add Manual Diff / Slide Review NO; Basophils Absolute Auto 200 /uL (0-100); Basophils Percent Auto 1.6 % (0-2); Eosinophils Absolute Auto 300 /uL (0-450); Eosinophils Percent Auto 2.6 % (2-4); Hematocrit 36.9 % (36-46); Lymphocytes Absolute Auto 2400 /uL (1100-4500); Lymphocytes Percent Auto 21.6 % (25-40); Mean Corpuscular HGB Conc 32.6 % (30-36); Mean Corpuscular Hemoglobin 30.7 PG (26-34); Mean Corpuscular Volume 94.4 fL (80-100); Monocytes Absolute Auto 800 /uL (0-900); Monocytes Percent Auto 7.2 % (3-14); Neutrophils Absolute Auto 7600 /uL (1500-7000); Platelet Count 487 X10^3/uL (150-400); Red Blood Cell Count 3.91 X10^6/uL (4.0-5.2); Red Cell Distribution Width 15.7 % (11.6-14.8); White Blood Cell Count 11.3 X10^3/uL (4.5-11.0)
[2022-09-09 22:15] LABS: BUN Creatinine Ratio 29.9 (6-22); Blood Urea Nitrogen 20 mg/dL (7-17); Carbon Dioxide 19 mmol/L (22-32); Chloride 106 mmol/L (98-107); Estimated Glomerular Filt Rate > 60 mL/min (>60); Glucose 102 mg/dL (80-110); HEMOLYSIS < 15 (0-50); Potassium 4.4 mmol/L (3.4-5.1); Sodium 138 mmol/L (137-145)
--- NOTE | 2022-09-09 22:42 | PC.NURSE ---
Patient had large amount of soft, liquid stool, yellow brown in appearance with streak of red seen. Patient continues to be unable to urinate after having bowel movement. 2-way bae placed, 800ml drained after placement. Patient reports feeling much better but states still having some rectal discomfort.
== END 2022-09-10 00:01 ==
PROVIDERS: Emergency Provider Emergency Medicine; PCP Internal Medicine
DX: R33.8 Other retention of urine (principal); K59.00 Constipation, unspecified; R10.9 Unspecified abdominal pain; Z79.899 Other long term (current) drug therapy; Z79.01 Long term (current) use of anticoagulants; R79.89 Other specified abnormal findings of blood chemistry
CPT/HCPCS: 36415; 51798; 80048; 81003; 85025; 99284

== ENCOUNTER 2023-07-13 10:20 | Emergency (ER) | payer MEDICARE, SELFPAY ==
[2022-08-20 18:29] VITALS: BMI 26.9
[2023-07-13 10:22] VITALS: BP 124/71; PULSE 87; RESP 18; TEMP 36.3; O2SAT 92; BMI 24.3
[2023-07-13 10:34] VITALS: PULSE 101; RESP 20; O2SAT 94
[2023-07-13 10:36] VITALS: BP 121/67; PULSE 99; RESP 25; O2SAT 95
--- NOTE | 2023-07-13 10:37 | ED_ITS ---
HPI - GI Bleed General Chief complaint: GI Bleed Stated complaint: INR clininc sent over check rectal bleeding Time Seen by Provider: 07/13/23 10:24 Source: patient, family, RN notes reviewed and old records reviewed Limitations: no limitations History of Present Illness HPI Narrative: This is an 82-year-old female with history of coronary artery disease with cardiac stents, proximal atrial fibrillation on warfarin, hypertension, dyslipidemia, diabetes on insulin. Patient presents with complaint of rectal bleeding started last small amounts of dark red blood with bowel movements which has become more frequent with larger amounts. Patient states occasionally little bit has leaked out. She states no rectal pain but she has had suprapubic pain which she describes as mild. No fevers or chills. She felt a little weak today but no lightheadedness or passing out. No chest pain or shortness breath. No nausea or vomiting. Denies any urinary symptoms. Patient states last warfarin check was on June 15 at 2.9. They had reached out to her INR clinic who told her to come to the ER for evaluation. She has never had a colonoscopy. Patient has not had issues with rectal bleeding in the past. Patient states no surgeries besides her prior cardiac stents. No tobacco, alcohol or recreational drugs. Primary care is Dr. Fariha Rollins. She does follow regularly with Cardiology. She is accompanied by her daughter. Related Data Home Medications Medication Instructions Recorded Confirmed atorvastatin 20 mg tablet (Lipitor) 20 mg PO DAILY ##0 08/22/17 08/21/22 allopurinol 100 mg tablet 200 mg PO DAILY 05/08/19 08/21/22 aspirin 325 mg tablet 325 mg PO DAILY 05/08/19 08/21/22 gabapentin 300 mg capsule 200 mg PO TID 05/08/19 08/21/22 lidocaine HCl 2 % topical cream 1 applic topical TID PRN pain 05/08/19 08/21/22 metformin 1,000 mg tablet 500 mg PO BID 05/08/19 08/21/22 lisinopril 40 mg tablet 20 mg PO DAILY 01/19/21 08/21/22 warfarin 5 mg tablet 5 mg PO DAILY 01/19/21 08/21/22 furosemide 20 mg tablet (Lasix) 5 mg PO QAM 08/21/22 08/21/22 Previous Rx's Medication Instructions Recorded diltiazem HCl 240 mg 240 mg PO DAILY #20 caps 05/08/19 capsule,extended release 24 hr (Cardizem CD) insulin NPH isoph U-100 human 100 15 unit (0.15 mL) SUBCUT TID #10 mL 08/25/22 unit/mL subcutaneous suspension (Humulin N NPH U-100 Insulin (isophane susp)) lidocaine 5 % topical patch 1 patch topical DAILY #30 ea 08/25/22 (Lidoderm) oxycodone 5 mg tablet 10 mg (2 x 5 mg) PO Q3H PRN Pain, 08/25/22 Moderate (4-6) #3 tabs amoxicillin 875 mg-potassium 1 tab PO Q12H 10 days #20 tabs 07/13/23 clavulanate 125 mg tablet Allergies Allergy/AdvReac Type Severity Reaction Status Date / Time No Known Drug Allergies Allergy Verified 08/20/22 10:28 Review of Systems Review of Systems ROS Unobtainable: All systems reviewed & are unremarkable except as noted in HPI and below Patient History Medical History Paroxysmal atrial fibrillation Type 2 diabetes mellitus HTN (hypertension) CAD (coronary artery disease) Surgical History H/O coronary angioplasty Family History Father CAD (coronary artery disease) Mother Cancer Social History household members: family Smoking Status: Never smoker alcohol intake: current Smoking Status: Never smoker alcohol intake frequency: other Substance Use Type: does not use Exam Narrative Exam Narrative: GENERAL: Alert and oriented x three, female in mild distress HEENT: Head normocephalic, atraumatic, EOMI, pupils reactive, face symmetric, moist mucous membranes NECK: Supple, full range of motion CARDIOVASCULAR: Regular rate and rhythm without murmurs, rubs or gallops. RESPIRATORY: Breath sounds equal bilaterally, no wheezes rales or rhonchi. ABDOMEN: Soft, very mild suprapubic tenderness. Slightly distended. Normoactive bowel sounds all 4 quadrants. No guarding or rebound, rigidity, no mass, : No CVA tenderness EXTREMITIES: Normal range of motion, no clubbing or edema. Neurovascularly intact NEUROLOGICAL: Cranial nerves II through XII grossly intact. Moving all extremities SKIN: Warm, dry, no petechiae, no rashes or lesions. Initial Vital Signs Initial Vital Signs: Vital Signs Temperature 97.4 F L 07/13/23 10:22 Pulse Rate 87 07/13/23 10:22 Respiratory Rate 18 07/13/23 10:22 Blood Pressure 124/71 07/13/23 10:22 Pulse Oximetry 92 07/13/23 10:22 Oxygen Delivery Method Room Air 07/13/23 10:22 Course Orders Ordered: ED Orders 07/13/23 10:45 Complete Blood Count AUTO DIFF Stat Comprehensive Metabolic Panel Stat MAG [Magnesium] Stat PTT Partial Thromboplastin Vishnu Stat Prothrombin Time INR Stat Troponin & CK Cardiac Panel Stat Type and Screen Stat 07/13/23 10:54 CT angio Abd/Pel GI Bleed Stat 07/13/23 11:05 EKG-12 Lead Stat Ondansetron HCl (Ondansetron 4 Mg/2 Ml Inj) 4 mg IV NOW PRN PRN Reason: Nausea And Vomiting Ondansetron HCl (Ondansetron 4 Mg Odt) 4 mg SL NOW PRN PRN Reason: Nausea And Vomiting Discontinued Medications Amoxicillin/Clavulanate Potassium (Amoxicillin/Clav 875/125 Mg) 1 tab PO NOW ONE Stop: 07/13/23 12:47 Last Admin: 07/13/23 13:04 Dose: 1 tab Documented By: JAQUELIN Sodium Chloride (Normal Saline 0.9%) 1,000 mls @ 1,000 mls/hr IV BOLUS ONE Stop: 07/13/23 12:28 Last Infusion: 07/13/23 13:19 Dose: Infused Documented By: Admin: 07/13/23 11:34 Dose: 1,000 mls/hr Documented By: JAQUELIN Pantoprazole Sodium (Pantoprazole 40 Mg Vial) 80 mg IV NOW ONE Stop: 07/13/23 10:28 Last Admin: 07/13/23 10:57 Dose: 80 mg Documented By: JAQUELIN Vital Signs Vital signs: Vital Signs - 8 hr 07/13/23 10:22 07/13/23 10:34 07/13/23 10:36 Temperature 97.4 F L Pulse Rate 87 101 H 99 H Respiratory Rate 18 20 25 H Blood Pressure 124/71 Pulse Oximetry 92 94 95 Oxygen Delivery Method Room Air 07/13/23 10:36 07/13/23 11:00 07/13/23 11:30 Temperature Pulse Rate 90 74 Respiratory Rate 21 Blood Pressure 121/67 Pulse Oximetry 95 93 Oxygen Delivery Method 07/13/23 11:31 07/13/23 11:31 Temperature Pulse Rate 91 H Respiratory Rate 23 Blood Pressure 129/64 Pulse Oximetry 95 Oxygen Delivery Method MDM - GI Bleed Lab Data 07/13/23 10:45 07/13/23 10:45 Labs: Lab Results 07/13/23 Range/Units 10:45 WBC 12.6 H (4.5-11.0) X10^3/uL RBC 4.74 (4.0-5.2) X10^6/uL Hgb 13.9 (12.0-16.0) g/dL Hct 43.1 (36-46) % MCV 90.8 (80-100) fL MCH 29.4 (26-34) PG MCHC 32.4 (30-36) % RDW 14.9 H (11.6-14.8) % Plt Count 285 (150-400) X10^3/uL Neut % (Auto) 77.2 H (50-75) % Lymph % (Auto) 14.9 L (25-40) % [place] % (Auto) 5.7 (3-14) % Eos % (Auto) 1.5 L (2-4) % Baso % (Auto) 0.7 (0-2) % Neut # (Auto) 9800 H (7073-3148) /uL Lymph # (Auto) 1900 (4431-2524) /uL [place] # (Auto) 700 (0-900) /uL Eos # (Auto) 200 (0-450) /uL Baso # (Auto) 100 (0-100) /uL PT 38.4 H (9.4-12.5) SECONDS INR 3.3 H (0.9-1.3) APTT 50 H (25.1-36.5) SECONDS Sodium 134 L (137-145) mmol/L Potassium 4.1 (3.4-5.1) mmol/L Chloride 101 (98-107) mmol/L Carbon Dioxide 24 (22-32) mmol/L BUN 35 H (7-17) mg/dL Creatinine 1.27 H (0.52-1.04) mg/dL Estimated GFR 42 L (>60) mL/min BUN/Creatinine Ratio 27.6 H (6-22) Glucose 377 H (80-110) mg/dL Calcium 9.3 (8.4-10.2) mg/dL Magnesium 1.8 (1.6-2.3) mg/dL Total Bilirubin 0.9 (0.2-1.3) mg/dL AST 25 (14-36) IU/L ALT 24 (<35) IU/L Alkaline Phosphatase 101 (38-126) U/L Total Creatine Kinase 51 (30-135) U/L Troponin I < 0.012 (0.01-0.034) ng/mL Total Protein 6.7 (6.3-8.2) g/dL Albumin 3.7 (3.5-5.0) g/dL Globulin 3.0 (1.7-4.1) g/dL Albumin/Globulin Ratio 1.2 (1.0-2.8) Blood Type O Positive Antibody Screen Negative ECG Data Attestation: I personally reviewed and interpreted this ECG as follows: Prior ECG tracings: available for review Interpretation: Atrial flutter with variable rate rate 87 QRS of [address] QTC [address] No acute ST elevation depression noted. Patient has prior EKG from 08/20/2022 which appears similar with no acute ST changes noted. [facility] Narrative Medical decision making narrative: This is an 82-year-old female who presents with complaint of rectal bleeding with dark red blood, no rectal pain but has had suprapubic discomfort. Patient's initial vitals here are appropriate. She is anticoagulated on warfarin. Plan for labs, type and screen, CT abdomen pelvis to evaluate for any obvious mass or inflammation or infection as she is having some suprapubic pain. Patient's workup shows hemoglobin of 10.3, actually improved from August of 2022 normal platelets with a white count of 12.6. INR is 3.3 today. Sodium 134, BUN 35 with a creatinine of 1.27, electrolytes are otherwise appropriate glucose is 377 LFTs are otherwise negative with negative troponin. CTA GI bleed shows diverticulitis of the sigmoid colon recommended follow up colonoscopy to exclude underlying neoplasm, normal appendix, CAD, chronic pancreatitis, uterine fibroids no active bleed currently. Patient has not had any additional bleeding, vital signs of overall been appropriate. Patient after discussion plan for Augmentin, hold her warfarin for the next 2 days her next doses this evening then follow up for repeat INR. Discussed with patient she is likely having bleeding secondary to the inflammation and elevated INR by correcting both of these will likely have decreased bleeding. She has never had a colonoscopy she has not sure if she wishes to pursue but was given contact to do so. Discussed return precautions. Patient feels comfortable with this plan. Discharge Plan Departure Patient Disposition: Home Clinical Impression: GI bleed, Diverticulitis, Elevated INR Activity Restrictions/Additional Instructions: Please follow-up with your physician for recheck. Your INR is elevated today at 3.3, hold your evening dose of warfarin tonight as well as tomorrow night and have your INR rechecked on . Your imaging does show diverticulitis, it was recommended that you take antibiotics until completed. Prescription was sent to [facility] in [place]. Take antibiotics until completed, 1 tablet every 12 hours times 10 days. It is recommended that you follow-up for colonoscopy after your symptoms have improved. Contact information is below. Return for fevers, new or worsening abdominal back or flank pain, persistent or worsening rectal bleeding, lightheadedness or passing out, new chest pain or shortness of breath or other new or concerning changes. Prescriptions: New amoxicillin-pot clavulanate 875-125 mg tablet 1 tab PO Q12H 10 Days Qty: 20 0RF No Action warfarin 5 mg tablet 5 mg PO DAILY Rx Instructions: 2.5mg on tuesdays atorvastatin [Lipitor] 20 MG tablet 20 mg PO DAILY Qty: 0 furosemide [Lasix] 20 mg tablet 5 mg PO QAM Humulin N NPH U-100 Insulin 100 unit/mL Suspension 15 unit SUBCUT TID Qty: 10 0RF oxycodone 5 mg Tablet 10 mg PO Q3H PRN (Reason: Pain, Moderate (4-6)) Qty: 3 0RF lidocaine [Lidoderm] 5 % adhesive patch,medicated 1 patch topical DAILY Qty: 30 0RF Rx Instructions: leave on most painful area for up to 12 hrs allopurinol 100 mg Tablet 200 mg PO DAILY metformin 1,000 mg Tablet 500 mg PO BID lidocaine HCl 2 % Cream 1 applic TOPICAL TID PRN (Reason: pain) gabapentin 300 mg Capsule 200 mg PO TID aspirin 325 mg Tablet 325 mg PO DAILY diltiazem HCl [Cardizem CD] 240 mg capsule,extended release 24hr 240 mg PO DAILY Qty: 20 0RF lisinopril 40 mg tablet 20 mg PO DAILY Referrals: Kaz Vaughan MD [Physician] - Rocco Leigh MD [Physician] - Fariha Rollins MD [Primary Care Provider] - Stand Alone Forms: Patient Portal/API
--- NOTE | 2023-07-13 10:54 | DI.CT.S_ITS ---
PROCEDURE: CT ANGIO ABD/PEL GI BLEED INDICATIONS: rectal bleeding, dark red, suprapubic pain TECHNIQUE: Noncontrast CT of the abdomen and pelvis is performed. After the administration of intravenous contrast, 2.5 mm thick sections acquired from the diaphragm to the symphysis. 10 mm maximum-intensity projection (MIP) reformats were then acquired. Portal venous phase CT of the abdomen and pelvis is performed. For radiation dose reduction, the following was used: automated exposure control. COMPARISON: None. FINDINGS: Image Quality: Diagnostic. Abdominal aorta: There is mild diffuse plaque causing mild diffuse stenosis of the abdominal aorta without aneurysm nor dissection. Mesenteric arteries: Mild calcific origin stenosis of the celiac artery. Superior mesenteric artery is patent. There is a high-grade inferior mesenteric artery origin stenosis. Renal arteries: Patent without hemodynamically significant stenosis. OTHER: Lower Chest: Calcification of the coronary vasculature. Liver: No solid mass. Gallbladder: No radiopaque gallstones or wall thickening. Biliary ducts: No biliary dilation. Pancreas: No ductal dilation. Scattered pancreatic calcifications. Pancreatic tail atrophy. Spleen: Size is within normal limits. Adrenal Glands: No adrenal nodules. Kidneys and Ureters: No hydronephrosis. No solid mass. No complex renal cystic lesion which requires follow up. Stomach and Bowel: Stomach and small bowel are within normal limits. Appendix is normal. Colon is nondistended. Diverticulosis of the descending and sigmoid colon is present. There is severe thickening of the proximal sigmoid colon which demonstrates moderate surrounding fat stranding without abscess. No evidence of extravasation of contrast into the bowel to indicate active hemorrhage. Peritoneum: No abnormal intraperitoneal fluid. No free air. Ventral Wall: No hernia. Abdominal Nodes: No retroperitoneal or mesenteric adenopathy by size criteria. Vessels: Aorta and inferior vena cava are normal in size. PELVIS: Pelvic Organs: Multiple calcified uterine fibroids Bladder: Unremarkable. Pelvic Nodes: No enlarged lymph nodes. Miscellaneous: No inguinal hernias are seen. Bones: No aggressive osseous abnormality. IMPRESSION: 1. Diverticulitis of the sigmoid colon. Follow-up colonoscopy is recommended to exclude underlying neoplasm. 2. Normal appendix. 3. Coronary artery disease. 4. Chronic pancreatitis. 5. Uterine fibroids. Dictated by: Amna Galeas M.D. on 07/13/2023 at 11:50 Approved by: Amna Galeas M.D. on 07/13/2023 at 12:09
[2023-07-13 10:55] LABS: Add Manual Diff / Slide Review NO; Basophils Absolute Auto 100 /uL (0-100); Basophils Percent Auto 0.7 % (0-2); Eosinophils Absolute Auto 200 /uL (0-450); Eosinophils Percent Auto 1.5 % (2-4); Hematocrit 43.1 % (36-46); Hemoglobin 13.9 g/dL (12.0-16.0); Lymphocytes Absolute Auto 1900 /uL (1100-4500); Lymphocytes Percent Auto 14.9 % (25-40); Mean Corpuscular HGB Conc 32.4 % (30-36); Mean Corpuscular Hemoglobin 29.4 PG (26-34); Mean Corpuscular Volume 90.8 fL (80-100); Monocytes Absolute Auto 700 /uL (0-900); Monocytes Percent Auto 5.7 % (3-14); Neutrophils Absolute Auto 9800 /uL (1500-7000); Neutrophils Percent Auto 77.2 % (50-75); Platelet Count 285 X10^3/uL (150-400); Red Blood Cell Count 4.74 X10^6/uL (4.0-5.2); Red Cell Distribution Width 14.9 % (11.6-14.8); White Blood Cell Count 12.6 X10^3/uL (4.5-11.0)
[2023-07-13] MEDS: PANTOPRAZOLE 40 MG VIAL 80 MG IV (10:57)
[2023-07-13 11:00] VITALS: PULSE 90; RESP 21; O2SAT 95
[2023-07-13 11:06] LABS: INR 3.3 (0.9-1.3); Prothrombin Time 38.4 SECONDS (9.4-12.5)
[2023-07-13 11:09] LABS: PTT Partial Thromboplastin Tim 50 SECONDS (25.1-36.5)
[2023-07-13 11:10] LABS: Alanine Aminotransferase 24 IU/L (<35); Albumin 3.7 g/dL (3.5-5.0); Albumin Globulin Ratio 1.2 (1.0-2.8); Alkaline Phosphatase 101 U/L (38-126); Aspartate Aminotransferase 25 IU/L (14-36); BUN Creatinine Ratio 27.6 (6-22); Bilirubin Total 0.9 mg/dL (0.2-1.3); Blood Urea Nitrogen 35 mg/dL (7-17); Calcium 9.3 mg/dL (8.4-10.2); Carbon Dioxide 24 mmol/L (22-32); Chloride 101 mmol/L (98-107); Estimated Glomerular Filt Rate 42 mL/min (>60); Glucose 377 mg/dL (80-110); HEMOLYSIS < 15 (0-50); Potassium 4.1 mmol/L (3.4-5.1); Sodium 134 mmol/L (137-145); Total Protein 6.7 g/dL (6.3-8.2)
[2023-07-13 11:16] LABS: Creatine Kinase 51 U/L (30-135); Magnesium 1.8 mg/dL (1.6-2.3)
[2023-07-13 11:27] LABS: Troponin I < 0.012 ng/mL (0.01-0.034)
[2023-07-13 11:30] VITALS: PULSE 74; O2SAT 93
[2023-07-13 11:31] VITALS: BP 129/64; PULSE 91; RESP 23; O2SAT 95
[2023-07-13] MEDS: SODIUM CHLORIDE 0.9% 1,000 ML 1000 ML IV (11:34)
[2023-07-13] MEDS: AMOXICILLIN/CLAV 875/125 MG 1 TAB PO (13:04)
== END 2023-07-13 13:21 | disposition home or self-care (01) ==
PROVIDERS: Emergency Provider Emergency Medicine; PCP Internal Medicine
DX: K57.33 Diverticulitis of large intestine without perforation or abscess with bleeding (principal); R79.1 Abnormal coagulation profile; Z79.899 Other long term (current) drug therapy; Z79.01 Long term (current) use of anticoagulants
CPT/HCPCS: 36415; 74174; 80053; 82550; 83735; 84484; 85025; 85610; 85730; 86850; 86900; 86901; 93005; 96361; 96374; 99284; C9113; Q9967

== ENCOUNTER 2024-09-21 12:48 | Emergency (ER) | payer MEDICARE, SELFPAY ==
[2022-08-20 18:29] VITALS: BMI 26.9
[2024-09-21] VITALS (14 sets, daily range): BP systolic 108–159; BP diastolic 60–86; PULSE 58–102; RESP 16–28; TEMP 37.4–38.1; O2SAT 91–100; BMI 24.7
--- NOTE | 2024-09-21 13:00 | DI.RAD.S_ITS ---
PROCEDURE: XR CHEST 1V INDICATIONS: chest pain TECHNIQUE: One view of the chest was acquired. COMPARISON: [facility], CR, XR CHEST 2V, 09/05/2018, 12:02. FINDINGS: Surgical changes and devices: None. Lungs and pleura: Lungs are clear. No pleural effusions or pneumothorax. Mediastinum: Mediastinal contours appear normal. Heart size is normal. Bones and chest wall: No suspicious bony lesions. Overlying soft tissues appear unremarkable. IMPRESSION: No acute cardiopulmonary abnormality is seen. Approved by: Fercho Mcleod M.D. on 09/21/2024 at 14:13
[2024-09-21 13:14] LABS: Add Manual Diff / Slide Review NO; Basophils Absolute Auto 0 /uL (0-100); Basophils Percent Auto 0.3 % (0-2); Eosinophils Absolute Auto 100 /uL (0-450); Eosinophils Percent Auto 0.7 % (2-4); Hematocrit 45.4 % (36-46); Hemoglobin 14.9 g/dL (12.0-16.0); Lymphocytes Absolute Auto 800 /uL (1100-4500); Lymphocytes Percent Auto 8.4 % (25-40); Mean Corpuscular HGB Conc 32.9 % (30-36); Mean Corpuscular Hemoglobin 30.1 PG (26-34); Mean Corpuscular Volume 91.6 fL (80-100); Monocytes Absolute Auto 700 /uL (0-900); Monocytes Percent Auto 7.3 % (3-14); Neutrophils Absolute Auto 7900 /uL (1500-7000); Neutrophils Percent Auto 83.3 % (50-75); Platelet Count 211 X10^3/uL (150-400); Red Blood Cell Count 4.96 X10^6/uL (4.0-5.2); Red Cell Distribution Width 15.4 % (11.6-14.8); White Blood Cell Count 9.4 X10^3/uL (4.5-11.0)
[2024-09-21 13:19] LABS: INR 2.3 (0.9-1.3); Prothrombin Time 25.8 SECONDS (9.4-12.5)
--- NOTE | 2024-09-21 13:19 | EKG_ITS ---
[place] [id number] [address] [place] [id number] Test Date: 2024-09-21 Pat Name: Sue Zhang Department: [facility] Room: Gender: Female Toe Sewer: KIMO : 1940 Requested By: Order Number: [id number] Reading MD: Arthur Wing Measurements Intervals [place] Rate: 93 P: MA: QRS: 25 QRSD: 88 T: 183 QT: 354 QTc: 440 Interpretive Statements Atrial fibrillation with premature ventricular or aberrantly conducted complexes Low voltage QRS Inferior infarct , age undetermined Cannot rule out Anterior infarct , age undetermined Electronically Signed On 09-26-2024 20:08:40 PDT by Arthur Wnig
[2024-09-21 13:22] LABS: PTT Partial Thromboplastin Tim 44 SECONDS (25.1-36.5)
[2024-09-21 13:25] LABS: Alanine Aminotransferase 33 IU/L (<35); Albumin 4.1 g/dL (3.5-5.0); Albumin Globulin Ratio 1.4 (1.0-2.8); Alkaline Phosphatase 85 U/L (38-126); Aspartate Aminotransferase 44 IU/L (14-36); BUN Creatinine Ratio 30.6 (6-22); Bilirubin Total 1.4 mg/dL (0.2-1.3); Blood Urea Nitrogen 30 mg/dL (7-17); Carbon Dioxide 25 mmol/L (22-32); Chloride 105 mmol/L (98-107); Creatine Kinase 90 U/L (30-135); Estimated Glomerular Filt Rate 57 mL/min (>60); Glucose 124 mg/dL (80-110); HEMOLYSIS 97 (0-50); Lipase 58 U/L (23-300); Magnesium 1.6 mg/dL (1.6-2.3); Potassium 4.5 mmol/L (3.4-5.1); Sodium 140 mmol/L (137-145); Total Protein 7.1 g/dL (6.3-8.2)
[2024-09-21 13:40] LABS: NT-proBNP (BNP-Adult 18+) 444 pg/mL (<450); Troponin I < 0.012 ng/mL (0.01-0.034)
[2024-09-21 14:12] LABS: Influenza A - CEPHEID Flu A NEGATIVE (NEGATIVE); Influenza B - CEPHEID Flu B NEGATIVE (NEGATIVE); Respiratory Syncytial Virus Negative (Negative)
[2024-09-21 14:13] LABS: COVID-19 CEPHEID 4-PLEX PCR Negative (Negative)
--- NOTE | 2024-09-21 14:30 | ED_ITS ---
HPI - Neuro Symptoms/Deficit General Chief Complaint: Neuro Symptoms/Deficit Stated Complaint: Sleepy all day , saying weird things , weak Time Seen by Provider: 09/21/24 13:09 Source: family Mode of arrival: Family Vehicle History of Present Illness HPI Narrative: 83-year-old female with no history of prior stroke or TIA, had generalized weakness this morning, single episode of nonbloody emesis, no diarrhea. No fevers or chills. No chest pain or shortness of breath. No focal weakness to face arm or leg. No focal numbness to face arm or leg. No painful urination or frequency of urination. She has not recently been treated with antibiotics. No changes in chronic medications. No trouble with vision, speech, swallowing. Able to ambulate. On Anticoagulants: Yes Related Data Home Medications Medication Instructions Recorded Confirmed atorvastatin 20 mg tablet (Lipitor) 20 mg PO DAILY ##0 08/22/17 10/19/23 allopurinol 100 mg tablet 200 mg PO DAILY 05/08/19 10/19/23 aspirin 325 mg tablet 325 mg PO DAILY 05/08/19 10/19/23 gabapentin 300 mg capsule 200 mg PO TID 05/08/19 10/19/23 lidocaine HCl 2 % topical cream 1 applic topical TID PRN pain 05/08/19 10/19/23 metformin 1,000 mg tablet 500 mg PO BID 05/08/19 10/19/23 lisinopril 40 mg tablet 20 mg PO DAILY 01/19/21 10/19/23 warfarin 5 mg tablet 5 mg PO DAILY 01/19/21 10/19/23 furosemide 20 mg tablet (Lasix) 5 mg PO QAM 08/21/22 10/19/23 empagliflozin 10 mg tablet 10 mg PO QAM 10/19/23 10/19/23 (Jardiance) Previous Rx's Medication Instructions Recorded diltiazem HCl 240 mg 240 mg PO DAILY #20 caps 05/08/19 capsule,extended release 24 hr (Cardizem CD) insulin NPH isoph U-100 human 100 15 unit (0.15 mL) SUBCUT TID #10 mL 08/25/22 unit/mL subcutaneous suspension (Humulin N NPH U-100 Insulin (isophane susp)) lidocaine 5 % topical patch 1 patch topical DAILY #30 ea 08/25/22 (Lidoderm) oxycodone 5 mg tablet 10 mg (2 x 5 mg) PO Q3H PRN Pain, 08/25/22 Moderate (4-6) #3 tabs cefuroxime axetil 500 mg tablet 500 mg PO BID #14 tabs 09/21/24 Allergies Allergy/AdvReac Type Severity Reaction Status Date / Time No Known Drug Allergies Allergy Verified 10/19/23 11:52 Review of Systems Hematologic/Lymphatic On Anticoagulants: Yes Patient History Medical History Paroxysmal atrial fibrillation Type 2 diabetes mellitus HTN (hypertension) CAD (coronary artery disease) Surgical History H/O coronary angioplasty Family History Father CAD (coronary artery disease) Mother Cancer Social History household members: family Smoking Status: Never smoker alcohol intake: current Smoking Status: Never smoker alcohol intake frequency: other Exam Narrative Exam Narrative: GENERAL: Well-developed patient, in mild distress. HEAD: Atraumatic. Normocephalic. EYES: Pupils equal round and reactive. Extraocular motions intact. No scleral icterus. No injection or drainage. ENT: Nose without bleeding, purulent drainage. Throat without erythema, tonsillar hypertrophy or exudate. Airway patent. NECK: Trachea midline. Non tender CARDIOVASCULAR: Regular rate and rhythm without murmurs, gallops, or rubs. RESPIRATORY: Clear to auscultation. Breath sounds equal bilaterally. No wheezes, rales, or rhonchi. GASTROINTESTINAL: Abdomen soft, non-tender, nondistended. EXTREMITIES: No edema or joint tenderness. BACK: Nontender without deformity or crepitance. No flank tenderness. NEURO: AOx3. Cranial nerves normal as tested. Motor 5/5 bilateral upper extremities. Motor 5/5 bilateral lower extremities. [id number] testing normal right and left side. Finger light touch intact upper mid lower face, neck, upper extremities, lower extremities. SKIN: No rash or erythema of visible areas Initial Vital Signs Initial Vital Signs: Vital Signs Pulse Rate 82 09/21/24 12:57 Pulse Oximetry 93 09/21/24 12:57 Course Orders Ordered: ED Orders 09/21/24 13:00 XR chest 1V Stat EKG-12 Lead Stat 09/21/24 13:05 Complete Blood Count AUTO DIFF Stat Comprehensive Metabolic Panel Stat Lactate (Lactic Acid) Stat Lipase Stat Magnesium Stat NT-proBNP (BNP-Adult 18+) Stat PTT Partial Thromboplastin Vishnu Stat Prothrombin Time INR Stat Troponin & CK Cardiac Panel Stat 09/21/24 13:20 Covid-19 + FLU A/B + RSV - PCR Stat 09/21/24 14:39 CT head/brain wo con Stat 09/21/24 16:05 UA Complete [Urinalysis and Microscopic] Stat Urine Culture Stat Discontinued Medications Acetaminophen (Acetaminophen 325 Mg Tablet) 975 mg PO NOW ONE Stop: 09/21/24 16:16 Last Admin: 09/21/24 16:22 Dose: 975 mg Documented By: SHAI Cefuroxime Axetil (Cefuroxime 250 Mg Tablet) 500 mg PO NOW ONE Stop: 09/21/24 16:39 Last Admin: 09/21/24 16:49 Dose: 500 mg Documented By: SANDRA Cefuroxime Axetil (Cefuroxime 250 Mg Tablet) 500 mg PO NOW ONE Stop: 09/21/24 16:43 Last Admin: 09/21/24 16:49 Dose: Not Given Documented By: SANDRA Levetiracetam 2,000 mg/ Sodium (Chloride) 120 mls @ 480 mls/hr IV NOW ONE Stop: 09/21/24 13:44 Last Admin: 09/21/24 13:51 Dose: Not Given Documented By: SHAI Vital Signs Vital signs: Vital Signs - 8 hr 09/21/24 12:57 09/21/24 13:00 09/21/24 13:30 Temperature Pulse Rate 82 71 84 Respiratory Rate 28 H 24 Blood Pressure Pulse Oximetry 93 94 Oxygen Delivery Method Oxygen Flow Rate 09/21/24 13:30 09/21/24 14:00 09/21/24 14:00 Temperature 99.3 F Pulse Rate 80 95 H Respiratory Rate 16 24 Blood Pressure 112/69 129/73 Pulse Oximetry 93 92 Oxygen Delivery Method Room Air Nasal Cannula Oxygen Flow Rate 2 09/21/24 14:00 09/21/24 14:30 09/21/24 14:30 Temperature Pulse Rate 91 H Respiratory Rate 22 Blood Pressure 108/61 127/70 Pulse Oximetry 94 Oxygen Delivery Method Oxygen Flow Rate 09/21/24 14:52 09/21/24 14:52 09/21/24 15:00 Temperature Pulse Rate 97 H 99 H Respiratory Rate 20 20 Blood Pressure 122/60 Pulse Oximetry 100 95 Oxygen Delivery Method Room Air Oxygen Flow Rate 09/21/24 15:00 09/21/24 15:30 09/21/24 15:30 Temperature Pulse Rate 102 H Respiratory Rate 26 H Blood Pressure 130/60 138/86 Pulse Oximetry 91 Oxygen Delivery Method Oxygen Flow Rate 09/21/24 16:01 09/21/24 16:07 09/21/24 16:07 Temperature Pulse Rate 58 L 101 H Respiratory Rate 18 Blood Pressure 159/74 H Pulse Oximetry 99 93 Oxygen Delivery Method Room Air Oxygen Flow Rate 09/21/24 16:14 09/21/24 16:22 09/21/24 16:30 Temperature 100.6 F H 100.6 F H Pulse Rate 101 H Respiratory Rate Blood Pressure Pulse Oximetry 95 Oxygen Delivery Method Oxygen Flow Rate 09/21/24 17:00 Temperature Pulse Rate 96 H Respiratory Rate Blood Pressure Pulse Oximetry Oxygen Delivery Method Oxygen Flow Rate MDM - Neuro Symptoms/Deficit Lab Data Attestation: I reviewed the patient's lab results. Lab results narrative: White blood cell count 9400, hemoglobin 14.9, platelets adequate. Glucose 124. BUN 30 with creatinine 0.98 normal renal function. Remainder of basic mental bulk panel normal. T bili 1.4, AST 44, ALT normal, alkaline phosphatase normal. Lipase normal. Troponin negative/unmeasurable. BNP not elevated. COVID flu influenza negative. 09/21/24 13:05 09/21/24 13:05 Labs: Lab Results 09/21/24 09/21/24 09/21/24 Range/Units 13:05 13:20 16:05 WBC 9.4 (4.5-11.0) X10^3/uL RBC 4.96 (4.0-5.2) X10^6/uL Hgb 14.9 (12.0-16.0) g/dL Hct 45.4 (36-46) % MCV 91.6 (80-100) fL MCH 30.1 (26-34) PG MCHC 32.9 (30-36) % RDW 15.4 H (11.6-14.8) % Plt Count 211 (150-400) X10^3/uL Neut % (Auto) 83.3 H (50-75) % Lymph % (Auto) 8.4 L (25-40) % [place] % (Auto) 7.3 (3-14) % Eos % (Auto) 0.7 L (2-4) % Baso % (Auto) 0.3 (0-2) % Neut # (Auto) 7900 H (2547-0333) /uL Lymph # (Auto) 800 L (5439-5413) /uL [place] # (Auto) 700 (0-900) /uL Eos # (Auto) 100 (0-450) /uL Baso # (Auto) 0 (0-100) /uL PT 25.8 H (9.4-12.5) SECONDS INR 2.3 H (0.9-1.3) APTT 44 H (25.1-36.5) SECONDS Sodium 140 (137-145) mmol/L Potassium 4.5 (3.4-5.1) mmol/L Chloride 105 (98-107) mmol/L Carbon Dioxide 25 (22-32) mmol/L BUN 30 H (7-17) mg/dL Creatinine 0.98 (0.52-1.04) mg/dL Estimated GFR 57 L (>60) mL/min BUN/Creatinine Ratio 30.6 H (6-22) Glucose 124 H (80-110) mg/dL Lactate 2.0 (0.7-2.1) mmol/L Calcium 9.0 (8.4-10.2) mg/dL Magnesium 1.6 (1.6-2.3) mg/dL Total Bilirubin 1.4 H (0.2-1.3) mg/dL AST 44 H (14-36) IU/L ALT 33 (<35) IU/L Alkaline Phosphatase 85 (38-126) U/L Total Creatine Kinase 90 (30-135) U/L Troponin I < 0.012 (0.01-0.034) ng/mL NT-Pro-B Natriuret Pep 444 (<450) pg/mL Total Protein 7.1 (6.3-8.2) g/dL Albumin 4.1 (3.5-5.0) g/dL Globulin 3.0 (1.7-4.1) g/dL Albumin/Globulin Ratio 1.4 (1.0-2.8) Lipase 58 (23-300) U/L Urine Color Yellow Urine Appearance Clear Urine pH 6.0 (4.5-8.0) Ur Specific [place] 1.010 (1.000-1.035) Urine Protein Trace H (Negative) Urine Glucose (UA) 3+ H (Negative) g/dL Urine Ketones Trace H (NEGATIVE) Urine Occult Blood Negative (Negative) Urine Nitrate Negative (Negative) Urine Bilirubin Negative (NEGATIVE) Urine Urobilinogen 0.2 (0.2) E.U./dL Ur Leukocyte Esterase Negative (NEGATIVE) Urine RBC None seen (0-5/HPF) Urine WBC 5-10/hpf H (0-5/HPF) Ur Squamous Epith Cells 10-30 /hpf H D (0-5/HPF) Ur Transition Epith Cell 1-5/hpf (0-5/HPF) Ur Renal Epithelial Cell 1-5/hpf H (0-1/HPF) Urine Bacteria Few (2-10) H (None) Ur Culture Indicated? Specimen cultured Vol Urine Centrifuged 10ml (spun) SARS-CoV-2 (PCR) Negative (Negative) Influenza A (RT-PCR) Flu a negative (NEGATIVE) Influenza B (RT-PCR) Flu b negative (NEGATIVE) RSV (PCR) Negative (Negative) Imaging Data Chest x-ray: Radiologist's Impression: [address] [address] XRay Report Signed Patient: Sue Zhang MR#: [id number] : 1940 Acct:[id number] Age/Sex: 83 / F Date of Service: 09/21/24 Loc: ED Accession Number: [id number] Procedure: XR chest 1V Ordering Provider: Rico Norwood MD PROCEDURE: XR CHEST 1V INDICATIONS: chest pain TECHNIQUE: One view of the chest was acquired. COMPARISON: [facility], [facility], XR CHEST 2V, 09/05/2018, 12:02. FINDINGS: Surgical changes and devices: None. Lungs and pleura: Lungs are clear. No pleural effusions or pneumothorax. Mediastinum: Mediastinal contours appear normal. Heart size is normal. Bones and chest wall: No suspicious bony lesions. Overlying soft tissues appear unremarkable. IMPRESSION: No acute cardiopulmonary abnormality is seen. Approved by: Fercho Mcleod M.D. on 09/21/2024 at 14:13 CT scan - head: Radiologist's Impression: Close Head CT (Signed) Mcleod,Fercho - 09/21/24 Chest X-Ray (Signed) Mcleod,Fercho - 09/21/24 Launch?[address] [address] [address] Scan Report Signed Patient: Sue Zhang MR#: [id number] : 1940 Acct:[id number] Age/Sex: 83 / F Date of Service: 09/21/24 Loc: ED Accession Number: [id number] Procedure: CT head/brain wo con Ordering Provider: Rico Norwood MD PROCEDURE: CT HEAD/BRAIN WO CON INDICATIONS: alt MSE TECHNIQUE: Noncontrast 4.5 mm thick angled axial sections acquired from the foramen magnum to the vertex, with coronal and sagittal reformats. For radiation dose reduction, the following was used: automated exposure control, adjustment of mA and/or kV according to patient size. COMPARISON: None. FINDINGS: Image quality: Diagnostic. CSF spaces: Basal cisterns are patent. No extra-axial fluid collections. The ventricles are symmetric in size and shape. Brain: No acute intracranial hemorrhage or mass effect. There is mild cerebral volume loss for age, with resultant ventricular and sulcal prominence. There are periventricular and deep white matter chronic small vessel ischemic changes. There is intracranial internal carotid artery atherosclerosis. Skull and face: Calvarium and visualized facial bones appear intact, without suspicious lesions. Sinuses: Visualized sinuses and mastoids are clear. IMPRESSION: No acute intracranial pathology. Approved by: Fercho Mcleod M.D. on 09/21/2024 at 14:58 ECG Data Attestation: I personally reviewed and interpreted this ECG as follows: Interpretation: Atrial fibrillation with PVCs. No obvious ST segment elevation or depression changes. QRS 88, QTC 440. MDM Narrative Medical decision making narrative: 83-year-old female with generalized weakness, unclear etiology. Afebrile, SIRS screen negative. EKG, CXR, labs pending. UA. CT Head. Lab results: White blood cell count 9400, hemoglobin 14.9, platelets adequate. Glucose 124. BUN 30 with creatinine 0.98 normal renal function. Remainder of basic metabolic panel normal. T bili 1.4, AST 44, ALT normal, alkaline phosphatase normal. Lipase normal. Troponin negative/unmeasurable. BNP not elevated. COVID flu influenza negative. CT head no acute changes. See radiology report. UA suspicious for UTI, culture pending. Takes warfarin. Rx Ceftin, less likely to interact with warfarin, first dose now, prescription sent x7 day course. Home with family. Return precautions discussed. Discharge Plan Departure Patient Disposition: Home Clinical Impression: Generalized weakness, Urinary tract infection Instructions: DI for Urinary Tract Infection (UTI) Activity Restrictions/Additional Instructions: Generalized weakness. Urine mildly suspicious for infection, urine culture by protocol was ordered. CT brain study showed no acute changes. No other lab abnormality seemed obvious for definite cause. Oral cefuroxime dose given to treat for possible urinary tract infection, which does not interact with your warfarin medication anticoagulation. Further cefuroxime oral antibiotics to be going to your pharmacy. Take further antibiotics as directed. Recheck symptoms early next week with your regular doctor. Return earlier to this/nearest emergency department for any change worsening symptoms or any concerns prior. Prescriptions: New cefuroxime axetil 500 mg tablet 500 mg PO BID Qty: 14 0RF No Action warfarin 5 mg tablet 5 mg PO DAILY Rx Instructions: 2.5mg on tuesdays Jardiance 10 mg tablet 10 mg PO QAM atorvastatin [Lipitor] 20 MG tablet 20 mg PO DAILY Qty: 0 furosemide [Lasix] 20 mg tablet 5 mg PO QAM Humulin N NPH U-100 Insulin 100 unit/mL Suspension 15 unit SUBCUT TID Qty: 10 0RF oxycodone 5 mg Tablet 10 mg PO Q3H PRN (Reason: Pain, Moderate (4-6)) Qty: 3 0RF lidocaine [Lidoderm] 5 % adhesive patch,medicated 1 patch topical DAILY Qty: 30 0RF Rx Instructions: leave on most painful area for up to 12 hrs allopurinol 100 mg Tablet 200 mg PO DAILY metformin 1,000 mg Tablet 500 mg PO BID lidocaine HCl 2 % Cream 1 applic TOPICAL TID PRN (Reason: pain) gabapentin 300 mg Capsule 200 mg PO TID aspirin 325 mg Tablet 325 mg PO DAILY diltiazem HCl [Cardizem CD] 240 mg capsule,extended release 24hr 240 mg PO DAILY Qty: 20 0RF lisinopril 40 mg tablet 20 mg PO DAILY Referrals: Fariha Rollins MD [Primary Care Provider] - Stand Alone Forms: Patient Portal/API/Survey
--- NOTE | 2024-09-21 14:39 | DI.CT.S_ITS ---
PROCEDURE: CT HEAD/BRAIN WO CON INDICATIONS: alt MSE TECHNIQUE: Noncontrast 4.5 mm thick angled axial sections acquired from the foramen magnum to the vertex, with coronal and sagittal reformats. For radiation dose reduction, the following was used: automated exposure control, adjustment of mA and/or kV according to patient size. COMPARISON: None. FINDINGS: Image quality: Diagnostic. CSF spaces: Basal cisterns are patent. No extra-axial fluid collections. The ventricles are symmetric in size and shape. Brain: No acute intracranial hemorrhage or mass effect. There is mild cerebral volume loss for age, with resultant ventricular and sulcal prominence. There are periventricular and deep white matter chronic small vessel ischemic changes. There is intracranial internal carotid artery atherosclerosis. Skull and face: Calvarium and visualized facial bones appear intact, without suspicious lesions. Sinuses: Visualized sinuses and mastoids are clear. IMPRESSION: No acute intracranial pathology. Approved by: Fercho Mcleod M.D. on 09/21/2024 at 14:58
[2024-09-21 16:15] LABS: Appearance Urine UA CLEAR; Bilirubin Urine UA NEGATIVE (NEGATIVE); Color Urine UA YELLOW; Glucose Urine UA 3+ g/dL (Negative); Ketones Urine UA TRACE (NEGATIVE); Leukocyte Esterase Urine UA NEGATIVE (NEGATIVE); Nitrite Urine UA NEGATIVE (Negative); Occult Blood Urine UA NEGATIVE (Negative); Protein Urine UA TRACE (Negative); Urobilinogen Urine UA 0.2 E.U./dL (0.2)
[2024-09-21] MEDS: ACETAMINOPHEN 325 MG TABLET 975 MG PO (16:22)
[2024-09-21 16:26] LABS: Bacteria Urine Few (2-10); RBC Urine None Seen (0-5/HPF); Squamous Epithelial Cell Urine 10-30 /HPF (0-5/HPF); Transitional Epi Cells Urine 1-5/HPF (0-5/HPF); Urine Volume 10mL (spun); WBC Urine 5-10/HPF (0-5/HPF)
[2024-09-21 16:27] LABS: Culture Indicated Urine Specimen Cultured; Renal Epithelial Cells Urine 1-5/HPF (0-1/HPF)
[2024-09-21] MEDS: cefUROXime 250 MG TABLET 500 MG PO (16:49)
== END 2024-09-21 17:34 | disposition home or self-care (01) ==
PROVIDERS: Emergency Provider Emergency Medicine; PCP Internal Medicine
DX: N39.0 Urinary tract infection, site not specified (principal); R53.1 Weakness; R11.10 Vomiting, unspecified; Z79.01 Long term (current) use of anticoagulants
CPT/HCPCS: 0241U; 36415; 70450; 71045; 80053; 81001; 82550; 83605; 83690; 83735; 83880; 84484; 85025; 85610; 85730; 87077; 87086; 87147; 93005; 99284; 99285